=== PATIENT | female | born 1955 | race Caucasian/White ===

== ENCOUNTER 2024-04-12 12:55 | Outpatient (CLI) | payer MEDICARE, SELFPAY ==
[2024-04-12 13:39] LABS: Alanine Aminotransferase 18 U/L (6-35); Albumin Level 4.7 g/dL (3.5-5.1); Alkaline Phosphatase 111 U/L (38-126); Anion Gap 9 mmol/L (4-12); Aspartate Amino Transferase 24 U/L (14-36); Bilirubin,Total 0.6 mg/dL (0.2-1.3); Blood Urea Nitrogen 34 mg/dL (7-17); Calcium 9.9 mg/dL (8.4-10.2); Carbon Dioxide 27 mmol/L (22-30); Chloride 106 mmol/L (98-107); Estimated Glomerular Filt Rate 41; Glucose 89 mg/dL (65-110); Phosphorus 3.5 mg/dL (2.5-4.5); Sodium 142 mmol/L (137-145)
[2024-04-12 13:51] LABS: Parathyroid Intact 29.6 pg/mL (7.5-53.5)
[2024-04-12 14:11] LABS: Vitamin D 25 Hydroxy 63.5 ng/mL
[2024-04-14 15:33] LABS: Ionized Calcium 5.1 mg/dL (4.7-5.5)
== END 2024-04-12 12:56 | disposition home or self-care (01) ==
PROVIDERS: PCP Family Medicine; Visit Provider Nurse Practitioner Family
DX: M81.0 Age-related osteoporosis without current pathological fracture (principal); R94.4 Abnormal results of kidney function studies
CPT/HCPCS: 36415; 80053; 82306; 82330; 83735; 83970; 84100

== ENCOUNTER 2024-05-24 12:27 | Outpatient (CLI) | payer MEDICARE, SELFPAY ==
[2024-05-24 13:05] LABS: Alanine Aminotransferase 20 U/L (6-35); Albumin Level 4.6 g/dL (3.5-5.1); Alkaline Phosphatase 114 U/L (38-126); Anion Gap 12 mmol/L (4-12); Aspartate Amino Transferase 24 U/L (14-36); Bilirubin,Total 0.5 mg/dL (0.2-1.3); Blood Urea Nitrogen 40 mg/dL (7-17); Calcium 9.7 mg/dL (8.4-10.2); Carbon Dioxide 24 mmol/L (22-30); Chloride 107 mmol/L (98-107); Estimated Glomerular Filt Rate 50; Glucose 87 mg/dL (65-110); Magnesium 1.9 mg/dL (1.6-2.3); Phosphorus 3.2 mg/dL (2.5-4.5); Potassium 3.7 mmol/L (3.4-5.0); Sodium 143 mmol/L (137-145)
== END 2024-05-24 12:28 | disposition home or self-care (01) ==
LOC: ANHLAB 12:32
PROVIDERS: PCP Family Medicine; Visit Provider Nurse Practitioner Family
DX: M81.0 Age-related osteoporosis without current pathological fracture (principal); E55.9 Vitamin D deficiency, unspecified; R94.4 Abnormal results of kidney function studies
CPT/HCPCS: 36415; 80053; 83735; 84100

== ENCOUNTER 2024-06-21 13:10 | Outpatient (CLI) | payer MEDICARE, SELFPAY ==
[2024-06-21 13:59] LABS: Alanine Aminotransferase 25 U/L (6-35); Albumin Level 4.4 g/dL (3.5-5.1); Alkaline Phosphatase 125 U/L (38-126); Anion Gap 12 mmol/L (4-12); Aspartate Amino Transferase 29 U/L (14-36); Bilirubin,Total 0.5 mg/dL (0.2-1.3); Blood Urea Nitrogen 41 mg/dL (7-17); Carbon Dioxide 25 mmol/L (22-30); Chloride 99 mmol/L (98-107); Estimated Glomerular Filt Rate 50; Glucose 93 mg/dL (65-110); Magnesium 2.3 mg/dL (1.6-2.3); Phosphorus 3.7 mg/dL (2.5-4.5); Potassium 3.8 mmol/L (3.4-5.0); Sodium 136 mmol/L (137-145)
[2024-06-21 14:15] LABS: Vitamin D 25 Hydroxy 74.9 ng/mL
== END 2024-06-21 13:11 | disposition home or self-care (01) ==
LOC: ANHLAB 13:15
PROVIDERS: PCP Family Medicine; Visit Provider Nurse Practitioner Family
DX: M81.0 Age-related osteoporosis without current pathological fracture (principal); R94.4 Abnormal results of kidney function studies; E55.9 Vitamin D deficiency, unspecified
CPT/HCPCS: 36415; 80053; 82306; 83735; 84100

== ENCOUNTER 2024-07-26 13:11 | Outpatient (CLI) | payer MEDICARE, SELFPAY ==
[2024-07-26 14:02] LABS: Alanine Aminotransferase 21 U/L (6-35); Albumin Level 4.4 g/dL (3.5-5.1); Alkaline Phosphatase 116 U/L (38-126); Anion Gap 11 mmol/L (4-12); Aspartate Amino Transferase 26 U/L (14-36); Bilirubin,Total 0.5 mg/dL (0.2-1.3); Blood Urea Nitrogen 33 mg/dL (7-17); Carbon Dioxide 24 mmol/L (22-30); Chloride 106 mmol/L (98-107); Estimated Glomerular Filt Rate 50; Glucose 90 mg/dL (65-110); Magnesium 2.1 mg/dL (1.6-2.3); Phosphorus 2.9 mg/dL (2.5-4.5); Sodium 141 mmol/L (137-145)
[2024-07-26 14:17] LABS: Vitamin D 25 Hydroxy 69.5 ng/mL
[2024-07-31 11:43] LABS: Ionized Calcium 4.7 mg/dL (4.7-5.5)
== END 2024-07-26 13:12 | disposition home or self-care (01) ==
PROVIDERS: PCP Family Medicine; Visit Provider Nurse Practitioner Family
DX: M81.0 Age-related osteoporosis without current pathological fracture (principal); R94.4 Abnormal results of kidney function studies
CPT/HCPCS: 36415; 80053; 82306; 82330; 83735; 83970; 84100

== ENCOUNTER 2024-08-23 12:07 | Outpatient (CLI) | payer MEDICARE, SELFPAY ==
[2024-08-23 12:56] LABS: Alanine Aminotransferase 17 U/L (6-35); Albumin Level 4.4 g/dL (3.5-5.1); Alkaline Phosphatase 117 U/L (38-126); Anion Gap 10 mmol/L (4-12); Aspartate Amino Transferase 24 U/L (14-36); Bilirubin,Total 0.6 mg/dL (0.2-1.3); Blood Urea Nitrogen 38 mg/dL (7-17); Carbon Dioxide 25 mmol/L (22-30); Chloride 104 mmol/L (98-107); Estimated Glomerular Filt Rate 41; Glucose 96 mg/dL (65-110); Magnesium 2.1 mg/dL (1.6-2.3); Potassium 3.8 mmol/L (3.4-5.0); Sodium 139 mmol/L (137-145)
[2024-08-23 13:30] LABS: Vitamin D 25 Hydroxy 76.3 ng/mL
== END 2024-08-23 12:08 | disposition home or self-care (01) ==
LOC: ANHLAB 12:12
PROVIDERS: PCP Family Medicine; Visit Provider Nurse Practitioner Family
DX: M81.0 Age-related osteoporosis without current pathological fracture (principal); R94.4 Abnormal results of kidney function studies
CPT/HCPCS: 36415; 80053; 82306; 83735; 84100

== ENCOUNTER 2024-09-27 13:29 | Outpatient (CLI) | payer MEDICARE, SELFPAY ==
[2024-09-27 14:17] LABS: Alanine Aminotransferase 25 U/L (6-35); Albumin Level 4.5 g/dL (3.5-5.1); Alkaline Phosphatase 106 U/L (38-126); Anion Gap 9 mmol/L (4-12); Aspartate Amino Transferase 30 U/L (14-36); Bilirubin,Total 0.8 mg/dL (0.2-1.3); Blood Urea Nitrogen 35 mg/dL (7-17); Calcium 9.9 mg/dL (8.4-10.2); Carbon Dioxide 26 mmol/L (22-30); Chloride 105 mmol/L (98-107); Estimated Glomerular Filt Rate 37; Glucose 94 mg/dL (65-110); Phosphorus 3.5 mg/dL (2.5-4.5); Potassium 3.8 mmol/L (3.4-5.0); Sodium 140 mmol/L (137-145)
[2024-09-27 14:58] LABS: Vitamin D 25 Hydroxy 68.9 ng/mL
[2024-09-29 09:53] LABS: Ionized Calcium 5.1 mg/dL (4.7-5.5)
== END 2024-09-27 13:30 | disposition home or self-care (01) ==
PROVIDERS: PCP Family Medicine; Visit Provider Nurse Practitioner Family
DX: M81.0 Age-related osteoporosis without current pathological fracture (principal)
CPT/HCPCS: 36415; 80053; 82306; 82330; 83735; 83970; 84100

== ENCOUNTER 2024-11-03 14:16 | Outpatient (CLI) | payer MEDICARE, SELFPAY ==
[2024-11-03 14:54] LABS: Alanine Aminotransferase 19 U/L (6-35); Albumin Level 4.4 g/dL (3.5-5.1); Alkaline Phosphatase 102 U/L (38-126); Anion Gap 5 mmol/L (4-12); Aspartate Amino Transferase 26 U/L (14-36); Bilirubin,Total 0.6 mg/dL (0.2-1.3); Blood Urea Nitrogen 29 mg/dL (7-17); Calcium 9.5 mg/dL (8.4-10.2); Carbon Dioxide 29 mmol/L (22-30); Chloride 106 mmol/L (98-107); Estimated Glomerular Filt Rate 45; Glucose 93 mg/dL (65-110); Potassium 4.1 mmol/L (3.4-5.0); Sodium 140 mmol/L (137-145)
== END 2024-11-03 14:17 | disposition home or self-care (01) ==
PROVIDERS: PCP Family Medicine; Visit Provider Nurse Practitioner Family
DX: M18.0 Bilateral primary osteoarthritis of first carpometacarpal joints (principal)
CPT/HCPCS: 36415; 80053; 83735; 84100

== ENCOUNTER 2024-12-19 15:36 | Outpatient (CLI) | payer MEDICARE, SELFPAY ==
--- OUTSIDE RECORDS SUMMARY | 2024-12-19 15:41 | XMS_ITS | Clinical Summary ---
Author Organization [facility] [employer] Address [address] [place] [address] Care Team Providers Care Electrical Estimator Name Role Phone Duy Newman MD Primary Care Provider [phone] Source Comments [facility],non-owned Affiliates and Associated Physician Practices is amultiple site organization consisting of ambulatory clinics and hospital sitesin [place], [place], [place] and [place]. This disclosure is being madepursuant to the Care Everywhere program and may not contain all information available regarding this patient. Last updated 18.[facility] [employer] Allergies Active Allergy Reactions Criticality Noted Date Comments Latex Rash Medium 08/08/2018 Vilazodone Hcl Swelling 07/01/2020 Alprazolam Shortness of Breath,Vision Changes High 0 02/28/2019 rash Zyprexa Swelling 03/26/2019 Medications * Be aware that medications may not be up to date on this document. Alwaysverify current medications with the patient. Medication Sig Dispensed Refills Start Date End Date Status Multiple Vitamins-Calcium (GNP ONE DAILY [employer] [facility] PO) Take 1 tablet by mouth once daily Active BIOTIN 5000 PO Take 5,000 mcg by mouth once daily Active Garlic 1000 MG Take 1,000 mg by mouth once daily Active calcium-vitamin D (CALTRATE PLUS D) 600-200 MG-UNIT tablet Take 1 (one) tablet by mouth 2 times daily 180 tablet 5 11/24/2020 Active SUMAtriptan (IMITREX) 50 MG tablet TAKE 1 TABLET AT ONSET OF HEADACHE. MAY REPEAT IN 2 HOURS. NO MORE THAN 2/DAY. 9 tablet 5 11/15/2021 Active citalopram (CELEXA) 20 MG tabletIndications: Generalized anxiety disorder,Depressio n, unspecified depression type Take 1 (one) tablet by mouth once daily 30 tablet 5 11/23/2021 Active Additional Information Patient taking differently: 10 mgOral DAILY, Reported on 03/24/2022 topiramate (TOPAMAX) 50 MG tablet Take 1 (one) tablet by mouth once daily 90 tablet 1 11/25/2021 Active Additional Information Patient taking differently:50 mg OralEVERY MORNING, Reported on 03/24/2022 amLODIPine (NORVASC) 5 MG tablet Take 1 (one) tablet by mouth once daily 90 tablet 1 11/25/2021 Active Additional Information Patient taking differently:5 mg OralEVERY MORNING, Reported on 03/24/2022 famotidine (PEPCID) 40 MG tablet TAKE 1 TABLET BY MOUTH TWICE DAILY 30 tablet 5 12/21/2021 Active Calcium-Magnesium- Vitamin D (CALCIUM 1200+D3 PO) Take 2 tablets by mouth once daily Active vitamin D3 (CHOLECALCIFEROL) 25 MCG (1000 UNITS) tablet Take 1,000 Units by mouth once daily Active ascorbic acid (VITAMIN C) 500 MG tablet Take 500 mg by mouth once daily Active traMADol (ULTRAM) 50 MG tablet Take 2 (two) tablets by mouth 4 times daily 120 tablet 03/24/2022 Active acetaminophen (TYLENOL) 325 MG tablet Take 2 (two) tablets by mouth every 6 hours as needed Maximum allowable Acetaminophen amount = 4 Grams (4000 mg) / 24 hours. 03/24/2022 Active NARCAN 4 MG/0.1ML nasal spray 05/31/2021 Active pravastatin (PRAVACHOL) 40 MG tablet TAKE 1 TABLET BY MOUTH EVERY AT BEDTIME 90 tablet 1 04/17/2022 Active Active Problems Problem Noted Date Diagnosed Date Status post left knee replacement 03/22/2022 Class 2 severe obesity due t o excess calories with serious comorbidity and body mass index (BMI) of 39.0 to 39.9 in adult 05/26/2021 Stage 3 chronic kidney disease 05/26/2021 Bipolar disorder in full remission 05/24/2021 Overview (05/24/2021): Bola Carrillo MD 12/11/19 Atherosclerosis of aorta 05/24/2021 Overview (05/24/2021): Chest xray 11/13/19 Bipolar affective disorder 10/08/2019 Overview (10/08/2019): 07.29.19 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 Essential hypertension 05/09/2019 Hyperlipidemia 05/09/2019 Migraine without status migrainosus, not intract able 05/09/2019 Elevated serum creatinine 01/29/2019 Urinary tract infection without hematuria 2018 LISA (generalized anxiety disorder) 11/07/2018 Recurrent major depressive disorder, in remissio n Resolved Problems Problem Noted Date Diagnosed Date Resolved Date Bipolar I disorder, single m anic episode, severe with psychotic features 01/10/2019 9 Hallucinations 01/09/2019 04/18/2019 Acute psychosis 01/09/2019 06/09/2019 Depressive disorder 12/30/2018 04/18/20 19 Immunizations Name Administration Dates Next Due [employer] primary monoval ent 12+ yr 0.3mL Purple cap 09/14/2021,02/02/2021,01/12/2021 INFLUENZA VACCINE, QUADR. (F LUZONE; FLULAVAL; FLUARIX; AFLURIA QUADRIVALENT; 6MO+), 0.5 ML (IIV4) 08/11/2021,08/24/2020,01/10/2019 Pneumococcal Pcv13 Conj 11/15/2021 TDAP (7yrs+) 08/08/2018 Family History Medical History Relation Name Comments Cancer - Ovarian Maternal Grandmother pos t menopausal Cancer - Breast Sister Relation Name Status Comments Maternal Grandmother Sister Social History Tobacco Use Types Packs/Day Years Used Date Smoking Tobacco: Former Cigarettes 0.3 15 0 11/12/1995 - 11/12/2010 Smokeless Tobacco: Never Tobacco Cessation:Counseling Given: Yes Alcohol Use Standard Drinks/Week Comments No 0 (1 standard drink = 0.6 oz pur e alcohol) AUDIT-C Answer Date Recorded Q1: How often do you have a drink containing alc ohol? Never 03/22/2022 Average Number of Drinks Not on file 022 Q3: How often do you have si x or more drinks on one occasion? Never 03/22/2022 PHQ-2 Answer Date Recorded PHQ2 TOTAL SCORE 0 03/27/2022 Hunger Vital Sign Answer Date Recorded Within the past 12 months, y ou worried that your food would run out before you got the money to buy more. Never true 03/23/20 22 Within the past 12 months, t he food you bought just didn't last and you didn't have money to get more. Never true 03/23/2022 Sex and Gender Information Value Date Recorded Sex Assigned at Not on file Gender Identity Not on file Sexual Orientation Not on file Last Filed Vital Signs Vital Sign Reading Time Taken Comments Blood Pressure 105/48 03/25/2022 8:11 AM CDT Pulse 65 03/25/2022 8:11 AM CDT Temperature 36.8 C (98.2 F) 03/25/2022 8:11 AM CDT Respiratory Rate 18 03/25/2022 8:11 AM CDT Oxygen Saturation 96% 03/25/2022 8:11 AM CDT Inhaled Oxygen Concentration - - Weight 89 kg (196 lb 3.4 oz) 03/22/2022 5:17 PM CDT Height 154.9 cm (5' 1 ) 03/22/2022 5:17 PM CDT Body Mass Index 37.07 03/22/2022 5:17 PM CDT Plan of Treatment Health Maintenance Due Date Last Done Comments COLOGUARD (AGES 45-75) - COLON CA SCREENING 1956 COLON MONITORING 1956 COLONOSCOPY - COLON CA SCREENING 1956 CT COLONOGRAPHY - COLON CA SCREENING 1955 Colorectal Cancer Screening 1956 FIT - COLON CA SCREENING 1956 FLEX SIG - COLON CA SCREENING 1956 ZOSTER VACCINE (1 of 2) 2006 MAMMOGRAM 08/04/2022 08/04/2020, 07/02/2019 PNEUMOCOCCAL VACCINE 50+ (2 of 2 - PPSV23) 11/15/2022 11/15/2021 COVID-19 VACCINE (4 - season) 2024 09/14/2021, 02/02/2021, 01/12/2021 INFLUENZA VACCINE (#1) 2024 , 08/24/2020, 01/10/2019 MEDICARE AWV CALENDAR YEAR 2024 11/15/2021, 07/01/2020 SCREENING FOR DIABETES 03/25/2025 2, 03/24/2022, 03/23/2022, Additional history exists DTAP/TDAP/TD VACCINES (2 - Td or Tdap) 08/08/2028 08/08/2018 Respiratory Syncytial Virus (RSV) Vaccine Pt: or over 60 yrs (1 - 1-dose 75+ series) 2031 BONE DENSITY TESTING Completed 07/02/2019 HEPATITIS C SCREENING Completed 12/11/2019 HEPATITIS B VACCINE Aged Out No longe r eligible based on patient's age to complete this topic HIB VACCINE Aged Out No longer eligi ble based on patient's age to complete this topic HPV VACCINE Aged Out No longer eligi ble based on patient's age to complete this topic MENINGOCOCCAL (Group B) VACCINE Aged Out No longer eligible based on patient's age to complete this topic MENINGOCOCCAL VACCINE Aged Out No megan avery eligible based on patient's age to complete this topic Medical Devices Implanted Type Area Machine Shop Worker Device Identifier Shelf Expiration Date Model / Serial / Lot Cmnt Bone Plc Mv+G Gnta 40gm Med Vsc Implanted:Qty: 1 on 03/22/2022 by Suman Jones MD at [facility] Patric Left: Knee Heraeus Kulzer Bhavana 08/11/2024 [id number] / / [id number] Cmnt Bone Plc Mv+G Gnta 40gm Med Vsc Implanted:Qty: 1 on 03/22/2022 by Suman Jones MD at [facility] Patric Left: Knee Heraeus Kulzer [employer] 09/11/2023 [id number] / / [id number] Cmpnt Fem Kn Lt 4 Post Stab Gns2 Legion Implanted:Qty: 1 on 03/22/2022 by Suman Jones MD at [facility] Patric Left: Knee [employer] 02/07/2032 [id number] / / [id number] Bsplt Tib Legion 4 Kn Lt Cmnt M Tpr Ti Implanted:Qty: 1 on 03/22/2022 by Suman Jones MD at [facility] Patric Left: Knee [employer] 12/09/2031 [id number] / / [id number] Cmpnt Ptlr 26mm Rsrfc Journey Lck Gns2 Implanted:Qty: 1 on 03/22/2022 by Suman Jones MD at [facility] Patric Left: Knee [employer] 10/19/2031 [id number] / / [id number] Ins Tib 3-4 10mm Kn Xlpe Post Stab Hi Implanted:Qty: 1 on 03/22/2022 by Suman Jones MD at [facility] Patric Left: Knee [employer] 04/15/2027 [id number] / / [id number] Explanted Type Area Machine Shop Worker Device Identifier Shelf Expiration Date Model / Serial / Lot Pin Fx 65mm Spd Strl Explanted:Qty: 1 on 03/22/2022 at [facility] Patric Left: Knee [employer] [id number] / / Pin Fx 30mm Spd Rim Strl Explanted:Qty: 1 on 03/22/2022 at [facility] Patric Left: Knee [employer] [id number] / / Procedures Procedure Name Priority Date/Time Associated Diagnosis Comments RENAL FUNCTION PANEL AM Draw 03/25/2022 6:25 AM CDT MAMMO BILAT SCREENING Routine 08/04/2020 3:03 PM CDT Breast cancer screening HEPATITIS C ANTIBODY Routine 12/11/2019 10:53 AM [employer] Need for influenza vaccination DEXA BONE DENSITY AXIAL SKELETON Routine 07/02/2019 3:56 PM CDT Postmenopausal from Last 3 Months or Most Recently Relevant to Health Maintenance Results * (ABNORMAL) RENAL FUNCTION PANEL (03/25/2022 6:25 AM CDT) [facility] Glucose 99 70 - 125 mg/dL 03/25/2022 7:00 AM CDT [facility] Sodium 136 136 - 145 mmol/L 03/25/2022 7:00 AM CDT [facility] Potassium 5.5(H) 3.4 - 5.1 mmol/L 03/25/2022 7:00 AM CDT [facility] Chloride 104 98 - 107 mmol/L 03/25/2022 7:00 AM CDT [facility] CO2 23 22 - 29 mmol/L 03/25/2022 7:00 AM CDT [facility] Calcium 8.66 8.4 - 10.2 mg/dL 03/25/2022 7:00 AM T [facility] Anion Gap 15 10 - 20 mmol/L 03/25/2022 7:00 AM CDT [facility] BUN 28.0(H) 9.8 - 20.1 mg/dL 03/25/2022 7:00 AM T [facility] Creatinine 1.12(H) 0.57 - 1.11 mg/dL 03/25/2022 7:00 AM T [facility] Albumin 2.9(L) 3.5 - 5.0 gm/dL 03/25/2022 7:00 AM T [facility] Phosphorus 3.06 2.3 - 4.7 mg/dL 03/25/2022 7:00 AM T [facility] eGFR by MDRD 49(L) >60 mL/min/1.7 2 03/25/2022 7:00 AM T [facility] eGFR by MDRD 59(L) >60 mL/min/1.7 3m2 03/25/2022 7:00 AM CDT [facility] Blood BLOOD SPECIMEN / Unknown Lab Venipuncture / Unknown 03/25/2022 6:25 AM CDT 03/25/2022 6:38 AM CDT Juan Alberto Mccormick MD LAB - CHEMISTR Y ORDERABLES Performing Organization Address City/State/[facility] Co de Phone Number [facility] [address] [place], [place] [address] * MAMMO BILAT SCREENING (08/04/2020 3:03 PM CDT) Anatomical Region Laterality Modality Breast Bilateral Mammography 08/04/2020 3:08 PM CDT Impressions 08/04/2020 3:08 PM CDT BI-RADS category 2. RECOMMENDATION: Routine annual screening. A). A negative report should not delay a biopsy if a dominant or clinically suspicious mass is present. B). Adenosis and dense breasts may obscure an underlying neoplasm. C). Study interpreted with computer-aided detection. MQSA BI-RADS Categories: Category 0 - needs additional imaging evaluation. Category 1 - negative. Category 2 - benign findings. Category 3 - probably benign findings, but short interval follow up is recommended. Category 4 - suspicious abnormality and biopsy should be considered though the lesion may well be benign. Category 5 - highly suggestive of malignancy and appropriate action should be taken. Narrative 08/04/2020 3:08 PM CDT PROCEDURE: MAMMO BILAT SCREENING 08/04/2020 3:04 PM HISTORY: Encounter for screening mammogram for malignant neoplasm of breast. FINDINGS AND IMPRESSION: COMPARISON: Prior study/studies dating back to No comparison. FINDINGS: Digital 2-D mammography with CAD was performed and reviewed. 3-D tomosynthesis was performed of the breast(s) in the MLO projection and reviewed. BREAST COMPOSITION: There are scattered areas of fibroglandular density. No masses or abnormal calcifications documented. No change has occurred. Bola Carrillo MD MAMMO ORDERABLES * HEPATITIS C ANTIBODY (12/11/2019 10:53 AM [employer] [facility]) Interpretation Hepatitis C Antibody [place] Negative Negative 12/12/2019 10:59 AM [employer] [facility] ([facility]) Comment: INTERPRETIVE INFORMATION: Hepatitis C Virus Antibody by [place] Index: 0.79 IV or less .................. Negative 0.80 to 0.99 IV .................. Equivocal 1.00 to 10.99 IV ................. Low Positive 11.00 IV or greater .............. High Positive Index Value (IV) = Anti-HCV signal to cutoff (S/C)ratio This assay should not be used for blood donor screening, associated re-entry protocols, or for screening Human Cells, Tissues and Cellular and Tissue-Based Products (HCT/P). Interpretation Hepatitis C Antibody Index 0.05 IV 12/12/2019 10:59 AM [employer] [facility] ([facility]) Comment: Performed by [facility], [address] [place] [address] [email or web address], Jeremy Oneal MD, Lab. Director Blood BLOOD SPECIMEN / Unknown Lab Venipuncture / Unknown 12/11/2019 10:53 AM [employer] [facility] 12/11/2019 11:00 AM [employer] Bola Carrillo MD LAB - CHEMISTRY BARB WYLIE [facility] ([facility]) [address] [place] [address], [facility] * DEXA BONE DENSITY STUDY [id number] (07/02/2019 3:56 PM CDT) Anatomical Region Laterality Modality Radiographic Chelsea ging 07/02/2019 5:02 PM CDT Impressions 07/02/2019 5:03 PM CDT Severe osteopenia approaching osteoporosis Increased risk for fracture Follow-up in one to 2 years. 10 year probability of fracture Major osteoporotic fracture 11.3% Hip fracture 2.1% Narrative 07/02/2019 5:03 PM CDT PROCEDURE: DEXA BONE DENSITY AXIAL SKELETON 07/02/2019 5:02 PM HISTORY: Asymptomatic menopausal state. FINDINGS AND IMPRESSION: COMPARISON: No comparison. HIP JOINTS:. BMD-0.708 g centimeters square T score -2.4 Z score -1.4. LUMBAR SPINE:. BMD-1.060 g centimeters square T score -1.1 Z score -0.3. Procedure Note Lisa Shultz MD - 07/02/2019 PROCEDURE: DEXA BONE DENSITY AXIAL SKELETON 07/02/2019 5:02 PM HISTORY: Asymptomatic menopausal state. FINDINGS AND IMPRESSION: COMPARISON: No comparison. HIP JOINTS:. BMD-0.708 g centimeters square T score -2.4 Z score -1.4. LUMBAR SPINE:. BMD-1.060 g centimeters square T score -1.1 Z score -0.3. IMPRESSION Severe osteopenia approaching osteoporosis Increased risk for fracture Follow-up in one to 2 years. 10 year probability of fracture Major osteoporotic fracture 11.3% Hip fracture 2.1% Bola Carrillo MD DEXA ORDERABLES from Last 3 Months or Most Recently Relevant to Health Maintenance Additional Health Concerns Infection Onset Date Last Indicated MRSA Comment:+ MRSA nares 03/15/22 03/15/2022 03/15/2022 Advance Directives * Full Code (Latest Code Status on File) Date Activated Date Inactivated Comments 03/22/2022 10:32 AM 03/25/2022 6:18 PM * Full Code Date Activated Date Inactivated Comments 01/09/2019 2:21 PM 01/13/2019 11:58 AM Care Teams Electrical Estimator Relationship Specialty Start Date End Date Duy Newman MD [address] [place] [id number] PCP - General Family Medicine 03/15/22
--- OUTSIDE RECORDS SUMMARY | 2024-12-19 15:41 | XMS_ITS | Patient Health Summary ---
Author Organization [facility] Address [address] [place] [address] Care Team Providers Care Electron Beam Welder Name Role Phone Duy Newman MD Primary Care Provider [phone] Note from [facility],non-owned Affiliates and Associated Physician Practices is amultiple site organization consisting of ambulatory clinics and hospital sitesin [place], [place], [place] and [place]. This disclosure is being madepursuant to the Care Everywhere program and may not contain all information available regarding this patient. Last updated 18.[facility] Allergies * Latex(Rash) -Medium Criticality * Vilazodone Hcl(Swelling) * Alprazolam(Shortness of Breath,Vision Changes) -High Criticality * Zyprexa(Swelling) Medications * Be aware that medications may not be up to date on this document. Alwaysverify current medications with the patient. * Multiple Vitamins-Calcium (GNP ONE DAILY WOMENS HEALTH PO) Take 1 tablet by mouth once daily * BIOTIN 5000 PO Take 5,000 mcg by mouth once daily * Garlic 1000 MG Take 1,000 mg by mouth once daily * calcium-vitamin D (CALTRATE PLUS D) 600-200 MG-UNIT tablet(Started 11/24/2020) Take 1 (one) tablet by mouth 2 times daily 5 refills by 11/24/2021 * SUMAtriptan (IMITREX) 50 MG tablet(Started 11/15/2021) TAKE 1 TABLET AT ONSET OF HEADACHE. MAY REPEAT IN 2 HOURS. NO MORE THAN 2/DAY. 5 refills by 11/15/2022 * citalopram (CELEXA) 20 MG tablet(Started 11/23/2021) Take 1 (one) tablet by mouth once daily 5 refills by 11/23/2022 * topiramate (TOPAMAX) 50 MG tablet(Started 11/25/2021) Take 1 (one) tablet by mouth once daily 1 refill by 11/25/2022 * amLODIPine (NORVASC) 5 MG tablet(Started 11/25/2021) Take 1 (one) tablet by mouth once daily 1 refill by 11/25/2022 * famotidine (PEPCID) 40 MG tablet(Started 12/21/2021) TAKE 1 TABLET BY MOUTH TWICE DAILY 5 refills by 12/21/2022 * Ndvdtkt-Kcbhvkrpj-Vcnpqvq D (CALCIUM 1200+D3 PO) Take 2 tablets by mouth once daily * vitamin D3 (CHOLECALCIFEROL) 25 MCG (1000 UNITS) tablet Take 1,000 Units by mouth once daily * ascorbic acid (VITAMIN C) 500 MG tablet Take 500 mg by mouth once daily * traMADol (ULTRAM) 50 MG tablet(Started 03/24/2022) Take 2 (two) tablets by mouth 4 times daily * acetaminophen (TYLENOL) 325 MG tablet(Started 03/24/2022) Take 2 (two) tablets by mouth every 6 hours as needed Maximum allowable Acetaminophen amount = 4 Grams (4000 mg) / 24 hours. * NARCAN 4 MG/0.1ML nasal spray(Started 05/31/2021) * pravastatin (PRAVACHOL) 40 MG tablet(Started 04/17/2022) TAKE 1 TABLET BY MOUTH EVERY AT BEDTIME 1 refill by 04/17/2023 Active Problems Problem Noted Date Diagnosed Date Status post left knee replacement 03/22/2022 Class 2 severe obesity due t o excess calories with serious comorbidity and body mass index (BMI) of 39.0 to 39.9 in adult 05/26/2021 Stage 3 chronic kidney disease 05/26/2021 Bipolar disorder in full remission 05/24/2021 Atherosclerosis of aorta 05/24/2021 Bipolar affective disorder 10/08/2019 Essential hypertension 05/09/2019 Hyperlipidemia 05/09/2019 Migraine without [...] 06/09/2019 Depressive disorder 12/30/2018 04/18/20 19 Immunizations * Covid Pfizer primary monovalent 12+ yr 0.3mL Purple cap(Given 09/14/2021, 02/02/2021, 01/12/2021) * INFLUENZA VACCINE, QUADR. (FLUZONE; FLULAVAL; FLUARIX; AFLURIA QUADRIVALENT; 6MO+), 0.5 ML (IIV4)(Given 08/11/2021, 08/24/2020, 01/10/2019) * Pneumococcal Pcv13 Conj(Given 11/15/2021) * TDAP (7yrs+)(Given 08/08/2018) Social History Tobacco Use Types Packs/Day Years [...] Mass Index 37.07 03/22/2022 5:17 PM CDT Medical Devices Implanted Type Area Production Control Pegboard Clerk Device Identifier Shelf Expiration Date Model / Serial / Lot Cmnt Bone Plc Mv+G Gnta 40gm Med Vsc Implanted:Qty: 1 on 03/22/2022 by Suman Jones MD at [facility] [place] Left: Knee Herae[employer] Kul[employer] Jelenko 08/11/2024 [id number] / / [id number] Cmnt Bone Plc Mv+G Gnta 40gm Med Vsc Implanted:Qty: 1 on 03/22/2022 by Suman Jones MD at [facility] Left: Knee Heraeus Kul[employer] Jelenko 09/11/2023 [id number] / / [id number] Cmpnt Fem Kn Lt 4 Post Stab Gns2 Legion Implanted:Qty: 1 on 03/22/2022 by Suman Jones MD at [facility] Left: Knee [employer] 02/07/2032 [id number] / / [id number] Bsplt Tib Legion 4 Kn Lt Cmnt M Tpr Ti Implanted:Qty: 1 on 03/22/2022 by Suman Jones MD at [facility] Left: Knee [employer] 12/09/2031 [id number] / / [id number] Cmpnt Ptlr 26mm Rsrfc Journey Lck Gns2 Implanted:Qty: 1 on 03/22/2022 by Suman Jones MD at [facility] Left: Knee [employer] 10/19/2031 [id number] / / [id number] Ins Tib 3-4 10mm Kn Xlpe Post Stab Hi Implanted:Qty: 1 on 03/22/2022 by Suman Jones MD at [facility] Left: Knee [employer] 04/15/2027 [id number] / / [id number] Explanted Type Area Production Control Pegboard Clerk Device Identifier Shelf Expiration Date Model / Serial / Lot Pin Fx 65mm Spd Strl Explanted:Qty: 1 on 03/22/2022 at [facility] Left: Knee [employer] [id number] / / Pin Fx 30mm Spd Rim Strl Explanted:Qty: 1 on 03/22/2022 at [facility] Left: Knee [employer] [id number] / / Procedures * XR KNEE RIGHT 4VW OR MORE(Performed 04/20/2023) Performed for Right knee pain, unspecified chronicity * XR KNEE RIGHT 4VW OR MORE(Performed 03/09/2023) Performed for Right knee pain, unspecified chronicity * XR KNEE LEFT 3VW(Performed 03/09/2023) Performed for Left knee pain, unspecified chronicity * XR KNEE LEFT 3VW(Performed 10/20/2022) Performed for Left knee pain, unspecified chronicity * XR KNEE LEFT 3VW(Performed 06/02/2022) Performed for Left knee pain, unspecified chronicity * CARDIAC RHYTHM STRIP ORDER(Performed 03/28/2022) * SARS-COV-2 (COVID-19) RAPID(Performed 03/25/2022) * RENAL FUNCTION PANEL(Performed 03/25/2022) * CBC W AUTO DIFFERENTIAL(Performed 03/25/2022) * COMPREHENSIVE METABOLIC PANEL(Performed 03/24/2022) * CBC W AUTO DIFFERENTIAL(Performed 03/24/2022) * CBC W AUTO DIFFERENTIAL(Performed 03/23/2022) * BASIC METABOLIC PANEL (CALCIUM TOTAL)(Performed 03/23/2022) * XR KNEE LEFT 2VW OR LESS(Performed 03/22/2022) Performed for Status post left knee replacement * GROSS + MICRO EXAM (ILL)(Performed 03/22/2022) Performed for Primary osteoarthritis of left knee * NEURAXIAL BLOCK(Performed 03/22/2022) * ARTHROPLASTY TOTAL KNEE(Performed 03/22/2022) Performed for Primary osteoarthritis of left knee * BLOOD TYPE VERIFICATION(Performed 03/22/2022) * TYPE + SCREEN PANEL(Performed 03/15/2022) Performed for Primary osteoarthritis of left knee, Preop examination * URINALYSIS REFLEX MICROSCOPIC REFLEX CULTURE(Performed 03/15/2022) * CBC W AUTO DIFFERENTIAL(Performed 03/15/2022) Performed for Primary osteoarthritis of left knee, Preop examination * MRSA + SA DNA PCR PANEL(Performed 03/15/2022) Performed for Primary osteoarthritis of left knee, Preop examination * COMPREHENSIVE METABOLIC PANEL(Performed 02/21/2022) Performed for Menopausal osteoporosis * MAGNESIUM BLOOD(Performed 02/21/2022) Performed for Menopausal osteoporosis * PHOSPHORUS BLOOD(Performed 02/21/2022) Performed for Menopausal osteoporosis * MAGNESIUM BLOOD(Performed 01/25/2022) Performed for Menopausal osteoporosis * COMPREHENSIVE METABOLIC PANEL(Performed 01/25/2022) Performed for Menopausal osteoporosis * PHOSPHORUS BLOOD(Performed 01/25/2022) Performed for Menopausal osteoporosis * COMPREHENSIVE METABOLIC PANEL(Performed 12/22/2021) Performed for Menopausal osteoporosis * VITAMIN D 25-HYDROXY(Performed 12/22/2021) Performed for Menopausal osteoporosis * MAGNESIUM BLOOD(Performed 12/22/2021) Performed for Menopausal osteoporosis * PTH INTACT(Performed 12/22/2021) Performed for Menopausal osteoporosis * CALCIUM IONIZED BLOOD(Performed 12/22/2021) Performed for Menopausal osteoporosis * PHOSPHORUS BLOOD(Performed 12/22/2021) Performed for Menopausal osteoporosis * ALKALINE PHOSPHATASE BLOOD BONE SPECIFIC(Performed 12/22/2021) Performed for Menopausal osteoporosis * XR CHEST 2VW(Performed 11/15/2021) Performed for Cough * CALCIUM BLOOD(Performed 11/15/2021) Performed for Menopausal osteoporosis * CALCIUM BLOOD(Performed 10/11/2021) Performed for Menopausal osteoporosis * CALCIUM BLOOD(Performed 08/23/2021) Performed for Menopausal osteoporosis * CALCIUM BLOOD(Performed 07/25/2021) Performed for Menopausal osteoporosis * COMPREHENSIVE METABOLIC PANEL(Performed 06/29/2021) Performed for Menopausal osteoporosis * VITAMIN D 25-HYDROXY(Performed 06/29/2021) Performed for Menopausal osteoporosis * MAGNESIUM BLOOD(Performed 06/29/2021) Performed for Menopausal osteoporosis * PTH INTACT(Performed 06/29/2021) Performed for Menopausal osteoporosis * CALCIUM IONIZED BLOOD(Performed 06/29/2021) Performed for Menopausal osteoporosis * ALKALINE PHOSPHATASE BLOOD BONE SPECIFIC(Performed 06/29/2021) Performed for Menopausal osteoporosis * PHOSPHORUS BLOOD(Performed 06/29/2021) Performed for Menopausal osteoporosis * COLOGUARD TEST(Performed 06/11/2021) Performed for Screening for colon cancer, Special screening for malignant neoplasms, colon * XR RIBS RIGHT 2VW(Performed 05/20/2021) Performed for Fall, initial encounter * XR ELBOW LEFT 3VW OR MORE(Performed 05/20/2021) Performed for Fall, initial encounter * XR WRIST RIGHT 3VW OR MORE(Performed 05/20/2021) Performed for Fall, initial encounter * CBC W AUTO DIFFERENTIAL(Performed 11/24/2020) Performed for Essential hypertension * LIPID PROFILE(Performed 11/24/2020) Performed for High cholesterol * COMPREHENSIVE METABOLIC PANEL(Performed 11/24/2020) Performed for Essential hypertension * XR KNEE LEFT 4VW OR MORE(Performed 08/24/2020) Performed for Chronic pain of left knee * MAMMO BILAT SCREENING(Performed 08/04/2020) Performed for Breast cancer screening * XR LUMBAR SPINE 4VW OR MORE(Performed 04/23/2020) Performed for Acute bilateral low back pain without sciatica * URINALYSIS - POCT (IP) BEAKER INTERFACE(Performed 04/23/2020) Performed for Acute bilateral low back pain without sciatica, Urinary frequency * URINALYSIS - POCT (IP) NOTIFICATION(Performed 04/23/2020) Performed for Acute bilateral low back pain without sciatica, Urinary frequency * XR ANKLE LEFT 3VW OR MORE(Performed 02/20/2020) Performed for Acute left ankle pain * RENAL FUNCTION PANEL(Performed 01/16/2020) Performed for CKD (chronic kidney disease) stage 3, GFR 30-59 ml/min ([facility]) * CBC W AUTO DIFFERENTIAL(Performed 01/16/2020) Performed for CKD (chronic kidney disease) stage 3, GFR 30-59 ml/min ([facility]) * LIPID PROFILE(Performed 01/16/2020) Performed for CKD (chronic kidney disease) stage 3, GFR 30-59 ml/min ([facility]), Mixed hyperlipidemia * URINALYSIS REFLEX TO MICROSCOPIC NO CULTURE(Performed 01/16/2020) Performed for CKD (chronic kidney disease) stage 3, GFR 30-59 ml/min ([facility]) * HEPATITIS C ANTIBODY(Performed 12/11/2019) Performed for Need for influenza vaccination * VITAMIN D 25-HYDROXY(Performed 12/11/2019) Performed for Vitamin D deficiency * XR CHEST 2VW(Performed 11/13/2019) Performed for Acute bronchitis, unspecified organism * CBC W AUTO DIFFERENTIAL(Performed 10/08/2019) Performed for Arthritis of spine * TSH(Performed 10/08/2019) Performed for Chronic fatigue * VITAMIN D 25-HYDROXY(Performed 10/08/2019) Performed for Vitamin D deficiency * COMPREHENSIVE METABOLIC PANEL(Performed 10/08/2019) Performed for Arthritis of spine * DEXA BONE DENSITY AXIAL SKELETON(Performed 07/02/2019) Performed for Postmenopausal * MAMMO BILAT SCREENING(Performed 07/02/2019) Performed for Breast cancer screening * BASIC METABOLIC PANEL (CALCIUM TOTAL)(Performed 04/11/2019) Performed for LISHA (acute kidney injury) ([facility]) * LIPID PROFILE(Performed 04/11/2019) Performed for Hyperlipidemia, unspecified hyperlipidemia type * VAS BILATERAL VENOUS DUPLEX LE(Performed 02/17/2019) Performed for Generalized edema * ECHOCARDIOGRAM 2D WITH DOPPLER(Performed 02/17/2019) Performed for Dyspnea, unspecified type * HEMOGLOBIN A1C(Performed 02/14/2019) Performed for Bipolar I disorder, single manic episode, severe with psychotic features (HCC) * TSH(Performed 02/14/2019) Performed for Bipolar I disorder, single manic episode, severe with psychotic features (HCC), Edemaof both legs * CBC W AUTO DIFFERENTIAL(Performed 02/14/2019) Performed for Edema of both legs * COMPREHENSIVE METABOLIC PANEL(Performed 02/14/2019) Performed for Bipolar I disorder, single manic episode, severe with psychotic features (HCC), Edemaof both legs, Elevated serum creatinine * US RETROPERITONEAL LIMITED(Performed 01/28/2019) Performed for Renal failure, unspecified chronicity * CARDIAC EKG ORDER(Performed 01/22/2019) * CARDIAC RHYTHM STRIP ORDER(Performed 01/21/2019) * CARDIAC EKG ORDER(Performed 01/21/2019) * XR CHEST 1VW PORTABLE(Performed 01/18/2019) Performed for Fatigue, unspecified type, Bilateral lower extremity edema * EKG 12-LEAD(Performed 01/18/2019) Performed for Fatigue, unspecified type, Bilateral lower extremity edema * B-TYPE NATRIURETIC PEPTIDE(Performed 01/18/2019) * PHOSPHORUS BLOOD(Performed 01/18/2019) * MAGNESIUM BLOOD(Performed 01/18/2019) * COMPREHENSIVE METABOLIC PANEL(Performed 01/18/2019) * CBC W AUTO DIFFERENTIAL(Performed 01/18/2019) * URINE MICROSCOPIC ONLY REFLEX TO CULTURE(Performed 01/18/2019) * URINALYSIS REFLEX MICROSCOPIC REFLEX CULTURE(Performed 01/18/2019) * HEMOGLOBIN A1C(Performed 01/11/2019) * LIPID PROFILE(Performed 01/11/2019) * BASIC METABOLIC PANEL (CALCIUM TOTAL)(Performed 01/10/2019) * CT HEAD WO CONTRAST(Performed 01/09/2019) Performed for Hallucinations, Acute psychosis (HCC) * URINE MICROSCOPIC ONLY REFLEX TO CULTURE(Performed 01/08/2019) * URINALYSIS REFLEX MICROSCOPIC REFLEX CULTURE(Performed 01/08/2019) * DRUG ABUSE URINE SCREEN 10(Performed 01/08/2019) * CULTURE URINE(Performed 01/08/2019) * TSH(Performed 01/08/2019) * SALICYLATE LEVEL BLOOD(Performed 01/08/2019) * COMPREHENSIVE METABOLIC PANEL(Performed 01/08/2019) * CBC W AUTO DIFFERENTIAL(Performed 01/08/2019) * ALCOHOL ETHYL BLOOD(Performed 01/08/2019) * ACETAMINOPHEN LEVEL(Performed 01/08/2019) * XR KNEE LEFT 3VW(Performed 02/13/2017) Performed for Pain * XR CHEST 2VW(Performed 12/26/2016) Performed for Injury Results * XR KNEE RIGHT 4VW OR MORE (04/20/2023 1:47 PM CDT) Only the most recent of2 resultswithin the time period is included. Anatomical Region Laterality Modality Lower Extremity Radiographic Chelsea ging 04/22/2023 10:1 4 PM CDT Impressions 04/22/2023 10:14 PM CDT Mild tricompartmental right knee osteoarthritis. THIS IS AN ELECTRONICALLY VERIFIED FINAL REPORT 04/22/2023 10:14 PM - Electronically signed by Ken Donovan M.D. MF: [email or web address] Report ID: [id number] Reading Location: [id number] Narrative 04/22/2023 10:14 [place] [address] RADIOLOGY REPORT Patient Name: JOANIE GALAN Date of Service:04/20/2023 Date of :1955 Age:67 Sex:F Requesting PhysicianJEAN MAY Examination:XR KNEE RIGHT 4VW OR MORE EXAM DESCRIPTION: XR KNEE RIGHT 4VW OR MORE REASON FOR STUDY: lateral right knee pain, pt fell a few months ago Duration: . FINDINGS: Four views submitted with comparison 03/09/2023. No acute fractures are identified. There is mild tricompartmental right knee osteoarthritis. There is no effusion. Distal femoral low-grade chondroid lesion is present. Procedure Note Ken Donovan MD - 04/22/2023 [facility] [address] [place] [address] RADIOLOGY REPORT Patient Name: JOANIE GALAN Date of Service:04/20/2023 Date of :1955 Age:67 Sex:F Requesting PhysicianJEAN MAY Examination:XR KNEE RIGHT 4VW OR MORE EXAM DESCRIPTION: XR KNEE RIGHT 4VW OR MORE REASON FOR STUDY: lateral right knee pain, pt fell a few months ago Duration: . FINDINGS: Four views submitted with comparison 03/09/2023. No acute fractures are identified. There is mild tricompartmental right knee osteoarthritis. There is no effusion. Distal femoral low-grade chondroid lesion is present. IMPRESSION Mild tricompartmental right knee osteoarthritis. THIS IS AN ELECTRONICALLY VERIFIED FINAL REPORT 04/22/2023 10:14 PM - Electronically signed by Ken Donovan M.D. MF: KANDICE Report ID: [id number] Reading Location: [id number] Suman Jones MD DIAGNOSTIC IMAGING O RDERABLES * XR KNEE LEFT 3VW (03/09/2023 10:18 AM CDT) Only the most recent of4 resultswithin the time period is included. Anatomical Region Laterality Modality Lower Extremity Radiographic Chelsea ging 03/11/2023 10:0 4 AM CDT Impressions 03/11/2023 10:10 AM CDT Mild tricompartmental right knee osteoarthritis. Left total knee arthroplasty in near anatomic alignment with a small to moderate-sized effusion. THIS IS AN ELECTRONICALLY VERIFIED FINAL REPORT 03/11/2023 10:10 AM - Electronically signed by Ken Donovan M.D. MF: KANDICE Report ID: [id number] Reading Location: [id number] Narrative 03/11/2023 10:10 [place] [address] RADIOLOGY REPORT Patient Name: JOANIE GALAN Date of Service:03/09/2023 Date of :1955 Age:67 Sex:F Requesting PhysicianJEAN MAY Examination:XR KNEE LEFT 3VW EXAM DESCRIPTION: XR KNEE LEFT 3VW; XR KNEE RIGHT 4VW OR MORE REASON FOR STUDY: Patient had left knee replacement in March 2022. She fell 03/02/23 and landed on right knee. She has still been having pain. Knee osteoarthritis. FINDINGS: Three views left knee and four views right knee submitted with comparison 10/20/2022. Right knee: There is mild tricompartmental right knee osteoarthritis. There are no fractures. Alignment is normal. There is no effusion. Distal femoral low-grade chondroid lesion or bone infarct is noted. Left knee: There are no fractures. Alignment is normal. Left total knee arthroplasty is in place. Small to moderate-sized knee effusion is present. Procedure Note Ken Donovan MD - 03/11/2023 [place] [address] RADIOLOGY REPORT Patient Name: JOANIE GALAN Date of Service:03/09/2023 Date of :1955 Age:67 Sex:F Requesting PhysicianJEAN MAY Examination:XR KNEE LEFT 3VW EXAM DESCRIPTION: XR KNEE LEFT 3VW; XR KNEE RIGHT 4VW OR MORE REASON FOR STUDY: Patient had left knee replacement in March 2022. She fell 03/02/23 and landed on right knee. She has still been having pain. Knee osteoarthritis. FINDINGS: Three views left knee and four views right knee submitted with comparison 10/20/2022. Right knee: There is mild tricompartmental right knee osteoarthritis. There are no fractures. Alignment is normal. There is no effusion. Distal femoral low-grade chondroid lesion or bone infarct is noted. Left knee: There are no fractures. Alignment is normal. Left total knee arthroplasty is in place. Small to moderate-sized knee effusion is present. IMPRESSION Mild tricompartmental right knee osteoarthritis. Left total knee arthroplasty in near anatomic alignment with a small to moderate-sized effusion. THIS IS AN ELECTRONICALLY VERIFIED FINAL REPORT 03/11/2023 10:10 AM - Electronically signed by Ken Donovan M.D. MF: KANDICE Report ID: [id number] Reading Location: [place] [address] Suman Jones MD DIAGNOSTIC IMAGING O RDERABLES * CARDIAC RHYTHM STRIP ORDER (03/28/2022 10:10 AM CDT) Only the most recent of2 resultswithin the time period is included. Narrative 03/28/2022 10:10 AM CDT Ordered by an unspecified provider. Scanned Document CARDIAC SERVICES ORD ERABLES * SARS-COV-2 (COVID-19) RAPID (03/25/2022 11:12 AM CDT) COVID-19 PCR Not detected Not detected, Invalid 03/25/2022 12:00 PM CDT [facility] Microbiology SPECIMEN FROM NASOPHARYNGEAL STRUCTURE / Unknown Collection / Unknown 03/25/2022 11:12 AM CDT 03/25/2022 11:18 AM CDT Narrative AM LABORATORY - 03/25/2022 12:00 PM CDT The [employer] Search Xpert Xpress SARS-COV-2 has been authorized by the Food and Drug administration (FDA) under an Emergency Use Authorization (EUA). This test has been validated in accordance with the FDA's guidance document Policy for Diagnostic Testing in Laboratories Certified to perform High Complexity Testing under CLIA prior to Emergency Use Authorization for Coronavirus Disease-2019 during the Public Health Emergency issued on January 10, 2020. FDA independent review of this validation is pending. This test is only authorized for the duration of time the declaration that circumstances exist justifying the authorization of emergency use of in vitro diagnostic tests for detection of SARS-COV-2 virus and/or diagnosis of COVID-19 infection under 564(b)(1)of the Act, 21 U.S.C. 360bbb-3 (b) (1), unless the authorization is terminated or revoked sooner. Juan Alberto Mccormick MD LAB - MICROBIO LOGY ORDERABLES Performing Organization Address City/State/[facility] Co de Phone Number [facility] [address] * (ABNORMAL) CBC W AUTO DIFFERENTIAL (03/25/2022 6:25 AM CDT) Only the most recent of10 resultswithin the time period is included. WBC 6.6 4.0 - 10.0 x10E9/L 03/25/2022 6:43 AM CDT [facility] RBC 3.34(L) 3.93 - 5.22 x10E12/L 03/25/2022 6:43 AM CDT [facility] Hemoglobin 10.4(L) 11.2 - 15.7 gm/dL 03/25/2022 6:43 AM CDT [facility] Hematocrit 31.7(L) 34.1 - 44.9 % 03/25/2022 6:43 AM CDT [facility] MCV 94.9 78.0 - 100.0 fl 03/25/2022 6:43 AM CDT [facility] MCH 31.1 25.6 - 34.0 pg 03/25/2022 6:43 AM CDT [facility] MCHC 32.8 32.3 - 36.5 gm/dL 03/25/2022 6:43 AM CDT [facility] RDW 13.2 11.6 - 14.4 % 03/25/2022 6:43 AM CDT [facility] MPV 10.6 9.4 - 12.4 fl 03/25/2022 6:43 AM CDT [facility] Platelet Count 210 163 - 369 x10E9/L 03/25/2022 6:43 AM CDT [facility] Neutrophils % 65.3 40.0 - 75.0 % 03/25/2022 6:43 AM CDT [facility] Lymphocytes % 22.9 19.3 - 53.1 % 03/25/2022 6:43 AM CDT [facility] Monocytes % 8.1 4.7 - 12.5 % 03/25/2022 6:43 AM CDT [facility] Eosinophils % 3.3 0.7 - 7.0 % 03/25/2022 6:43 AM CDT [facility] Basophils % 0.2 0.1 - 1.2 % 03/25/2022 6:43 AM T [facility] Immature Granulocytes 0.2 0 - 0.5 % 03/25/2022 6:43 AM CDT [facility] Neutrophil Absolute 4.33 1.56 - 6.13 x10E9/L 03/25/2022 6:43 AM CDT [facility] Lymphocytes Absolute 1.52 1.18 - 3.74 x10E9/L 03/25/2022 6:43 AM CDT [facility] Monocytes Absolute 0.54 0.24 - 0.86 x10E9/L 03/25/2022 6:43 AM CDT [facility] Eosinophils Absolute 0.22 0.04 - 0.54 x10E9/L 03/25/2022 6:43 AM CDT [facility] Basophils Absolute 0.01 0.01 - 0.08 x10E9/L 03/25/2022 6:43 AM T [facility] Immature Granulocytes Absolute 0.01 0 - 0.03 x10E9/L 03/25/2022 6:43 AM CDT [facility] nRBC Auto 0 <=0 /100 WBC 03/25/2022 6:43 AM CDT [facility] nRBC Absolute 0.00 <=0 x10E9/L 03/25/2022 6:43 AM CDT [facility] Blood BLOOD SPECIMEN / Unknown Lab Venipuncture / Unknown 03/25/2022 6:25 AM CDT 03/25/2022 6:38 AM CDT Suman Jones MD LAB - HEMATOLOGY ORD ERABLES [facility] [address] [place] [address], [facility] * (ABNORMAL) RENAL FUNCTION PANEL (03/25/2022 6:25 AM CDT) Only the most recent of2 resultswithin the time period is included. Glucose 99 70 - 125 mg/dL 03/25/2022 7:00 AM CDT [facility] Sodium 136 136 - 145 mmol/L 03/25/2022 7:00 AM CDT [facility] Potassium 5.5(H) 3.4 - 5.1 mmol/L 03/25/2022 7:00 AM CDT [facility] Chloride 104 98 - 107 mmol/L 03/25/2022 7:00 AM CDT [facility] CO2 23 22 - 29 mmol/L 03/25/2022 7:00 AM CDT [facility] Calcium 8.66 8.4 - 10.2 mg/dL 03/25/2022 7:00 AM CDT [facility] Anion Gap 15 10 - 20 mmol/L 03/25/2022 7:00 AM CDT [facility] BUN 28.0(H) 9.8 - 20.1 mg/dL 03/25/2022 7:00 AM CDT [facility] Creatinine 1.12(H) 0.57 - 1.11 mg/dL 03/25/2022 7:00 AM CDT [facility] Albumin 2.9(L) 3.5 - 5.0 gm/dL 03/25/2022 7:00 AM CDT [facility] Phosphorus 3.06 2.3 - 4.7 mg/dL 03/25/2022 7:00 AM CDT [facility] eGFR by MDRD 49(L) >60 mL/min/1.7 3m2 03/25/2022 7:00 AM CDT [facility] eGFR by MDRD 59(L) >60 mL/min/1.7 3m2 03/25/2022 7:00 AM CDT [facility] Blood BLOOD SPECIMEN / Unknown Lab Venipuncture / Unknown 03/25/2022 6:25 AM CDT 03/25/2022 6:38 AM CDT Juan Alberto Mccormick MD LAB - CHEMISTR Y ORDERABLES [facility] 1 [place], [place] [id number] [place] [address] * (ABNORMAL) COMPREHENSIVE METABOLIC PANEL (03/24/2022 4:44 AM CDT) Only the most recent of10 resultswithin the time period is included. Glucose 106 70 - 125 mg/dL 03/24/2022 5:25 AM CDT [facility] Sodium 135(L) 136 - 145 mmol/L 03/24/2022 5:25 AM CDT [facility] Potassium 5.0 3.4 - 5.1 mmol/L 03/24/2022 5:25 AM CDT [facility] Chloride 105 98 - 107 mmol/L 03/24/2022 5:25 AM CDT [facility] CO2 23 22 - 29 mmol/L 03/24/2022 5:25 AM CDT [facility] Calcium 8.35(L) 8.4 - 10.2 mg/dL 03/24/2022 5:25 AM CDT [facility] Anion Gap 12 10 - 20 mmol/L 03/24/2022 5:25 AM CDT [facility] BUN 33.8(H) 9.8 - 20.1 mg/dL 03/24/2022 5:25 AM CDT [facility] Creatinine 1.29(H) 0.57 - 1.11 mg/dL 03/24/2022 5:25 AM CDT [facility] eGFR by MDRD 41(L) >60 mL/min/1.7 3m2 03/24/2022 5:25 AM CDT [facility] eGFR by MDRD 50(L) >60 mL/min/1.7 3m2 03/24/2022 5:25 AM CDT [facility] Alkaline Phosphatase 101 40 - 150 U/L 03/24/2022 5:25 AM CDT [facility] ALT 8 5 - 55 U/L 03/24/2022 5:25 AM CDT [facility] AST 13 5 - 34 U/L 03/24/2022 5:25 AM CDT [facility] Protein Total 5.9(L) 6.4 - 8.3 gm/dL 03/24/2022 5:25 AM CDT [facility] Albumin 3.0(L) 3.5 - 5.0 gm/dL 03/24/2022 5:25 AM CDT [facility] Globulin Total 2.9 2.6 - 4.0 gm/dL 03/24/2022 5:25 AM CDT [facility] Albumin/Globulin Ratio 1.0 0.9 - 1.6 03/24/2022 5:25 AM CDT [facility] Bilirubin Total 0.5 0.2 - 1.2 mg/dL 03/24/2022 5:25 AM CDT [facility] Blood BLOOD SPECIMEN / Unknown Lab Venipuncture / Unknown 03/24/2022 4:44 AM CDT 03/24/2022 5:00 AM CDT Akila Mack MD LAB - CHEMISTRY ORDERABLES [facility] [address] * (ABNORMAL) BASIC METABOLIC PANEL (CALCIUM TOTAL) (03/23/2022 2:17 AM CDT) Only the most recent of3 resultswithin the time period is included. Glucose 112 70 - 125 mg/dL 03/23/2022 3:22 AM CDT [facility] Sodium 137 136 - 145 mmol/L 03/23/2022 3:22 AM CDT [facility] Potassium 4.3 3.4 - 5.1 mmol/L 03/23/2022 3:22 AM CDT [facility] Chloride 110(H) 98 - 107 mmol/L 03/23/2022 3:22 AM CDT [facility] CO2 17(L) 22 - 29 mmol/L 03/23/2022 3:22 AM CDT [facility] Calcium 7.77(L) 8.4 - 10.2 mg/dL 03/23/2022 3:22 AM CDT [facility] Anion Gap 14 10 - 20 mmol/L 03/23/2022 3:22 AM CDT [facility] BUN 25.5(H) 9.8 - 20.1 mg/dL 03/23/2022 3:22 AM CDT [facility] Creatinine 1.07 0.57 - 1.11 mg/dL 03/23/2022 3:22 AM CDT [facility] eGFR by MDRD 51(L) >60 mL/min/1.7 3m2 03/23/2022 3:22 AM CDT [facility] eGFR by MDRD >60 >60 mL/min/1.7 3m2 03/23/2022 3:22 AM CDT [facility] Blood BLOOD SPECIMEN / Unknown Lab Venipuncture / Unknown 03/23/2022 2:17 AM CDT 03/23/2022 2:58 AM CDT Suman Jones MD LAB - CHEMISTRY [facility] Organization Address City/State/ZIP Co de Phone Number [facility] [address] * XR KNEE 1 OR 2 VW LEFT (03/22/2022 9:40 AM CDT) Anatomical Region Laterality Modality Lower Extremity Radiographic Chelsea ging 03/22/2022 10:1 4 AM CDT Impressions 03/22/2022 10:14 AM CDT IMPRESSION: Left knee prosthesis > Interpreting Provider: Brady Rebolledo MD on 03/22/2022 10:14 AM Narrative 03/22/2022 10:14 AM CDT PROCEDURE: XR KNEE LEFT 2VW OR LESS, DATE/TIME OF EXAM: 03/22/2022 9:56 AM, LOCATION [facility] INDICATION: Z96.652: Presence of left artificial knee joint Left knee pain : COMPARISON: 08/24/2020 FINDINGS: 2 views of the left knee compared to prior 08/24/2020 shows left knee prosthesis in appropriate alignment. Surgical clips are seen anteriorly. There is no acute fracture or hardware complication. Procedure Note Brady Rebolledo MD - 03/22/2022 PROCEDURE: XR KNEE LEFT 2VW OR LESS, DATE/TIME OF EXAM: 03/22/2022 9:56 AM, LOCATION [facility] INDICATION: Z96.652: Presence of left artificial knee joint Left knee pain : COMPARISON: 08/24/2020 FINDINGS: 2 views of the left knee compared to prior 08/24/2020 shows left knee prosthesis in appropriate alignment. Surgical clips are seen anteriorly. There is no acute fracture or hardware complication. IMPRESSION: Left knee prosthesis > Interpreting Provider: Brady Rebolledo MD on 03/22/2022 10:14 AM Suman Jones MD DIAGNOSTIC IMAGING O RDERABLES * GROSS + MICRO EXAM (ILL) (03/22/2022 8:01 AM CDT) Case Report Surgical Pathology Report Case: [id number] Authorizing Provider: Suman Jones MD Collected: 03/22/2022 08:01 AM Ordering Location: [facility] Received: 03/22/2022 11:26 AM Pathologist: Nick Whitman MD Specimen: Bone Knee, left tissue and bone from total knee arthroplasty 03/24/2022 4:18 PM CDT [facility] Final Diagnosis Bone And Tissue, Left Knee, Left Total Knee Arthroplasty: - Advanced osteoarthritis. 03/24/2022 4:18 PM CDT [facility] Microscopic Description and Comment Microscopic examination is performed and substantiates the above diagnosis. 03/24/2022 4:18 PM CDT AM LAB[facility]ATORY Clinical History Diagnosis Code(s): Primary osteoarthritis of left knee [M17.12] S/P Left total knee arthroplasty 03/24/2022 4:18 PM CDT AM [facility]AT[facility] Gross Description The requisition and specimen(s) are identified with the patient's name, Joanie Galan, left knee tissue and bone from left total knee arthroplasty. Received in formalin, specimen A , are multiple portions of roth-white bone 0.7-7 6 cm in greatest dimension, aggregating 14.4 x 10.9 x 1.6 cm with scant attached pink-roth soft tissue. The bone articular surfaces demonstrate moderate roughening and minimal eburnation. The bone cut surface is roth-white and trabeculated. Lockstitch Binder sections are submitted in cassete A1 post decalcification. AW 03/24/2022 4:18 PM CDT [facility] Disclaimer The performance characteristics of all immunohistochemical and indirect immunofluorescence stains (if any) cited in this report were determined by the Histopathology Laboratory of [facility]. Some of these tests were developed by our own laboratory and have not been cleared or approved by the US Food and Drug Administration. The FDA does not require this test to go through premarket FDA review. These tests are used for clinical purposes. They should not be regarded as investigational or for research. This laboratory is certified under the Clinical Laboratory Improvement Amendments (CLIA) as qualified to perform high complexity clinical laboratory testing. This case was interpreted by the [facility] Department of Pathology. When applicable, select reference laboratory testing is performed at the [facility] Pathology Independent [facility], [address] [place] [address]. 03/24/2022 4:18 PM CDT [facility] Embedded Images 03/24/2022 4:18 PM CDT [facility] Pathology/Cytology BONE STRUCTURE OF KNEE JOINT REGION / Unknown 03/22/2022 8:01 AM CDT 03/22/2022 11:26 AM CDT Comment:Pre-op diagnosis: Primary osteoarthritis of left knee [M17.12] Suman Jones MD LAB - PATHOLOGY/CYTO LOGY ORDERABLES Performing Organization Address [facility]/State/[facility] de Phone Number [facility] [address] LABORATORY [address] [place], [place] [id number] [place] [address] * Neuraxial Block (03/22/2022 7:52 AM CDT) Narrative Josh Loera MD - 03/22/2022 7:52 AM CDT Dakotah Lopez APRN-TANISHA 03/22/2022 7:55 AM Neuraxial Block Note Pre-Procedure: Procedure Name: Neuraxial Block Patient Location: OR Indications: surgical anesthesia Pre-Anesthetic Checklist: Patient identified, IV Checked, Risks and benefits discussed, Surgical consent verified, Monitors and equipment, Site examined, Pre-op evaluation done, Time-out performed, Informed consent obtained, Questions answered/anesthesia questions answered and Allergies reviewed Anticoagulation/ Anti-thrombosis status confirmed? Yes Monitors: BP and continuous pluse ox Patient Condition: awake Patient Sedated? No Procedure: Block Type: Spinal Prep: Betadine Sterile Field: mask, cap/hat, sterile established and sterile gloves Approach: midline Skin was localized? Yes Skin localized with: lidocaine PF (Xylocaine MPF) 1 % injection 0.2 mL - Infiltration, Back 2 mL - 03/22/2022 7:28:00 AM Spinal Block: Needle Type: spinal needle Needle Gauge: 25 Needle Length: 90 mm Placement Site: L2-3 Number of Attempts: 1 CSF: free flow, aspiration before injection Local anesthetics used? Yes Spinal local anesthetics/Additives: bupivacaine 0.75 % in dextrose (SENSORCAINE) injection - Intraspinal 11.5 mg - 03/22/2022 7:28:00 AM Degree of difficulty: none Procedure Tolerance: tolerated well Sensory Level: T8 Motor Blockade: Yes Position post procedure: supine Vital Signs: Vital signs monitored and stable throughout. See anesthesia record for details. Start Time: 03/22/2022 7:25 AM End Time: 03/22/2022 7:28 AM Total Time: 3 Staff: Anesthesia Provider: Dakotah Lopez APRN-COMMUNITY HEALTH NURSE SUPERVISOR - performed the procedure Josh Loera MD GENERAL ANESTHESIA ORDERABLES * BLOOD TYPE VERIFICATION (03/22/2022 6:30 AM CDT) Pathologist [facility] ABO Rh O NEG 03/22/2022 8:3 3 AM CDT [facility] Blood Bank BLOOD SPECIMEN / Unknown Lab Venipuncture / Unknown 03/22/2022 6:30 AM CDT 03/22/2022 7:14 AM CDT Suman Jones MD LAB - BLOOD BANK ORD ERABLES [facility] 1 [place], [place] [address] * (ABNORMAL) MRSA + SA DNA PCR PANEL (03/15/2022 2:09 PM CDT) Pathologist [facility] MRSA DNA by PCR Positive(A ) Negative 03/15/2022 3:41 PM CDT [facility] Staph aureus PCR Positive(A ) Negative 03/15/2022 3:41 PM CDT [facility] Microbiology SPECIMEN FROM NASAL FOSSAE / Unknown Collection / Unknown 03/15/2022 2:09 PM CDT 03/15/2022 2:15 PM CDT Narrative [facility] - 03/15/2022 3:41 PM CDT Methicillin-resistant Staphylococcus aureus (MRSA) target DNA detected; Staphylococcus aureus (SA) target DNA detected. A positive test does not necessarily indicate the presence of viable organisms. It is however, presumptive for the presence of MRSA or SA. Suman Jones MD LAB - MICROBIOLOGY O RDERABLES [facility] 1 [place] [address], [facility] * URINALYSIS REFLEX MICROSCOPIC REFLEX CULTURE (03/15/2022 2:09 PM CDT) Only the most recent of3 resultswithin the time period is included. Color UA Yellow Straw, Yellow 03/15/2022 2:31 PM CDT [facility] Clarity UA Clear Clear 03/15/2022 2:31 PM CDT [facility] Glucose UA Negative Negative 03/15/2022 2:31 PM CDT [facility] Bilirubin UA Negative Negative 03/15/2022 2:31 PM CDT [facility] Ketone UA Negative Negative 03/15/2022 2:31 PM CDT [facility] Specific [place] UA 1.013 1.005 - 1.030 03/15/2022 2:31 PM CDT [facility] Blood UA Negative Negative 03/15/2022 2:31 PM CDT [facility] pH UA 7.0 5.0 - 8.0 pH 03/15/2022 2:31 PM CDT [facility] Protein UA Negative Negative 03/15/2022 2:31 PM CDT [facility] Urobilinogen UA Negative Negative mg/dL 03/15/2022 2:31 PM CDT [facility] Nitrite UA Negative Negative 03/15/2022 2:31 PM CDT [facility] Leukocyte UA Negative Negative 03/15/2022 2:31 PM CDT [facility] Urine Microscopy Urine microscopy not indicated 03/15/2022 2:31 PM CDT [facility] Reflex Status Culture not indicated 03/15/2022 2:31 PM CDT [facility] Urine URINE SPECIMEN OBTAINED BY CLEAN CATCH PROCEDURE / Unknown Collection / Unknown 03/15/2022 2:09 PM CDT 03/15/2022 2:16 PM CDT Narrative [facility] - 03/15/2022 2:31 PM CDT Ascorbic Acid can cause false negative urine strip tests for blood, glucose, nitrite, and bilirubin. Suman Jones MD LAB - URINALYSIS ORD ERABLES Performing Organization Address [facility]/ZIP Co de Phone Number [facility] [address] * TYPE + SCREEN PANEL (03/15/2022 2:09 PM CDT) ABO Rh O NEG 03/15/2022 3:28 PM CDT [facility] Antibody Screen NEG 3:28 PM CDT [facility] Blood Bank BLOOD SPECIMEN / Unknown Venipuncture / Unknown 03/15/2022 2:09 PM CDT 03/15/2022 2:16 PM CDT Suman Jones MD LAB - BLOOD BANK ORD ERABLES Performing Organization Address [facility] Co de Phone Number [facility] [address] * PHOSPHORUS BLOOD (02/21/2022 4:44 PM CDT) Only the most recent of5 resultswithin the time period is included. Phosphorus 3.7 2.3 - 4.7 mg/dL 02/21/2022 5:16 PM CDT [facility] Blood BLOOD SPECIMEN / Unknown Lab Venipuncture / Unknown 02/21/2022 4:44 PM CDT 02/21/2022 4:49 PM CDT Araceli Griggs APRN-[employer] LAB - CHEMISTRY OR DERABLES Performing Organization Address City/[facility]/ZIP Co de Phone Number [facility] [address] * MAGNESIUM BLOOD (02/21/2022 4:44 PM CDT) Only the most recent of5 resultswithin the time period is included. Magnesium 1.9 1.6 - 2.6 mg/dL 02/21/2022 5:16 PM CDT [facility] Blood BLOOD SPECIMEN / Unknown Lab Venipuncture / Unknown 02/21/2022 4:44 PM CDT 02/21/2022 4:49 PM CDT Araceli Indu [facility] LAB - CHEMISTRY OR DERABLES Performing Organization Address [facility] de Phone Number [facility] [address] * ALKALINE PHOSPHATASE BLOOD BONE SPECIFIC (12/22/2021 2:47 PM COMPENSATOR WORKER) Only the most recent of2 resultswithin the time period is included. Alkaline Phosphatase Bone Specific 14.8 ug/L 12/27/2021 2:40 PM COMPENSATOR WORKER [employer] ([facility]) Comment: INTERPRETIVE INFORMATION: Bone Specific Alkaline Phosphatase Premenopausal Female: 4.5 - 16.9 ug/L Postmenopausal Female: 7.0 - 22.4 ug/L INTERPRETIVE INFORMATION: Bone Specific Alkaline Phosphatase Liver alkaline phosphatase can affect the measurement of bone specific alkaline phosphatase in this assay. Each 100 U/L of liver alkaline phosphatase contributes an additional 2.5 to 5.8 ug/L to the bone specific alkaline phosphatase result. Performed By: [employer] [address] [place] [address] [employer] Inspector: Yana Escamilla MD Blood BLOOD SPECIMEN / Unknown Lab Venipuncture / Unknown 12/22/2021 2:47 PM COMPENSATOR WORKER 12/22/2021 3:06 PM COMPENSATOR WORKER Araceli Indu [facility] - CHEMISTRY OR DERABLES Performing Organization Address [facility] Co de Phone Number [employer] [facility]) [address] [place] [address] * PTH INTACT (12/22/2021 2:47 PM COMPENSATOR WORKER) Only the most recent of2 resultswithin the time period is included. PTH Intact 51.2 15.0 - 103.3 pg/mL 12/22/2021 6:16 PM COMPENSATOR WORKER [facility] Blood BLOOD SPECIMEN / Unknown Lab Venipuncture / Unknown 12/22/2021 2:47 PM COMPENSATOR WORKER 12/22/2021 3:18 PM COMPENSATOR WORKER Araceli Griggs [facility] LAB - CHEMISTRY OR DERABLES [facility] [address] * VITAMIN D 25-HYDROXY (performed in house) (12/22/2021 2:47 PM COMPENSATOR WORKER) Only the most recent of4 resultswithin the time period is included. Vitamin D, 25 Hydroxy 36.1 30 - 100 ng/mL 12/22/2021 3:46 PM COMPENSATOR WORKER [facility] Blood BLOOD SPECIMEN / Unknown Lab Venipuncture / Unknown 12/22/2021 2:47 PM COMPENSATOR WORKER 12/22/2021 3:06 PM COMPENSATOR WORKER Narrative [facility] - 12/22/2021 3:46 PM COMPENSATOR WORKER Reference Values: The recommendation for 25-Hydroxy Vitamin D clinical decision points are as follows: Deficient < 20.0 ng/mL Insufficient 20.0-29.9 ng/mL Sufficient >= 30.0 ng/mL Reference: The Endocrine Society Clinical Practice Guidelines. 2011 If the 25-Hydroxy Vitamin D results are inconsistent with clinical evidence, it is recommended that follow-up testing using a method such as LC-MS/MS be performed to confirm the result. Araceli Griggs [facility] LAB - CHEMISTRY OR DERABLES [facility] [address] * CALCIUM IONIZED BLOOD (12/22/2021 2:47 PM COMPENSATOR WORKER) Only the most recent of2 resultswithin the time period is included. Calcium Ionized 1.21 1.15 - 1.32 mmol/L 12/22/2021 3:13 PM COMPENSATOR WORKER [facility] pH 7.35 7.32 - 7.42 pH 12/22/2021 3:13 PM COMPENSATOR WORKER [facility] Blood BLOOD SPECIMEN / Unknown Lab Venipuncture / Unknown 12/22/2021 2:47 PM COMPENSATOR WORKER 12/22/2021 3:06 PM COMPENSATOR WORKER Araceli Griggs [employer]ER-[employer] LAB - CHEMISTRY OR DERABLES [facility] [address] * XR CHEST 2 VWS PA AND LAT [id number] (11/15/2021 2:28 PM COMPENSATOR WORKER) Only the most recent of3 resultswithin the time period is included. Anatomical Region Laterality Modality Chest Radiographic Chelsea ging 11/15/2021 2:31 PM COMPENSATOR WORKER Narrative 11/15/2021 2:31 PM COMPENSATOR WORKER PROCEDURE: XR CHEST 2VW 11/15/2021 2:31 PM FINDINGS AND IMPRESSION: HISTORY: Cough, unspecified. COMPARISON: 05/20/2021. No focal consolidation or pleural effusion Unremarkable cardiac size Atherosclerotic aorta Pulmonary vascularity is within normal limits No pneumothorax Scattered fibrosis DJD spine and shoulders. Osteopenia. Chronic changes No acute process. *Reading Radiologist: Lisa Shultz on 11/15/2021 at 2:31 PM Procedure Note Lisa Shultz MD - 11/15/2021 PROCEDURE: XR CHEST 2VW 11/15/2021 2:31 PM FINDINGS AND IMPRESSION: HISTORY: Cough, unspecified. COMPARISON: 05/20/2021. No focal consolidation or pleural effusion Unremarkable cardiac size Atherosclerotic aorta Pulmonary vascularity is within normal limits No pneumothorax Scattered fibrosis DJD spine and shoulders. Osteopenia. Chronic changes No acute process. *Reading Radiologist: Lisa Shultz on 11/15/2021 at 2:31 PM Bola Carrillo MD DIAGNOSTIC IMAGING O RDERABLES * CALCIUM BLOOD (11/15/2021 2:21 PM COMPENSATOR WORKER) Only the most recent of4 resultswithin the time period is included. Calcium 9.0 8.4 - 10.2 mg/dL 11/15/2021 3:35 PM COMPENSATOR WORKER [facility] Blood BLOOD SPECIMEN / Unknown Lab Venipuncture / Unknown 11/15/2021 2:21 PM COMPENSATOR WORKER 11/15/2021 3:14 PM COMPENSATOR WORKER Araceli Griggs [employer]ER-[employer] LAB - CHEMISTRY OR DERABLES [facility] [address] * XR RIBS UNILATERAL 2 VW RIGHT [id number] (05/20/2021 5:45 PM CDT) Anatomical Region Laterality Modality Chest Radiographic Chelsea ging 05/20/2021 5:55 PM CDT Impressions 05/20/2021 5:59 PM CDT Old Fracture of right seventh and eighth rib. *Reading Radiologist: OMI MOORE on 05/20/2021 at 5:59 PM Narrative 05/20/2021 5:59 PM CDT XR RIBS RIGHT 2VW Ordering provider: HENRRY FIORE History: . Unspecified fall, initial encounter. Comparison: November 13, 2019 FINDINGS: BONES: Old Fracture of the right seventh and eighth rib is noted posteriorly unchanged from previous examination. No definite acute fractures seen. Degenerative changes of the spine with dextroscoliosis. LUNGS: No effusions or infiltrates. No pneumothorax. SOFT TISSUES: Normal. Procedure Note Omi Moore MD - 05/20/2021 XR RIBS RIGHT 2VW Ordering provider: HENRRY FIORE History: . Unspecified fall, initial encounter. Comparison: November 13, 2019 FINDINGS: BONES: Old Fracture of the right seventh and eighth rib is noted posteriorly unchanged from previous examination. No definite acute fractures seen. Degenerative changes of the spine with dextroscoliosis. LUNGS: No effusions or infiltrates. No pneumothorax. SOFT TISSUES: Normal. IMPRESSION Old Fracture of right seventh and eighth rib. *Reading Radiologist: OMI MOORE on 05/20/2021 at 5:59 PM Henrry Fiore MD DIAGNOSTIC IMAGING O RDERABLES * XR ELBOW 3+ VW LEFT [id number] (05/20/2021 5:45 PM CDT) Anatomical Region Laterality Modality Upper Extremity Radiographic Chelsea ging 05/20/2021 5:53 PM CDT Narrative 05/20/2021 5:54 PM CDT XR ELBOW LEFT 3VW OR MORE Ordering provider: HENRRY FIORE History: . Unspecified fall, initial encounter. Comparison: None. FINDINGS: BONES: Fracture of the radial head is noted. No other fractures seen.. JOINT SPACES: Normal. SOFT TISSUES: Elevation of the anterior fat pad is seen. IMPRESSION: Fracture of the radial head. *Reading Radiologist: OMI MOORE on 05/20/2021 at 5:54 PM Procedure Note Omi Moore MD - 05/20/2021 XR ELBOW LEFT 3VW OR MORE Ordering provider: HENRRY FIORE History: . Unspecified fall, initial encounter. Comparison: None. FINDINGS: BONES: Fracture of the radial head is noted. No other fractures seen.. JOINT SPACES: Normal. SOFT TISSUES: Elevation of the anterior fat pad is seen. IMPRESSION: Fracture of the radial head. *Reading Radiologist: OMI MOORE on 05/20/2021 at 5:54 PM Henrry Fiore MD DIAGNOSTIC IMAGING O RDERABLES * XR WRIST 3+ VW RIGHT [id number] (05/20/2021 5:44 PM CDT) Anatomical Region Laterality Modality Wrist / Hand Radiographic Chelsea ging 05/20/2021 5:52 PM CDT Impressions 05/20/2021 5:53 PM CDT No acute osseous abnormality right wrist. *Reading Radiologist: OMI MOORE on 05/20/2021 at 5:53 PM Narrative 05/20/2021 5:53 PM CDT XR WRIST RIGHT 3VW OR MORE Ordering provider: HENRRY FIORE History: . Unspecified fall, initial encounter. Comparison: None. FINDINGS: BONES: No acute fracture or dislocation. No definite scaphoid fracture. JOINT SPACES: Normal. SOFT TISSUES: Normal. Procedure Note Omi Moore MD - 05/20/2021 XR WRIST RIGHT 3VW OR MORE Ordering provider: HENRRY FIORE History: . Unspecified fall, initial encounter. Comparison: None. FINDINGS: BONES: No acute fracture or dislocation. No definite scaphoid fracture. JOINT SPACES: Normal. SOFT TISSUES: Normal. IMPRESSION No acute osseous abnormality right wrist. *Reading Radiologist: OMI MOORE on 05/20/2021 at 5:53 PM Henrry Fiore MD DIAGNOSTIC IMAGING O RDERABLES * (ABNORMAL) LIPID PROFILE (11/24/2020 11:51 AM [facility]) Only the most recent of4 resultswithin the time period is included. Cholesterol 216(H) <200 mg/dL 11/24/2020 1:19 PM [facility] Triglycerides 129 <150 mg/dL 11/24/2020 1:19 PM [facility] HDL Cholesterol 55 >40 mg/dL 1 1:19 PM [facility] Chol HDL Ratio 3.9 1.0 - 6.0 11/24/2020 1:19 PM [facility] LDL Calculated 135(H) 65 - 130 mg/dL 11/24/2020 1:19 PM [facility] VLDL Calculated 26 <=30 mg/dL 1:19 PM [facility] [facility] Blood BLOOD SPECIMEN / Unknown Venipuncture / Unknown 11/24/2020 11:51 AM COMPENSATOR WORKER 11/24/2020 11:51 AM [facility] - 11/24/2020 1:19 PM [facility] Lipid Profile Comment: CHOLESTEROL LEVEL..................CLINICAL INTERPRETATION LESS THAN 200 MG/DL..............................DESIRABLE 200-239 MG/DL..............................BORDERLINE HIGH GREATER THAN 240 MG/DL................................HIGH LDL-CHOLESTEROL LEVEL..............CLINICAL INTERPRETATION LESS THAN 100 MG/DL................................OPTIMAL 100-129 MG/DL.................................NEAR OPTIMAL GREATER THAN 160 MG/DL...........................HIGH RISK HDL RISK LEVEL GREATER THEN 60 MG/DL............................DECREASED 40-60 MG/DL........................................AVERAGE LESS THAN 40 MG/DL...............................INCREASED TRIGLYCERIDE LEVEL..................CLINICAL INTERPRETATION LESS THAN 150 MG/DL...............................DESIRABLE 150-199 MG/DL...............................BORDERLINE HIGH 200-499 MG/DL..........................................HIGH GREATER THAN 500..................................VERY HIGH THE NATIONAL CHOLESTEROL EDUCATION PROGRAM HAS SET THE ABOVE GUIDELINES (REFERANCE VALUES) FOR CHOLESTEROL AND HDL. RISK ASSOCIATED WITH CHOLESTEROL/HDL RATIOS RISK....................MALE RATIO.............FEMALE RATIO 1/2 AVERAGE.................<3.4.......................<3.3 LOW RISK.................... 4.0 ...................... 3.8 AVERAGE..................... 5.0 ...................... 4.5 2X AVERAGE.................. 9.5 ...................... 7.0 3X AVERAGE...................>23........................>11 Bola Carrillo MD [facility] Organization Address City/State/[facility] Co de Phone Number [facility] [address] * XR KNEE LEFT 4VW OR MORE (08/24/2020 12:05 PM CDT) Anatomical Region Laterality Modality Lower Extremity Radiographic [place] ging 08/24/2020 12:2 8 PM CDT Narrative 08/24/2020 12:29 PM CDT PROCEDURE: XR KNEE LEFT 4VW OR MORE 08/24/2020 12:06 PM HISTORY: Pain in left knee. FINDINGS AND IMPRESSION: COMPARISON: No comparison. FINDINGS: Moderate to severe tricompartmental osteoarthritis without fracture. Small joint effusion Alignment anatomic Procedure Note Jeremy Morales MD - 08/24/2020 PROCEDURE: XR KNEE LEFT 4VW OR MORE 08/24/2020 12:06 PM HISTORY: Pain in left knee. FINDINGS AND IMPRESSION: COMPARISON: No comparison. FINDINGS: Moderate to severe tricompartmental osteoarthritis without fracture. Small joint effusion Alignment anatomic Bola Carrillo MD DIAGNOSTIC IMAGING O RDERABLES * MAMMO BILAT SCREENING (08/04/2020 3:03 PM CDT) Only the most recent of2 resultswithin the time period is included. Anatomical Region Laterality Modality Breast Bilateral Mammography [...] occurred. Bola Carrillo MD MAMMO ORDERABLES * XR LUMBAR SPINE 4+ VW [id number] (04/23/2020 4:17 PM CDT) Anatomical Region Laterality Modality Spine Radiographic [place] ging 04/23/2020 4:30 PM CDT Impressions 04/23/2020 4:33 PM CDT 1. Mild levoscoliosis of the lumbar spine with mild degenerative changes. No acute osseous process noted. Narrative 04/23/2020 4:33 PM CDT STUDY: XR LUMBAR SPINE 4VW OR MORE 04/23/2020 4:17 PM COMPARISON: No prior studies available HISTORY: Low back pain FINDINGS: Mild levoscoliosis of the lumbar spine. Lumbar vertebral body heights are maintained. No evidence of spondylolisthesis or spondylolysis. Mild multilevel endplate spurring. Multilevel facet arthropathy. SI joint spaces are maintained and symmetric in appearance. Both hip joint spaces are maintained and symmetric in appearance. Nonspecific bowel gas pattern. Procedure Note Steve Nowak, DO - 04/23/2020 STUDY: XR LUMBAR SPINE 4VW OR MORE 04/23/2020 4:17 PM COMPARISON: No prior studies available HISTORY: Low back pain FINDINGS: Mild levoscoliosis of the lumbar spine. Lumbar vertebral body heights are maintained. No evidence of spondylolisthesis or spondylolysis. Mild multilevel endplate spurring. Multilevel facet arthropathy. SI joint spaces are maintained and symmetric in appearance. Both hip joint spaces are maintained and symmetric in appearance. Nonspecific bowel gas pattern. IMPRESSION 1. Mild levoscoliosis of the lumbar spine with mild degenerative changes. No acute osseous process noted. Dayanna Yuan CAR SANDER-[employer] MEMBER DIAGNOSTI C IMAGING ORDERABLES * URINALYSIS - POCT (IP) BEAKER INTERFACE (04/23/2020 3:37 PM CDT) Color UA POCT Yellow Straw, Yellow, Light Yellow 04/23/2020 3:32 PM CDT [facility] Clarity UA POCT Clear Clear 0 3:32 PM CDT [facility] Specific [place] UA POCT <=1.005 1.005 - 1.030 04/23/2020 3:32 PM CDT [facility] pH UA POCT 5.5 5.0 - 8.5 pH 04/23/2020 3:32 PM CDT [facility] Protein UA POCT Negative Negative 0 3:32 PM CDT [facility] Blood UA POCT Negative Negative, Trace-lysed, Trace-intact 04/23/2020 3:32 PM CDT [facility] Leukocyte UA POCT Negative Negative 04/23/2020 3:32 PM CDT [facility] Nitrite UA POCT Negative Negative 0 3:32 PM CDT [facility] Glucose UA POCT Negative Negative 0 3:32 PM CDT [facility] Ketone UA POCT Negative Negative 04/23/2020 3:32 PM CDT [facility] Bilirubin UA POCT Negative Negative 04/23/2020 3:32 PM CDT [facility] Urobilinogen UA POCT 0.2 0.2 - 1.0 EU/dL 04/23/2020 3:32 PM CDT [facility] Urine URINE / Unknown 04/23/2020 3 :37 PM CDT 04/23/2020 3:32 PM CDT Dayanna Yuan APRN-[employer]BER LAB - POI NT OF CARE ORDERABLES Performing Organization Address [facility] Co de Phone Number [facility] [address] * URINALYSIS - POCT (IP) NOTIFICATION (04/23/2020 3:28 PM CDT) Comment Notification Label Only - See Separate Report 04/23/2020 4:30 PM CDT [facility] Urine URINE / Unknown 04/23/2020 3 :28 PM CDT 04/23/2020 3:28 PM CDT Dayanna Yuan APRN-[employer]BER LAB - URI NALYSIS ORDERABLES Performing Organization Address [facility] Co de Phone Number [facility] [address] * XR ANKLE LEFT 3VW OR MORE (02/20/2020 6:43 PM CDT) Anatomical Region Laterality Modality Lower Extremity Radiographic [place] ging 02/20/2020 6:51 PM CDT Narrative 02/20/2020 6:51 PM CDT PROCEDURE: XR ANKLE LEFT 3VW OR MORE 02/20/2020 6:51 PM HISTORY: Pain in left ankle and joints of left foot. COMPARISON: None Report: No displaced fracture, dislocation or aggressive bone lesion seen. The bones appear mildly osteopenic and degenerative. The soft tissues appear within normal limits; no large ankle effusion. Procedure Note Billy Hemphill MD - 02/20/2020 PROCEDURE: XR ANKLE LEFT 3VW OR MORE 02/20/2020 6:51 PM HISTORY: Pain in left ankle and joints of left foot. COMPARISON: None Report: No displaced fracture, dislocation or aggressive bone lesion seen. The bones appear mildly osteopenic and degenerative. The soft tissues appear within normal limits; no large ankle effusion. Addy Bajwa PA-C DIAGNOSTIC IMAGING O RDERABLES * URINALYSIS REFLEX TO MICROSCOPIC NO CULTURE (01/16/2020 11:25 AM [facility]) Color UA Yellow Straw, Yellow 01/16/2020 12:07 PM [facility] Clarity UA Clear Clear 01/16/2020 12:07 PM [facility] Glucose UA Negative Negative 01/16/2020 12:07 PM [facility] Bilirubin UA Negative Negative 01/16/2020 12:07 PM [facility] Ketone UA Negative Negative 01/16/2020 12:07 PM [facility] Specific [place] UA 1.019 1.005 - 1.030 01/16/2020 12:07 PM [facility] Blood UA Negative Negative 01/16/2020 12:07 PM [facility] pH UA 6.0 5.0 - 8.0 pH 01/16/2020 12:07 PM [facility] Protein UA Negative Negative 01/16/2020 12:07 PM [facility] Urobilinogen UA Negative Negative mg/dL 01/16/2020 12:07 PM [facility] Nitrite UA Negative Negative 01/16/2020 12:07 PM [facility] Leukocyte UA Negative Negative 01/16/2020 12:07 PM [facility] Urine Microscopy Urine microscopy not indicated 01/16/2020 12:07 PM [facility] Urine URINE SPECIMEN OBTAINED BY CLEAN CATCH PROCEDURE / Unknown Collection / Unknown 01/16/2020 11:25 AM COMPENSATOR WORKER 01/16/2020 11:51 AM [facility] Narrative [facility] - 01/16/2020 12:07 PM COMPENSATOR WORKER Jeffrey Olivera MD LAB - URINALYSIS ORD MAGALIS [facility] [address] * HEPATITIS C ANTIBODY (12/11/2019 10:53 AM COMPENSATOR WORKER) Interpretation Hepatitis C Antibody [place] Negative Negative 12/12/2019 10:59 AM COMPENSATOR WORKER [employer] ([facility]) Comment: INTERPRETIVE INFORMATION: Hepatitis C [...] Antibody Index 0.05 IV 12/12/2019 10:59 AM COMPENSATOR WORKER [employer] ([facility]) Comment: Performed by [employer], [address] [place] [address] [email or web address], Jeremy Oneal MD, Lab. Director Blood BLOOD SPECIMEN / Unknown Lab Venipuncture / Unknown 12/11/2019 10:53 AM COMPENSATOR WORKER 12/11/2019 11:00 AM COMPENSATOR WORKER Bola Carrillo MD LAB - CHEMISTRY BARB WYLIE [employer] ([facility]) [address] * TSH (10/08/2019 9:53 AM COMPENSATOR WORKER) Only the most recent of3 resultswithin the time period is included. TSH 2.530 0.35 - 4.94 uIU/mL 10/08/2019 11:36 AM COMPENSATOR WORKER [facility] Blood BLOOD SPECIMEN / Unknown Lab Venipuncture / Unknown 10/08/2019 9:53 AM COMPENSATOR WORKER 10/08/2019 10:03 AM COMPENSATOR WORKER Bola Carrillo MD LAB - CHEMISTRY BARB WYLIE [facility] Organization Address City/State/ZIP Co de Phone Number [facility] [address] * [place] DEXA BONE DENSITY STUDY [id number] (07/02/2019 3:56 PM CDT) Anatomical Region Laterality [...] fracture 2.1% Bola Carrillo MD DEXA ORDERABLES * VAS VENOUS DUPLEX LOWER EXT BILATERAL [id number] (02/17/2019 1:50 PM CDT) Anatomical Region Laterality Modality Intravascular Ul trasound 02/17/2019 6:46 PM CDT Narrative Procedure Note Bola Carrillo MD - 02/17/2019 Text based report below. For full PDF report please click on Cardiac, Vascular Lab Orders Based Right: The deep veins imaged are compressible without evidence ofthrombus. There is phasic venous flow with normal response to valsalva and/oraugmentation. Left: The deep veins imaged are compressible without evidence of thrombus. There is phasic venous flow with normal response to valsalva and/oraugmentation. Conclusions: Negative for DVT in the lower extremities. Procedure: Venous duplex examination using B-mode, color flow and spectral doppler was performed. Bola Carrillo MD VASCULAR LAB ORDERAB LES * ECHOCARDIOGRAM 2D WITH DOPPLER (AKA ECHO CONSULT) (02/17/2019 12:00 AM CDT) 02/17/2019 Narrative [facility] - 02/17/2019 4:57 PM CDT [facility] [address] [place], [place] [address] Transthoracic Echocardiogram 2D, M-mode, Doppler, and Color Doppler Patient: JOANIE GALAN MR #: [id number] : 1955 Age: 63 years Gender: Female Study date: 17-Feb-2019 Status: Outpatient Room: - Height: 61.8 in Weight: 187 lb BSA: 1.86 m-sq Referring Physician: Bola Carrillo MD Diamond Wheel Molder: Josue Schaffer MD [facility] Hose Inspector: Crow Tello RDCS Summary: - Clinical question: R06.00 DYSPNEA - Left ventricle: Systolic function was normal. Ejection fraction was estimated in the range of 60 % to 65 %. - Left atrium: The atrium was mildly dilated. - Right ventricle: The ventricle was dilated. Estimated peak pressure was 15 mmHg. - Tricuspid valve: There was trace regurgitation. Clinical question: R06.00 DYSPNEA Procedure: The procedure was performed in the echo lab. This was a routine study. The transthoracic approach was used. The study included complete 2D imaging, M-mode, complete spectral Doppler, and color Doppler. The heart rate was 61 bpm, at the start of the study. Systolic blood pressure was 133 mmHg, at the start of the study. Diastolic blood pressure was 66 mmHg, at the start of the study. Images were obtained from the parasternal, apical, subcostal, and suprasternal notch acoustic windows. Image quality was adequate. Left ventricle: Size was normal. Systolic function was normal. Ejection fraction was estimated in the range of 60 % to 65 %. Cardiac wall motion was otherwise normal. Wall thickness was normal. Doppler: Left ventricular diastolic function parameters were normal for the patient's age. Aortic valve: The valve was trileaflet. Leaflets exhibited normal thickness and normal cuspal separation. Doppler: Transaortic velocity was within the normal range. There was no stenosis. There was no aortic valve regurgitation. Aorta: The root exhibited normal size. Mitral valve: Valve structure was normal. There was normal leaflet separation. Doppler: The transmitral velocity was within the normal range. There was no evidence for stenosis. There was trace regurgitation. Left atrium: The atrium was mildly dilated. Pulmonary veins: The pulmonary veins were normal sized. Doppler: Doppler flow pattern was normal in the pulmonary vein(s). Right ventricle: The ventricle was dilated. Systolic function was normal. Wall thickness was normal. Doppler: Estimated peak pressure was 15 mmHg. Pulmonic valve: Leaflets exhibited normal thickness, no calcification, and normal cuspal separation. Doppler: The transpulmonic velocity was within the normal range. There was no regurgitation. Tricuspid valve: The valve structure was normal. There was normal leaflet separation. Doppler: The transtricuspid velocity was within the normal range. There was no evidence for tricuspid stenosis. There was trace regurgitation. Right atrium: Size was normal. Systemic veins: IVC: The inferior vena cava was normal in size. Pericardium: There was no pericardial effusion. The pericardium was normal in appearance. System measurement tables 2D EF(Cube): 58.6 % ESV(Cube): 42.9 ml LVEF MOD A4C: 67.4 % SV(Cube): 60.6 ml SV(Teich): 51.2 ml IVSd: 1 cm IVSs: 1.2 cm LVEDV MOD A4C: 91.5 ml LVESV MOD A4C: 29.8 ml LVIDd: 4.7 cm LVIDs: 3.5 cm LVOT Diam: 2.3 cm LVPWd: 0.8 cm LVPWs: 1 cm LVs Mass: 135.8 g LVs Mass Index: 73 g/m2 RVIDd: 5.4 cm EF Biplane: 66.7 % LAAs A2C: 19.8 cm2 LAAs A4C: 23.4 cm2 LAESV A-L A2C: 61.1 ml LAESV A-L A4C: 78.8 ml LAESV Index (A-L): 38.7 ml/m2 LAESV MOD A2C: 58.9 ml LAESV MOD A4C: 73.4 ml LAESV(A-L): 72 ml LALs A2C: 5.5 cm LALs A4C: 5.9 cm LVEDV MOD A2C: 123.8 ml LVEDV MOD BP: 107.9 ml LVEF MOD A2C: 65.9 % LVESV MOD A2C: 42.3 ml LVESV MOD BP: 35.9 ml LVLd A2C: 8.4 cm LVLs A2C: 6.2 cm SV MOD A2C: 81.6 ml CW AV VTI: 40.1 cm AV Vmax: 1.6 m/s AV maxP.2 mmHg AV meanP.3 mmHg TR Vmax: 1.7 m/s TR maxP.1 mmHg MM AV Cusp: 2.1 cm PW SANDRA (VTI): 2.9 cm2 SANDRA Vmax: 3 cm2 LVCI Dopp: 3.5 l/minm2 LVCO Dopp: 6.6 L/min LVOT VTI: 29.3 cm LVOT Vmax: 1.2 m/s LVOT Vmean: 0.8 m/s LVOT maxP.6 mmHg LVOT meanP.8 mmHg LVSI Dopp: 63.1 ml/m2 LVSV Dopp: 117.4 ml MV A Santosh: 1 m/s MV Dec [place]: 5 m/s2 MV DecT: 210.5 ms MV E Santosh: 1.1 m/s MV E/A Ratio: 1 MV PHT: 62.9 ms MVA By PHT: 3.5 cm2 PV Vmax: 0.8 m/s PV maxP.5 mmHg RAP: 3 mmHg RVSP: 15.1 mmHg HR: 55.9 BPM All images and data generated for this procedure were personally reviewed by me. Prepared and Electronically Authenticated Josue Schaffer MD [facility] 17-Feb-2019 16:57:24 Procedure Note Unknown, Provider, MD - 02/17/[address] [address] Transthoracic Echocardiogram 2D, M-mode, Doppler, and Color Doppler Patient: JOANIE GALAN MR #: [id number] : 1955 Age: 63 years Gender: Female Study date: 17-Feb-2019 Status: Outpatient Room: - Height: 61.8 in Weight: 187 lb BSA: 1.86 m-sq Referring Physician: Bola Carrillo MD Diamond Wheel Molder: Josue Schaffer MD [facility] Hose Inspector: Crow Tello [facility] Summary: - Clinical question: R06.00 DYSPNEA - Left ventricle: Systolic function was normal. Ejection fraction was estimated in the range of 60 % to 65 %. - Left atrium: The atrium was mildly dilated. - Right ventricle: The ventricle was dilated. Estimated peak pressure was15 mmHg. - Tricuspid valve: There was trace regurgitation. Clinical question: R06.00 DYSPNEA Procedure: The procedure was performed in the echo lab. This was aroutine study. The transthoracic approach was used. The study included [id number] imaging, M-mode, complete spectral Doppler, and color Doppler. The heartrate was 61 bpm, at the start of the study. Systolic blood pressure was 133mmHg, at the start of the study. Diastolic blood pressure was 66 mmHg, at the startof the study. Images were obtained from the parasternal, apical, subcostal,and suprasternal notch acoustic windows. Image quality was adequate. Left ventricle: Size was normal. Systolic function was normal. Ejection fraction was estimated in the range of 60 % to 65 %. Cardiac wall motionwas otherwise normal. Wall thickness was normal. Doppler: Left ventricular diastolic function parameters were normal for the patient's age. Aortic valve: The valve was trileaflet. Leaflets exhibited normalthickness and normal cuspal separation. Doppler: Transaortic velocity was within thenormal range. There was no stenosis. There was no aortic valve regurgitation. Aorta: The root exhibited normal size. Mitral valve: Valve structure was normal. There was normal leafletseparation. Doppler: The transmitral velocity was within the normal range. There wasno evidence for stenosis. There was trace regurgitation. Left atrium: The atrium was mildly dilated. Pulmonary veins: The pulmonary veins were normal sized. Doppler: Dopplerflow pattern was normal in the pulmonary vein(s). Right ventricle: The ventricle was dilated. Systolic function was normal.Wall thickness was normal. Doppler: Estimated peak pressure was 15 mmHg. Pulmonic valve: Leaflets exhibited normal thickness, no calcification,and normal cuspal separation. Doppler: The transpulmonic velocity was withinthe normal range. There was no regurgitation. Tricuspid valve: The valve structure was normal. There was normalleaflet separation. Doppler: The transtricuspid velocity was within the normalrange. There was no evidence for tricuspid stenosis. There was traceregurgitation. Right atrium: Size was normal. Systemic veins: IVC: The inferior vena cava was normal in size. Pericardium: There was no pericardial effusion. The pericardium was normalin appearance. System measurement tables 2D EF(Cube): 58.6 % ESV(Cube): 42.9 ml LVEF MOD A4C: 67.4 % SV(Cube): 60.6 ml SV(Teich): 51.2 ml IVSd: 1 cm IVSs: 1.2 cm LVEDV MOD A4C: 91.5 ml LVESV MOD A4C: 29.8 ml LVIDd: 4.7 cm LVIDs: 3.5 cm LVOT Diam: 2.3 cm LVPWd: 0.8 cm LVPWs: 1 cm LVs Mass: 135.8 g LVs Mass Index: 73 g/m2 RVIDd: 5.4 cm EF Biplane: 66.7 % LAAs A2C: 19.8 cm2 LAAs A4C: 23.4 cm2 LAESV A-L A2C: 61.1 ml LAESV A-L A4C: 78.8 ml LAESV Index (A-L): 38.7 ml/m2 LAESV MOD A2C: 58.9 ml LAESV MOD A4C: 73.4 ml LAESV(A-L): 72 ml LALs A2C: 5.5 cm LALs A4C: 5.9 cm LVEDV MOD A2C: 123.8 ml LVEDV MOD BP: 107.9 ml LVEF MOD A2C: 65.9 % LVESV MOD A2C: 42.3 ml LVESV MOD BP: 35.9 ml LVLd A2C: 8.4 cm LVLs A2C: 6.2 cm SV MOD A2C: 81.6 ml CW AV VTI: 40.1 cm AV Vmax: 1.6 m/s AV maxP.2 mmHg AV meanP.3 mmHg TR Vmax: 1.7 m/s TR maxP.1 mmHg MM AV Cusp: 2.1 cm PW SANDRA (VTI): 2.9 cm2 SANDRA Vmax: 3 cm2 LVCI Dopp: 3.5 l/minm2 LVCO Dopp: 6.6 L/min LVOT VTI: 29.3 cm LVOT Vmax: 1.2 m/s LVOT Vmean: 0.8 m/s LVOT maxP.6 mmHg LVOT meanP.8 mmHg LVSI Dopp: 63.1 ml/m2 LVSV Dopp: 117.4 ml MV A Santosh: 1 m/s MV Dec [place]: 5 m/s2 MV DecT: 210.5 ms MV E Santosh: 1.1 m/s MV E/A Ratio: 1 MV PHT: 62.9 ms MVA By PHT: 3.5 cm2 PV Vmax: 0.8 m/s PV maxP.5 mmHg RAP: 3 mmHg RVSP: 15.1 mmHg HR: 55.9 BPM All images and data generated for this procedure were personally reviewedby nh. Prepared and Electronically Authenticated Josue Schaffer MD [facility] 17-Feb-2019 16:57:24 Bola Carrillo MD ECHO ORDERABLES [facility] * HEMOGLOBIN A1C (02/14/2019 2:40 PM CDT) Only the most recent of2 resultswithin the time period is included. Hemoglobin A1c 5.4 4.2 - 5.6 % 02/14/2019 5:00 PM CDT [facility] Estimated Average Glucose 108 mg/dL 02/14/2019 5:00 PM CDT [facility] Blood BLOOD SPECIMEN WITH EDTA / Unknown Venipuncture / Unknown 02/14/2019 2:40 PM CDT 02/14/2019 2:40 PM CDT Narrative [facility] - 02/14/2019 5:00 PM CDT The following cutoff levels are recommended by [place] [employer]. A1c > 6.5% : considered as diabetes if two separate tests >6.5% or in an appropriate clinical setting. A1c 5.7% - 6.4% : considered as prediabetes (suggest increased risk for diabetes and cardiovascular disease) Control target level: Should be individualized. < 7 for general (non-) , < 8% less stringent goal, < 6.5 more stringent goal. Hemoglobin A1c measurements are used as an aid in the diagnosis of diabetic mellitus, as an aid to identify patients who may be at the risk for developing diabetic mellitus, and for the monitoring long-term blood glucose control in individuals with diabetes mellitus. This test should not replace glucose testing for patients with Type 1 diabetes, pediatric patients, or women. Falsely low HbA1c results may be observed in patients with clinical conditions that shorten erythrocyte life span or decrease mean erythrocyte age such as the presence of unstable hemoglobin variants, elevated hemoglobin F level or other causes of hemolytic anemia . HbA1c may not accurately reflect glycemic control when clinical conditions that affect erythrocyte survival are present. Severe Iron deficiency anemia may yield falsely high results. Hemoglobin A1c assay should not be used to diagnose or monitor diabetes in patients with malignancy, recent blood transfusion, chronic kidney or liver disease and interpretation. This method may yield falsely low results when hemoglobin (HbF) exceeds 5% in the specimen. Mariely Coelho MD LAB - CHEMISTRY ORDERABLES [facility] [address] * [place] KIDNEY [address] (01/28/2019 4:45 PM CDT) Anatomical Region Laterality Modality Abdomen Ultrasound 01/29/2019 7:29 AM CDT Impressions 01/29/2019 7:30 AM CDT IMPRESSION:. Negative renal sonogram. Narrative 01/29/2019 7:30 AM CDT PROCEDURE: US RETROPERITONEAL LIMITED 01/29/2019 7:29 AM HISTORY: Unspecified kidney failure. FINDINGS AND IMPRESSION: COMPARISON: None. Right kidney measures 10.5 x 4.5 x 4.5 cm in size. Left kidney measures 10 x 5 x 5.5 cm in size. No evidence of hydronephrosis or renal stone disease. No solid renal mass lesion or perinephric fluid collection. No cystic renal lesion. Bladder was empty at the time of examination. Procedure Note Lisa Shultz MD - 01/29/2019 PROCEDURE: US RETROPERITONEAL LIMITED 01/29/2019 7:29 AM HISTORY: Unspecified kidney failure. FINDINGS AND IMPRESSION: COMPARISON: None. Right kidney measures 10.5 x 4.5 x 4.5 cm in size. Left kidney measures 10 x 5 x 5.5 cm in size. No evidence of hydronephrosis or renal stone disease. No solid renal mass lesion or perinephric fluid collection. No cystic renal lesion. Bladder was empty at the time of examination. IMPRESSION IMPRESSION:. Negative renal sonogram. Bola Carrillo MD US ORDERABLES * CARDIAC EKG ORDER (01/22/2019 9:12 AM CDT) Only the most recent of2 resultswithin the time period is included. Narrative 01/22/2019 9:12 AM CDT Ordered by an unspecified provider. Scanned Document CARDIAC SERVICES ORD ERABLES * XR CHEST 1VW PORTABLE (01/18/2019 12:51 PM COMPENSATOR WORKER) Anatomical Region Laterality Modality Chest Radiographic Chelsea ging 01/18/2019 1:01 PM COMPENSATOR WORKER Impressions 01/18/2019 1:02 PM COMPENSATOR WORKER No acute cardiopulmonary disease Narrative 01/18/2019 1:02 PM COMPENSATOR WORKER EXAM: XR CHEST 1VW PORTABLE AT 11:15 HOURS DATE: 01/18/2019 HISTORY: Other fatigue COMPARISON: 12/26/2016 FINDINGS: The lungs, pleura, cardiomediastinal silhouette, and bony thorax are normal Procedure Note Carlito Griffith MD - 01/18/2019 EXAM: XR CHEST 1VW PORTABLE AT 11:15 HOURS DATE: 01/18/2019 HISTORY: Other fatigue COMPARISON: 12/26/2016 FINDINGS: The lungs, pleura, cardiomediastinal silhouette, and bony thorax are normal IMPRESSION No acute cardiopulmonary disease Maine Whitley [facility] AGING ORDERABLES * EKG 12-LEAD (01/18/2019 12:35 PM COMPENSATOR WORKER) Ventricular Rate 55 BPM [facility] Atrial Rate 55 BPM [facility] P-R Interval 132 ms [facility] QRS Duration ms 90 ms [facility] Q-T Interval ms 414 ms [facility] QTC Calculation (Bezet) 396 ms [facility] Calculated P [place] 43 degrees [facility] Calculated R [place] 5 degrees [facility] Calculated T [place] 31 degrees [facility] Interpretation EKG SINUS BRADYCARDIA OTHERWISE NORMAL ECG NO PREVIOUS ECGS AVAILABLE Confirmed by JULIA DE LA TORRE, LOLI ([id number]), editorial director VENTURA BLAISE ([id number]) on 01/20/2019 1:22:26 PM [facility] 01/18/2019 12:3 5 PM COMPENSATOR WORKER 01/20/2019 1:22 PM CDT Maine Whitley [facility] ECG ORDERABLE S [facility] * B-TYPE NATRIURETIC PEPTIDE (01/18/2019 12:19 PM COMPENSATOR WORKER) BNP 51 10 - 100 pg/mL 01/18/2019 12:46 PM COMPENSATOR WORKER [facility] Blood BLOOD SPECIMEN / Unknown Lab Venipuncture / Unknown 01/18/2019 12:19 PM COMPENSATOR WORKER 01/18/2019 12:22 PM COMPENSATOR WORKER Maine Whitley [facility] - HOME HEALTH PHYSICAL THERAPIST RY ORDERABLES [facility] [address] * (ABNORMAL) URINE MICROSCOPIC ONLY REFLEX TO CULTURE (01/18/2019 12:12 PM COMPENSATOR WORKER) Only the most recent of2 resultswithin the time period is included. Reflex Status Culture not indicated 01/18/2019 12:27 PM COMPENSATOR WORKER [facility] RBC UA 0-2 None Seen, 0-2, 3-5 # /hpf 01/18/2019 12:27 PM COMPENSATOR WORKER [facility] WBC UA 0-5 None Seen, 0-5 # /hpf 01/18/2019 12:27 PM COMPENSATOR WORKER [facility] Bacteria UA None Seen None Seen 01/18/2019 12:27 PM COMPENSATOR WORKER [facility] Squamous Epithelial Cells 0-2 None Seen, 0-2, 3-5 /hpf 01/18/2019 12:27 PM [facility] Hyaline Casts 3-5(A) None Seen, 0-2 # /lpf 01/18/2019 12:27 PM COMPENSATOR WORKER [facility] Urine URINE SPECIMEN OBTAINED BY CLEAN CATCH PROCEDURE / Unknown Collection / Unknown 01/18/2019 12:12 PM COMPENSATOR WORKER 01/18/2019 12:15 PM COMPENSATOR WORKER Narrative [facility] - 01/18/2019 12:27 PM COMPENSATOR WORKER Maine Whitley CAR S[employer]ER[employer]BER LAB - URINALY SIS ORDERABLES [facility] [address] * CT BRAIN WO CONTRAST [id number] (01/09/2019 12:10 PM COMPENSATOR WORKER) Anatomical Region Laterality Modality Head Computed Tomogra phy 01/09/2019 1:23 PM COMPENSATOR WORKER Impressions 01/09/2019 1:28 PM COMPENSATOR WORKER Negative noncontrast head CT. Narrative 01/09/2019 1:28 PM COMPENSATOR WORKER PROCEDURE: CT HEAD WO CONTRAST 01/09/2019 1:23 PM HISTORY: Hallucinations, unspecified. FINDINGS AND IMPRESSION: COMPARISON: No comparison. Radiation dose reduction technique was utilized. FINDINGS: No acute intracranial hemorrhage, midline shift, or mass effect. No extra-axial fluid collection is identified. Brainstem and cerebellum appear unremarkable. Posterior cranial fossa and CP angles are normal. No evidence of hydrocephalus. No calvarial abnormalities noted. Visualized portions of paranasal sinuses, orbits and mastoid air cells appear unremarkable. Procedure Note Lisa Shultz MD - 01/09/2019 PROCEDURE: CT HEAD WO CONTRAST 01/09/2019 1:23 PM HISTORY: Hallucinations, unspecified. FINDINGS AND IMPRESSION: COMPARISON: No comparison. Radiation dose reduction technique was utilized. FINDINGS: No acute intracranial hemorrhage, midline shift, or mass effect. No extra-axial fluid collection is identified. Brainstem and cerebellum appear unremarkable. Posterior cranial fossa and CP angles are normal. No evidence of hydrocephalus. No calvarial abnormalities noted. Visualized portions of paranasal sinuses, orbits and mastoid air cells appear unremarkable. IMPRESSION Negative noncontrast head CT. Romulo Solano MD CT ORDERABLES * (ABNORMAL) DRUG ABUSE URINE SCREEN 10 (01/08/2019 9:30 PM [facility]) Pathologist [facility] Amphetamines Screen Urine Positive(A) Negative 01/08/2019 9:52 PM [facility] Barbiturates Screen Urine Negative Negative 01/08/2019 9:52 PM [facility] Benzodiazepines Screen Urine Negative Negative 01/08/2019 9:52 PM [facility] Cannabinoids Screen Urine Negative Negative 01/08/2019 9:52 PM [facility] Cocaine Screen Urine Negative Negative 01/08/2019 9:52 PM [facility] Methadone Screen Urine Negative Negative 01/08/2019 9:52 PM [facility] Opiate Screen Urine Negative Negative 01/08/2019 9:52 PM [facility] Phencyclidine Screen Urine Negative Negative 01/08/2019 9:52 PM [facility] Tricyclics Screen Urine Negative Negative 01/08/2019 9:52 PM [facility] Methamphetamine Screen Urine Negative Negative 01/08/2019 9:52 PM [facility] Buprenorphine Screen Urine Negative Negative 01/08/2019 9:52 PM [facility] Oxycodone Screen Urine Negative Negative 01/08/2019 9:52 PM [facility] Propoxyphene Screen Urine Negative Negative 01/08/2019 9:52 PM [facility] Urine URINE / Unknown Collection / Unknown 01/08/2019 9:30 PM [facility] 01/08/2019 9:40 PM [facility] - 01/08/2019 9:52 PM COMPENSATOR WORKER This is a presumptive/unconfirmed test for medical treatment purposes only. Clinical consideration and professional judgment should be applied when using presumptive results. If confirmatory testing, such as gas chromatography-mass spectrometry (GC/MS), of any positive results of this test is required, please notify the laboratory within 7 days of collection. This test is intended only for monitoring or management of patients. It is not intended for use in job-related and/or legal-related purposes. The cutoff value for each analyte is: Barbiturates.....200 ng/mL Benzodiazepines......150 ng/mL Cocaine..........150 ng/mL Opiates..............100 ng/mL Phencyclidine.....25 ng/mL Tricyclics...........300 ng/mL Cannabinoid.......50 ng/mL Amphetamines.........500 ng/mL Methadone........200 ng/mL Methamphetamines.....500 ng/mL Buprenorphine.....10 ng/mL Oxycodone............100 ng/mL Propoxyphene.....300 ng/mL Kaylah Morrissey MD LAB - URINE CHEMISTR Y ORDERABLES Performing Organization Address [facility] de Phone Number [facility] [address] * CULTURE URINE (01/08/2019 9:30 PM COMPENSATOR WORKER) Pathologist [facility] Culture Urine Light growth normal skin/urogen ital edilma SOUTH 01/10/2019 6:37 AM COMPENSATOR WORKER [facility] Urine URINE SPECIMEN OBTAINED BY CLEAN CATCH PROCEDURE / Unknown Collection / Unknown 01/08/2019 9:30 PM COMPENSATOR WORKER 01/08/2019 9:40 PM COMPENSATOR WORKER Kaylah Morrissey MD LAB - MICROBIOLOGY O RDERABLES Performing Organization Address [facility] de Phone Number [facility] [address] * ALCOHOL ETHYL BLOOD (01/08/2019 9:12 PM COMPENSATOR WORKER) Ethanol <10.0 <10 mg/dL 01/08/2019 9:3 7 PM COMPENSATOR WORKER [facility] Blood BLOOD SPECIMEN / Unknown Lab Venipuncture / Unknown 01/08/2019 9:12 PM COMPENSATOR WORKER 01/08/2019 9:14 PM COMPENSATOR WORKER [facility] - 01/08/2019 9:37 PM COMPENSATOR WORKER Obtain if suspected ingestion or if patient demonstrates harmful ideation, harmful behavior or psychosis. Kaylah Morrissey MD LAB - CHEMISTRY ORDAlex WYLIE Performing Organization Address [facility] de Phone Number [facility] [address] * (ABNORMAL) SALICYLATE LEVEL BLOOD (01/08/2019 9:12 PM COMPENSATOR WORKER) Salicylate <5.0(L) 15.0 - 30.0 mg/dL 01/08/2019 9:46 PM [facility] Blood BLOOD SPECIMEN / Unknown Lab Venipuncture / Unknown 01/08/2019 9:12 PM COMPENSATOR WORKER 01/08/2019 9:15 PM COMPENSATOR WORKER [facility] - 01/08/2019 9:46 PM COMPENSATOR WORKER Obtain if suspected ingestion or overdose. Kaylah Morrissey MD LAB - CHEMISTRY BARB WYLIE Performing Organization Address [facility] de Phone Number [facility] [address] * (ABNORMAL) ACETAMINOPHEN LEVEL (01/08/2019 9:12 PM COMPENSATOR WORKER) Acetaminophen <0.6(L) 10.0 - 30.0 ug/mL 01/08/2019 9:46 PM COMPENSATOR WORKER [facility] Blood BLOOD SPECIMEN / Unknown Lab Venipuncture / Unknown 01/08/2019 9:12 PM COMPENSATOR WORKER 01/08/2019 9:15 PM COMPENSATOR WORKER Narrative [facility] - 01/08/2019 9:46 PM COMPENSATOR WORKER Obtain if suspected ingestion or overdose. Kaylah Morrissey MD LAB - CHEMISTRY BARB WYLIE [facility] [address] Care Teams Electron Beam Welder Relationship Specialty Start Date End Date Duy Newman MD [address] [place] [id number] PCP - General Family Medicine 03/15/22
--- OUTSIDE RECORDS SUMMARY | 2024-12-19 15:41 | XMS_ITS | Clinical Summary ---
Author Organization [facility] Address [facility] [place] [address] Care Team Providers Care Logistics And Planning Manager Name Role Phone Srinivasan Newman MD Primary Care Provider [phone] Medications No known medications Active Problems Problem Noted Date Diagnosed Date History of total left knee replacement Family History Medical History Relation Comments Breast Cancer Sister Relation Status Comments Sister Social History Tobacco Use Types Packs/Day Years Used Date Smoking Tobacco: Never Assessed Comments Unknown Sex and Gender Information Value Date Recorded Sex Assigned at Not on file Legal Sex Female 6:36 PM WEEKDAY BABYSITTER Gender Identity Not on file Sexual Orientation Not on file Plan of Treatment Health Maintenance Due Date Last Done Comments Colorectal Cancer Screening Colonoscopy (10 Years) 1955 Hepatitis C 1974 Zoster Vaccines (1 of 2) 2006 Annual Medicare Wellness Visit 2021 Dexa Scan (General) 2021 Pneumococcal Vaccine: 65+ Years (2 of 2 - PPSV23 or PCV20) 11/15/2022 11/15/2021 COVID-19 Vaccine ( - season) 2024 09/14/2021, 02/02/2021, 01/12/2021 Influenza Adult (#1) 2024 08/11/2021, 08/24/2020, 01/10/2019, Additional history exists Mammogram Screening 10/18/2025 10/18/2023 DTaP, Tdap and Td Vaccines (2 - Td or Tdap) 08/08/2028 08/08/2018 RSV Immunization or 60+ Years (1 - 1-dose 75+ series) 2031 Meningococcal B Vaccine Aged Out No l onger eligible based on patient's age to complete this topic Meningococcal Vaccine Aged Out No megan avery eligible based on patient's age to complete this topic RSV Immunizations Under 20 Months Aged Out No longer eligible based on patient's age to complete this topic Procedures Procedure Name Priority Date/Time Associated Diagnosis Comments MG SCREENING W SATURNINO HORACIO DIGI Routine 10/18/2023 2:35 PM WEEKDAY BABYSITTER Encounter for screening mammogram for malignant neoplasm of breast from Last 3 Months or Most Recently Relevant to Health Maintenance Results * MG SCREENING W SATURNINO HORACIO DIGI (10/18/2023 2:35 PM WEEKDAY BABYSITTER) Anatomical Region Laterality Modality Breast Bilateral Mammography 10/31/2023 8:29 AM WEEKDAY BABYSITTER Narrative 10/31/2023 8:32 AM WEEKDAY BABYSITTER IMAGING STUDIES: Bilateral screening mammograms with computer-aided detection with 2-D and 3-D imaging. Tomosynthesis. DATE: 10/18/2023 2:05 PM HISTORY: SCREENING . Breast carcinoma in sister at age 20. COMPARISON: 07/02/2019. 08/04/2020 TISSUE TYPE: The breast tissue is almost entirely fatty. FINDINGS: 1. Fatty fibroglandular tissue pattern is present. 2. No malignant microcalfcifications, new dominant masses, or architectural distortion. 3. No skin thickening or nipple retraction. Axillary regions are within normal limits. IMPRESSION: 1. No mammographic evidence of malignancy. 2. Assessment: ACR BI-RADS 1 - NEGATIVE 3 .Routine Screening Bilateral MQSA BI-RADS Categories: Category 0 - needs additional imaging evaluation. Category 1 - negative. Category 2 - benign findings. Category 3 - probably benign findings, but short interval follow-up is recommended. Category 4 - suspicious abnormality and biopsy should be considered though the lesion may well be benign. Category 5 - highly suggestive of malignancy and appropriate action should be taken. Category 6 - known biopsy-proven malignancy A) A negative report should not delay a biopsy if a dominant or clinically suspicious mass is present. B) Adenosis and dense breasts may obscure an underlying neoplasm. C) Study interpreted with computer aided detection. Ordered By: SRINIVASAN NEWMAN Interpreted By: Liza Garcia, 10/31/2023 8:29 AM Srinivasan Newman MD MAMMO Final Result from Last 3 Months or Most Recently Relevant to Health Maintenance [facility] [address] Care Teams Logistics And Planning Manager Relationship Specialty Start Date End Date Srinivasan Newman MD [address] [place] [id number] PCP - General FAMILY PRACTICE 04/21/22
--- OUTSIDE RECORDS SUMMARY | 2024-12-19 15:41 | XMS_ITS ---
Author Organization [facility] Address Unknown Allergies, Adverse Reactions, Alerts Substance Reaction Status Noted Date Resolved Date Methotrexate active 03/25/2022 Iodine active 03/25/2022 Fosamax active 03/25/2022 Problems Problem Status Start Date End Date AFTERCARE FOLLOWING JOINT RE PLACEMENT SURGERY (Primary) (Z47.1 - ICD-10-CM) ACTIVE 03/25/2022 PRESENCE OF LEFT ARTIFICIAL KNEE JOINT (Z96.652 - ICD-10-CM) ACTIVE 03/25/2022 BILATERAL PRIMARY OSTEOARTHR ITIS OF KNEE (M17.0 - ICD-10-CM) ACTIVE 03/25/2022 ANXIETY DISORDER, UNSPECIFIED (F41.9 - ICD-10-CM) ACTI VE 03/25/2022 DEPRESSION, UNSPECIFIED (F32.A - ICD-10-CM) ACTIVE 03/25/2022 ESSENTIAL (PRIMARY) HYPERTENSION (I10 - ICD-10-CM) ACT ALEXIS 03/25/2022 GASTRO-ESOPHAGEAL REFLUX DIS EASE WITHOUT ESOPHAGITIS (K21.9 - ICD-10-CM) ACTIVE 03/25/2022 Encounters Encounter Performer Performer Role Encounter Diagnoses Location Date Discharge - Discharged to home or self care - HOME. - Private home/apt. with no home health services [facility] 03/25/2022 07:48 pm EDT - 03/25/2022 08:21 pm EDT Social History
--- OUTSIDE RECORDS SUMMARY | 2024-12-19 15:42 | XMS_ITS | Referral Summary ---
Author Organization [facility] Address [address] [place] [address] Care Team Providers Care Generator Man Name Role Phone Duy Newman MD Primary Care Provider [phone] Source Comments [facility],non-owned Affiliates and Associated Physician Practices is amultiple site organization consisting of ambulatory clinics and hospital sitesin [place], [place], [place] and [place]. This disclosure is being madepursuant to the Care Everywhere program and may not contain all information available regarding this patient. Last updated 18.[facility] [employer] Allergies Active Allergy Reactions Criticality Noted Date Comments Latex Rash Medium 08/08/2018 Vilazodone Hcl Swelling 07/01/2020 Alprazolam Shortness of Breath,Vision Changes High 0 02/28/2019 rash Zyprexa Swelling 03/26/2019 Medications * Be aware that medications may not be up to date on this document. Alwaysverify current medications with the patient. Medication Sig Dispensed Refills Start Date End Date Status Multiple Vitamins-Calcium (GNP ONE DAILY [facility] PO) Take 1 tablet by mouth [...] disorder 10/08/2019 Overview (10/08/2019): 07.29.19 Chelsea Castro IMPROVEMENT ANALYST-SIZING MACHINE OPERATOR Essential hypertension 05/09/2019 Hyperlipidemia 05/09/2019 Migraine without [...] 19 Immunizations Name Administration Dates Next Due [employer] primary monoval ent 12+ yr 0.3mL Purple cap 09/14/2021,02/02/2021,01/12/2021 INFLUENZA VACCINE, QUADR. (F LUZONE; FLULAVAL; FLUARIX; AFLURIA QUADRIVALENT; 6MO+), 0.5 ML (IIV4) 08/11/2021,08/24/2020,01/10/2019 Pneumococcal Pcv13 Conj 11/15/2021 TDAP (7yrs+) 08/08/2018 Social History Tobacco Use Types Packs/Day Years [...] Mass Index 37.07 03/22/2022 5:17 PM CDT Functional Status Functional Status Response Date of Assess ment Is person deaf or have serious hearing difficult y? No 03/22/2022 Is person blind or have serious difficulty seein g? No 03/22/2022 Does person have serious dif ficulty walking/climbing stairs? No 03/22/2022 Does person have difficulty dressing/bathing? No 03/22/2022 Does person have difficulty doing errands alone? No 03/22/2022 Cognitive Status Response Date of Assessm ent Does person have difficulty concentrating/remembering/making decisions? No 03/22/2022 Plan of Treatment Not on file Medical Devices Implanted Type Area Satellite Project Site Monitor Device Identifier Shelf Expiration Date Model / Serial / Lot Cmnt Bone Plc Mv+G Gnta 40gm Med Vsc Implanted:Qty: 1 on 03/22/2022 by Suman Jones MD at [facility] Left: Knee Heraeus Kulzer [employer] 08/11/2024 [id number] / / [id number] Cmnt Bone Plc Mv+G Gnta 40gm Med Vsc Implanted:Qty: 1 [facility]: Knee Tony Cisneroslcorby Bateman 09/11/2023 [id number] / / [id number] Cmpnt Fem Kn Lt 4 Post Stab Gns2 Legion Implanted:Qty: 1 on 03/22/2022 by Suman Jones MD at [facility] Left: Knee [employer] 02/07/2032 [id number] / / [id number] Bsplt Tib Legion 4 Kn Lt Cmnt M Tpr Ti Implanted:Qty: 1 on 03/22/2022 by Suman Jones MD at [facility] Left: Knee [employer] 12/09/2031 [id number] / / [id number] Cmpnt Ptlr 26mm Rsrfc Journey Lck Gns2 Implanted:Qty: 1 on 03/22/2022 by Suman Jones MD at [facility] Left: Knee [employer] 10/19/2031 [id number] / / [id number] Ins Tib 3-4 10mm Kn Xlpe Post Stab Hi Implanted:Qty: 1 on 03/22/2022 by Suman Jones MD at [facility] Left: Knee [employer] 04/15/2027 [id number] / / [id number] Explanted Type Area Satellite Project Site Monitor Device Identifier Shelf Expiration Date Model / Serial / Lot Pin Fx 65mm Spd Strl [facility] [facility]: Knee [employer] [id number] / / Pin Fx 30mm Spd Rim Strl Explanted:Qty: 1 on [facility]22[facility] [facility] Left: Knee [employer] [id number] / / Procedures Procedure Name Priority Date/Time Associated Diagnosis Comments RENAL FUNCTION PANEL AM Draw 03/25/2022 6:25 AM CDT MAMMO BILAT SCREENING Routine 08/04/2020 3:03 PM CDT Breast cancer screening HEPATITIS C ANTIBODY Routine 12/11/2019 10:53 AM BARREL PAINTER Need for influenza vaccination DEXA BONE DENSITY AXIAL SKELETON Routine 07/02/2019 3:56 PM CDT Postmenopausal from Last 3 Months or Most Recently Relevant to Health Maintenance Results * (ABNORMAL) RENAL FUNCTION PANEL (03/25/2022 6:25 AM CDT) [facility] Glucose 99 70 - 125 mg/dL 03/25/2022 7:00 AM CDT [facility] Sodium 136 136 - 145 mmol/L 03/25/2022 7:00 AM CDT [facility] Potassium 5.5(H) 3.4 - 5.1 mmol/L 03/25/2022 7:00 AM CDT [facility] Chloride 104 98 - 107 mmol/L 03/25/2022 7:00 AM CDT [facility] CO2 23 22 - 29 mmol/L 03/25/2022 7:00 AM CDT [facility] Calcium 8.66 8.4 - 10.2 mg/dL 03/25/2022 7:00 AM CDT [facility] Anion Gap 15 10 - 20 mmol/L 03/25/2022 7:00 AM CDT [facility] BUN 28.0(H) 9.8 - 20.1 mg/dL 03/25/2022 7:00 AM CDT [facility] Creatinine 1.12(H) 0.57 - 1.11 mg/dL 03/25/2022 7:00 AM CDT [facility] Albumin 2.9(L) 3.5 - 5.0 gm/dL 03/25/2022 7:00 AM CDT [facility] Phosphorus 3.06 2.3 - 4.7 mg/dL 03/25/2022 7:00 AM CDT [facility] eGFR by MDRD 49(L) >60 mL/min/1.7 3m2 03/25/2022 7:00 AM CDT [facility] eGFR by MDRD 59(L) >60 mL/min/1.7 3m2 03/25/2022 7:00 AM CDT [facility] Blood BLOOD SPECIMEN / Unknown Lab Venipuncture / Unknown 03/25/2022 6:25 AM CDT 03/25/2022 6:38 AM CDT Juan Alberto Mccormick MD LAB - CHEMISTR Y ORDERABLES [facility] [address] [place] [address], [facility] * MAMMO BILAT SCREENING (08/04/2020 3:03 [...] * HEPATITIS C ANTIBODY (12/11/2019 10:53 AM BARREL PAINTER) Interpretation Hepatitis C Antibody [place] Negative Negative 12/12/2019 10:59 AM BARREL PAINTER [facility] ([facility]) Comment: INTERPRETIVE INFORMATION: Hepatitis C Virus Antibody [...] Antibody Index 0.05 IV 12/12/2019 10:59 AM BARREL PAINTER [facility] ([facility]) Comment: Performed by [facility], [address] [place] [address] [email or web address]!, Jeremy Oneal MD, Lab. Director Blood BLOOD SPECIMEN / Unknown Lab Venipuncture / Unknown 12/11/2019 10:53 AM BARREL PAINTER 12/11/2019 11:00 AM BARREL PAINTER Bola Carrillo MD LAB - CHEMISTRY BARB WYLIE [facility] ([facility]) [address] * US DEXA BONE DENSITY STUDY [id number] (07/02/2019 3:56 PM CDT) Anatomical Region Laterality [...] 2:21 PM 01/13/2019 11:58 AM Care Teams Generator Man Relationship Specialty Start Date End Date Duy Newman MD [address] [place] [id number] PCP - General Family Medicine 03/15/22
[2024-12-19 16:57] LABS: Alanine Aminotransferase 26 U/L (6-35); Albumin Level 4.4 g/dL (3.5-5.1); Alkaline Phosphatase 108 U/L (38-126); Anion Gap 12 mmol/L (4-12); Aspartate Amino Transferase 28 U/L (14-36); Bilirubin,Total 0.6 mg/dL (0.2-1.3); Blood Urea Nitrogen 30 mg/dL (7-17); Calcium 9.3 mg/dL (8.4-10.2); Carbon Dioxide 23 mmol/L (22-30); Chloride 106 mmol/L (98-107); Estimated Glomerular Filt Rate 51; Glucose 87 mg/dL (65-110); Phosphorus 3.2 mg/dL (2.5-4.5); Sodium 141 mmol/L (137-145)
== END 2024-12-19 15:37 | disposition home or self-care (01) ==
LOC: ANHLAB 15:39
PROVIDERS: PCP Family Medicine; Visit Provider Nurse Practitioner Family
DX: M81.0 Age-related osteoporosis without current pathological fracture (principal); R94.4 Abnormal results of kidney function studies
CPT/HCPCS: 36415; 80053; 83735; 84100

== ENCOUNTER 2025-01-17 12:52 | Outpatient (CLI) | payer MEDICARE, SELFPAY ==
--- OUTSIDE RECORDS SUMMARY | 2025-01-17 12:56 | XMS_ITS | Clinical Summary ---
Author Organization [facility] Address [facility] [place] [address] Care Team Providers Care Slot Host Name Role Phone Srinivasan Newman MD Primary Care Provider [phone] Medications No known medications Active Problems Problem Noted Date Diagnosed Date History of total left knee replacement Family History Medical History Relation Comments Breast Cancer Sister Relation Status Comments Sister Social History Tobacco Use Types Packs/Day Years Used Date Smoking Tobacco: Never Assessed Comments Unknown Sex and Gender Information Value Date Recorded Sex Assigned at Not on file Legal Sex Female 6:36 PM SENIOR PHYSICAL THERAPIST Gender Identity Not on file Sexual Orientation [...] SATURNINO HORACIO DIGI Routine 10/18/2023 2:35 PM SENIOR PHYSICAL THERAPIST Encounter for screening mammogram for malignant neoplasm of breast from Last 3 Months or Most Recently Relevant to Health Maintenance Results * MG SCREENING W SATURNINO HORACIO DIGI (10/18/2023 2:35 PM SENIOR PHYSICAL THERAPIST) Anatomical Region Laterality Modality Breast Bilateral Mammography 10/31/2023 8:29 AM SENIOR PHYSICAL THERAPIST Narrative 10/31/2023 8:32 AM SENIOR PHYSICAL THERAPIST IMAGING STUDIES: Bilateral screening mammograms with computer-aided [...] Recently Relevant to Health Maintenance [facility] [address] Care Teams Slot Host Relationship Specialty Start Date End Date Srinivasan Newman MD [address] [place] [id number] PCP - General FAMILY PRACTICE 04/21/22
--- OUTSIDE RECORDS SUMMARY | 2025-01-17 12:56 | XMS_ITS | Referral Summary ---
Author Organization [facility] Address [address] [place] [address] Care Team Providers Care Prize Fighter Name Role Phone Duy Newman MD Primary Care Provider [phone] Source Comments [facility],non-owned Affiliates and Associated Physician Practices is amultiple site organization consisting of ambulatory clinics and hospital sitesin [place], [place], [place] and [place]. This disclosure is being madepursuant to the Care Everywhere program and may not contain all information available regarding this patient. Last updated 18.[facility] [employer] Allergies Active Allergy Reactions Criticality Noted Date Comments Latex Rash Medium 08/08/2018 Vilazodone Hcl Swelling 07/01/2020 Alprazolam Shortness of Breath,Vision Changes High 0 02/28/2019 rash Zyprexa Swelling 03/26/2019 Medications * Be aware that medications may not be up to date on this document. Alwaysverify current medications with the patient. Medication Sig Dispensed Refills Start Date End Date Status Multiple Vitamins-Calcium (GNP ONE DAILY [facility] PO) Take 1 tablet by mouth [...] disorder 10/08/2019 Overview (10/08/2019): 07.29.19 Chelsea Castro DIABETES EDUCATOR-PUBLICATION DIRECTOR Essential hypertension 05/09/2019 Hyperlipidemia 05/09/2019 Migraine without [...] 19 Immunizations Name Administration Dates Next Due Echodio primary monoval ent 12+ yr 0.3mL Purple [...] on file Medical Devices Implanted Type Area Television News Reporter Device Identifier Shelf Expiration Date Model / Serial / Lot Cmnt Bone Plc Mv+G Gnta 40gm Med Vsc Implanted:Qty: 1 on 03/22/2022 by Suman Jones MD at [facility] Left: Knee Heraeus Kulzer [employer] 08/11/2024 [id number] / / [id number] Cmnt Bone Plc Mv+G Gnta 40gm Med Vsc Implanted:Qty: [facility] Knee Tony Cisneroslcorby Bateman 09/11/2023 [id number] / / [id number] Cmpnt Fem Kn Lt 4 Post Stab Gns2 Legion Implanted:Qty: 1 on 03/22/2022 by Suman Jones MD at [facility]ric Left: Knee [employer] 02/07/2032 [id number] / / [id number] Bsplt Tib Legion 4 Kn Lt Cmnt M Tpr Ti Implanted:Qty: 1 on 03/22/2022 by Suman Jones MD at [facility]ric Left: Knee [employer] 12/09/2031 [id number] / / [id number] Cmpnt Ptlr 26mm Rsrfc Journey Lck Gns2 Implanted:Qty: 1 on 03/22/2022 by Suman Jones MD at [facility]ric Left: Knee [employer] 10/19/2031 [id number] / / [id number] Ins Tib 3-4 10mm Kn Xlpe Post Stab Hi Implanted:Qty: 1 on 03/22/2022 by Suman Jones MD at [facility] Patric Left: Knee [employer] 04/15/2027 [id number] / / [id number] Explanted Type Area Television News Reporter Device Identifier Shelf Expiration Date Model / Serial / Lot Pin Fx 65mm Spd Strl [facility] Knee [employer] [id number] / / Pin Fx 30mm Spd Rim Strl Explanted:Qty: 1 [facility]: Knee [employer] [id number] / / Procedures Procedure Name Priority Date/Time Associated Diagnosis Comments RENAL FUNCTION PANEL AM Draw 03/25/2022 6:25 AM CDT MAMMO BILAT SCREENING Routine 08/04/2020 3:03 PM CDT Breast cancer screening HEPATITIS C ANTIBODY Routine 12/11/2019 10:53 AM LOADING UNIT OPERATOR Need for influenza vaccination DEXA BONE DENSITY AXIAL SKELETON Routine 07/02/2019 3:56 PM CDT Postmenopausal from Last 3 Months or Most Recently Relevant to Health Maintenance Results * (ABNORMAL) RENAL FUNCTION PANEL (03/25/2022 6:25 AM CDT) [facility] Glucose 99 70 - 125 mg/dL [...] Mccormick MD LAB - CHEMISTR Y ORDERABLES [facility] [address] [place] [address], [place] * MAMMO BILAT SCREENING (08/04/2020 3:03 PM [...] * HEPATITIS C ANTIBODY (12/11/2019 10:53 AM LOADING UNIT OPERATOR) Interpretation Hepatitis C Antibody [place] Negative Negative 12/12/2019 10:59 AM LOADING UNIT OPERATOR [employer] ([facility]) Comment: INTERPRETIVE INFORMATION: Hepatitis C Virus Antibody [...] Antibody Index 0.05 IV 12/12/2019 10:59 AM LOADING UNIT OPERATOR [employer] ([facility]) Comment: Performed by [employer], [address] [place] [address] [email or web address], Jeremy Oneal MD, Lab. Director Blood BLOOD SPECIMEN / Unknown Lab Venipuncture / Unknown 12/11/2019 10:53 AM LOADING UNIT OPERATOR 12/11/2019 11:00 AM LOADING UNIT OPERATOR Bola Carrillo MD LAB - CHEMISTRY BARB WYLIE [employer] ([facility]) [address] * US DEXA BONE DENSITY STUDY [id number] (07/02/2019 3:56 PM CDT) Anatomical Region Laterality [...] 2:21 PM 01/13/2019 11:58 AM Care Teams Prize Fighter Relationship Specialty Start Date End Date Duy Newman MD [address] [place] [id number] PCP - General Family Medicine 03/15/22
--- OUTSIDE RECORDS SUMMARY | 2025-01-17 12:56 | XMS_ITS ---
Author Organization [facility] Support Name Relationship Address Phone Joanie Galan Personal Relationship [address] [id number] Kenisha Loera Emergency Contact , -[phone] Allergies and adverse reactions Code CodeSystem Substance Reaction Severity StartDate Concern Status 6851 RXNORM Methotrexate Unknown 03/25/2022 active Iodine Unknown 03/25/2022 active Fosamax Unknown 03/25/2022 active Mental Status Section Date Assessment Total Score Description 03/25/2022 CAM 0 No delirium ind icated Problems Problem # Description Date of onset Resolved Date Code CodeSystem Concern Status 1 AFTERCARE FOLLOWING JOINT REPLACEMENT SURGERY 03/25/[address] active 2 ANXIETY DISORDER, UNSPECIFIED 03/25/[address] active 3 BILATERAL PRIMARY OSTEOARTHRITIS OF KNEE 03/25/[address] active 4 DEPRESSION, UNSPECIFIED 03/25/[address] active 5 ESSENTIAL (PRIMARY) HYPERTENSION 03/25/[address] active 6 GASTRO-ESOPHAGEAL REFLUX DISEASE WITHOUT ESOPHAGITIS 03/25/[address] active 7 PRESENCE OF LEFT ARTIFICIAL KNEE JOINT 03/25/[address] active Reason for Referral No Reasons for Referral Entered Social History Social History Observation Description Start Date End Date Code Code System Current Smoking Status Tobacco smoking consumption unknown 682357145 SNOMED CT Sex Assigned At Female 1955 [address]-[address] [facility]
--- OUTSIDE RECORDS SUMMARY | 2025-01-17 12:56 | XMS_ITS | Patient Health Summary ---
Author Organization [facility] Address [address] [place] [address] Care Team Providers Care Orthotist Prosthetist Name Role Phone Duy Newman MD Primary Care Provider [phone] Note from Formerly named [facility],non-owned Affiliates and Associated Physician Practices is amultiple site organization consisting of ambulatory clinics and hospital sitesin [place], [place], [place] and [place]. This disclosure is being madepursuant to the Care Everywhere program and may not contain all information available regarding this patient. Last updated 18.[facility] Allergies * Latex(Rash) -Medium Criticality * [...] TWICE DAILY 5 refills by 12/21/2022 * Iogsetw-Svgzyodti-Pwgjuai D (CALCIUM 1200+D3 PO) Take 2 tablets [...] PM CDT Medical Devices Implanted Type Area Textiles And Clothing Teacher Device Identifier Shelf Expiration Date Model / Serial / Lot Cmnt Bone Plc Mv+G Gnta 40gm Med Vsc Implanted:Qty: 1 on 03/22/2022 by Suman Jones MD at [facility] Left: Knee Heraeus Kulzer Jelenko 08/11/2024 [id number] / / [id number] Cmnt Bone Plc Mv+G Gnta 40gm Med Vsc Implanted:Qty: 1 on 03/22/2022 by Suman Jones MD at [facility] Left: Knee Heraeus Kulzer Jelenko 09/11/2023 [id number] / / [id number] Cmpnt Fem Kn Lt 4 Post Stab Gns2 Legion Implanted:Qty: 1 on 03/22/2022 by Suman Jones MD at [facility] Left: Knee [employer] 02/07/2032 [id number] / / [id number] Bsplt Tib Legion 4 Kn Lt Cmnt M Tpr Ti Implanted:Qty: 1 on 03/22/2022 by Suman Jones MD at [facility] Left: Knee [employer] 12/09/2031 [id number] / / [id number] Cmpnt Ptlr 26mm Rsrfc Journey Lck Gns2 Implanted:Qty: 1 on 03/22/2022 by Suman Jones MD at [facility] Left: Knee [employer] 10/19/2031 [id number] / / [id number] Ins Tib 3-4 10mm Kn Xlpe Post Stab Hi Implanted:Qty: 1 on 03/22/2022 by Suman Jones MD at [facility] Left: Knee [employer] 04/15/2027 [id number] / / [id number] Explanted Type Area Textiles And Clothing Teacher Device Identifier Shelf Expiration Date Model / Serial / Lot Pin Fx 65mm Spd Strl Explanted:Qty: 1 on 03/22/2022 at [facility] Left: Knee [employer] [id number] / / Pin Fx 30mm Spd Rim Strl Explanted:Qty: 1 on 03/22/2022 at [facility] Left: Knee [employer] [id number] / / Procedures * XR KNEE RIGHT [...] kidney disease) stage 3, GFR 30-59 ml/min ([facility]) * CBC W AUTO DIFFERENTIAL(Performed 01/16/2020) Performed for CKD (chronic kidney disease) stage 3, GFR 30-59 ml/min ([facility]) * LIPID PROFILE(Performed 01/16/2020) Performed for CKD (chronic kidney disease) stage 3, GFR 30-59 ml/min ([facility]), Mixed hyperlipidemia * URINALYSIS REFLEX TO MICROSCOPIC NO CULTURE(Performed 01/16/2020) Performed for CKD (chronic kidney disease) stage 3, GFR 30-59 ml/min ([facility]) * HEPATITIS C ANTIBODY(Performed 12/11/2019) [...] 04/11/2019) Performed for LISHA (acute kidney injury) ([facility]) * LIPID PROFILE(Performed 04/11/2019) Performed [...] Ken Donovan M.D. MF: KANDICE Report ID: [id number] Reading Location: [id number] Narrative 04/22/2023 10:14 [place] [address] RADIOLOGY REPORT Patient Name: JOANIE GALAN Date [...] Procedure Note Ken Donovan MD - 04/22/2023 [facility] [address] [place] [address] RADIOLOGY REPORT Patient Name: JOANIE GALAN Date [...] Ken Donovan M.D. MF: KANDICE Report ID: [id number] Reading Location: [id number] Suman Jones MD DIAGNOSTIC IMAGING O RDERABLES [...] Ken Donovan M.D. MF: KANDICE Report ID: [id number] Reading Location: [id number] Narrative 03/11/2023 10:10 [place] [address] RADIOLOGY REPORT Patient Name: JOANIE GALAN Date [...] Procedure Note Ken Donovan MD - 03/11/2023 [place] [address] RADIOLOGY REPORT Patient Name: JOANIE GALAN Date [...] Ken Donovan M.D. MF: KANDICE Report ID: [id number] Reading Location: [place] [address] Suman Jones MD DIAGNOSTIC IMAGING O RDERABLES * CARDIAC RHYTHM STRIP ORDER (03/28/2022 10:10 AM CDT) Only the most recent of2 resultswithin the time period is included. Narrative 03/28/2022 10:10 AM CDT Ordered by an unspecified provider. Scanned Document CARDIAC SERVICES ORD ERABLES * SARS-COV-2 (COVID-19) RAPID (03/25/2022 11:12 AM CDT) COVID-19 PCR Not detected Not detected, Invalid 03/25/2022 12:00 PM CDT [facility] Microbiology SPECIMEN FROM NASOPHARYNGEAL STRUCTURE / Unknown Collection / Unknown 03/25/2022 11:12 AM CDT 03/25/2022 11:18 AM CDT Narrative AM LABORATORY - 03/25/2022 12:00 PM CDT The [employer] Xpert Xpress SARS-COV-2 has been authorized by [...] - MICROBIO LOGY ORDERABLES Performing Organization Address City/State/[facility] Co de Phone Number [facility] [address] * (ABNORMAL) CBC W AUTO DIFFERENTIAL [...] - 0.5 % 03/25/2022 6:43 AM CDT [facility] Neutrophil Absolute 4.33 1.56 - 6.13 x10E9/L 03/25/2022 6:43 AM CDT AM LABORATORY Lymphocytes Absolute 1.52 1.18 - 3.74 x10E9/L 03/25/2022 6:43 AM CDT [facility] Monocytes Absolute 0.54 0.24 - 0.86 x10E9/L 03/25/2022 6:43 AM CDT AM LABORATORY Eosinophils Absolute 0.22 0.04 - 0.54 x10E9/L 03/25/2022 6:43 AM CDT AM LABORATORY Basophils Absolute 0.01 0.01 - 0.08 x10E9/L 03/25/2022 6:43 AM T AM LABORATORY Immature Granulocytes Absolute 0.01 0 - 0.03 x10E9/L 03/25/2022 6:43 AM CDT [facility] nRBC Auto 0 <=0 /100 WBC 03/25/2022 6:43 AM CDT AM LABORATORY nRBC Absolute 0.00 <=0 x10E9/L 03/25/2022 6:43 AM CDT [facility] Blood BLOOD SPECIMEN / Unknown Lab Venipuncture / Unknown 03/25/2022 6:25 AM CDT 03/25/2022 6:38 AM CDT Suman Jones MD LAB - HEMATOLOGY ORD ERABLES [facility] [address] [place] [address], [facility] * (ABNORMAL) RENAL FUNCTION PANEL (03/25/2022 6:25 AM CDT) Only the most recent of2 resultswithin the time period is included. Glucose 99 70 - 125 mg/dL 03/25/2022 7:00 AM CDT [facility] Sodium 136 136 - 145 mmol/L 03/25/2022 7:00 AM CDT [facility] Potassium 5.5(H) 3.4 - 5.1 mmol/L 03/25/2022 7:00 AM CDT [facility] Chloride 104 98 - 107 mmol/L 03/25/2022 7:00 AM CDT [facility] CO2 23 22 - 29 mmol/L 03/25/2022 7:00 AM CDT [facility] Calcium 8.66 8.4 - 10.2 mg/dL 03/25/2022 7:00 AM CDT [facility] Anion Gap 15 10 - 20 mmol/L 03/25/2022 7:00 AM CDT [facility] BUN 28.0(H) 9.8 - 20.1 mg/dL 03/25/2022 7:00 AM CDT [facility] Creatinine 1.12(H) 0.57 - 1.11 mg/dL 03/25/2022 7:00 AM CDT [facility] Albumin 2.9(L) 3.5 - 5.0 gm/dL 03/25/2022 7:00 AM CDT [facility] Phosphorus 3.06 2.3 - 4.7 mg/dL 03/25/2022 7:00 AM CDT [facility] eGFR by MDRD 49(L) >60 mL/min/1.7 3m2 03/25/2022 7:00 AM CDT [facility] eGFR by MDRD 59(L) >60 mL/min/1.7 3m2 03/25/2022 7:00 AM CDT [facility] Blood BLOOD SPECIMEN / Unknown Lab Venipuncture / Unknown 03/25/2022 6:25 AM CDT 03/25/2022 6:38 AM CDT Juan Alberto Mccormick MD LAB - CHEMISTR Y ORDERABLES [facility] [address] [place], [place] [id number] [place] [address] * (ABNORMAL) COMPREHENSIVE METABOLIC PANEL (03/24/2022 4:44 AM CDT) Only the most recent of10 resultswithin the time period is included. Glucose 106 70 - 125 mg/dL 03/24/2022 5:25 AM CDT [facility] Sodium 135(L) 136 - 145 mmol/L 03/24/2022 5:25 AM CDT [facility] Potassium 5.0 3.4 - 5.1 mmol/L 03/24/2022 5:25 AM CDT [facility] Chloride 105 98 - 107 mmol/L 03/24/2022 5:25 AM CDT [facility] CO2 23 22 - 29 mmol/L 03/24/2022 5:25 AM CDT [facility] Calcium 8.35(L) 8.4 - 10.2 mg/dL 03/24/2022 5:25 AM CDT [facility] Anion Gap 12 10 - 20 mmol/L 03/24/2022 5:25 AM CDT [facility] BUN 33.8(H) 9.8 - 20.1 mg/dL 03/24/2022 5:25 AM CDT [facility] Creatinine 1.29(H) 0.57 - 1.11 mg/dL 03/24/2022 5:25 AM CDT [facility] eGFR by MDRD 41(L) >60 mL/min/1.7 3m2 03/24/2022 5:25 AM CDT [facility] eGFR by MDRD 50(L) >60 mL/min/1.7 3m2 03/24/2022 5:25 AM CDT [facility] Alkaline Phosphatase 101 40 - 150 [...] Akila Mack MD LAB - CHEMISTRY ORDERABLES [facility] [address] * (ABNORMAL) BASIC METABOLIC PANEL (CALCIUM [...] Jones MD LAB - CHEMISTRY BARB WYLIE [facility] Organization Address City/State/ZIP Co de Phone Number [facility] [address] * XR KNEE 1 OR 2 [...] DATE/TIME OF EXAM: 03/22/2022 9:56 AM, LOCATION [facility] INDICATION: Z96.652: Presence of left artificial [...] DATE/TIME OF EXAM: 03/22/2022 9:56 AM, LOCATION [facility] INDICATION: Z96.652: Presence of left artificial [...] CDT) Case Report Surgical Pathology Report Case: [id number] Authorizing Provider: Suman Jones MD Collected: 03/22/2022 08:01 AM Ordering Location: [facility] Received: 03/22/2022 11:26 AM Pathologist: Nick Whitman MD Specimen: Bone Knee, left tissue and bone from total knee arthroplasty 03/24/2022 4:18 PM CDT [facility] Final Diagnosis Bone And Tissue, Left Knee, Left Total Knee Arthroplasty: - Advanced osteoarthritis. 03/24/2022 4:18 PM CDT [facility] Microscopic Description and Comment Microscopic examination [...] bone cut surface is roth-white and trabeculated. Deli Worker sections are submitted in cassete A1 post decalcification. AW 03/24/2022 4:18 PM CDT [facility] Disclaimer The performance characteristics of all immunohistochemical and indirect immunofluorescence stains (if any) cited in this report were determined by the Histopathology [facility] of [facility]. Some of these tests were developed by [...] testing. This case was interpreted by the [facility] Department of Pathology. When applicable, select reference laboratory testing is performed at the [facility] Pathology [facility], [address] [place] [address]. 03/24/2022 4:18 PM CDT [facility] Embedded Images 03/24/2022 4:18 PM CDT [facility] Pathology/Cytology BONE STRUCTURE OF KNEE JOINT REGION / Unknown 03/22/2022 8:01 AM CDT 03/22/2022 11:26 AM CDT Comment:Pre-op diagnosis: Primary osteoarthritis of left knee [M17.12] Suman Jones MD LAB - PATHOLOGY/CYTO LOGY ORDERABLES Performing Organization Address [facility]/State/[facility] de Phone Number [facility] [address] LABORATORY [address] [place], [place] [id number] [place] [address] * Neuraxial Block (03/22/2022 7:52 AM CDT) [...] Time: 3 Staff: Anesthesia Provider: Dakotah Lopez APRN-PHYSICIST ASTROPHYSICS - performed the procedure Josh Loera MD GENERAL ANESTHESIA ORDERABLES * BLOOD TYPE VERIFICATION (03/22/2022 6:30 AM CDT) Pathologist [facility] ABO Rh O NEG 03/22/2022 8:3 3 AM CDT [facility] Blood Bank BLOOD SPECIMEN / Unknown Lab Venipuncture / Unknown 03/22/2022 6:30 AM CDT 03/22/2022 7:14 AM CDT Suman Jones MD LAB - BLOOD BANK ORD ERABLES [facility] 1 [place], [place] [address] * (ABNORMAL) MRSA + SA DNA PCR PANEL (03/15/2022 2:09 PM CDT) Pathologist [facility] MRSA DNA by PCR Positive(A [...] Jones MD LAB - MICROBIOLOGY O RDERABLES [facility] 1 [place] [address], [facility] * URINALYSIS REFLEX MICROSCOPIC REFLEX CULTURE (03/15/2022 [...] 03/15/2022 2:31 PM CDT [facility] Specific [place] UA 1.013 1.005 - 1.030 03/15/2022 2:31 [...] microscopy not indicated 03/15/2022 2:31 PM CDT [facility] Reflex Status Culture not indicated 03/15/2022 2:31 PM CDT [facility] Urine URINE SPECIMEN OBTAINED BY CLEAN CATCH PROCEDURE / Unknown Collection / Unknown 03/15/2022 2:09 PM CDT 03/15/2022 2:16 PM CDT Narrative [facility] - 03/15/2022 2:31 PM CDT Ascorbic Acid can cause false negative urine strip tests for blood, glucose, nitrite, and bilirubin. Suman Jones MD LAB - URINALYSIS ORD ERABLES Performing Organization Address [facility]/ZIP Co de Phone Number [facility] [address] * TYPE + SCREEN PANEL (03/15/2022 2:09 PM CDT) ABO Rh O NEG 03/15/2022 3:28 PM CDT [facility] Antibody Screen NEG 3:28 PM CDT [facility] Blood Bank BLOOD SPECIMEN / Unknown Venipuncture / Unknown 03/15/2022 2:09 PM CDT 03/15/2022 2:16 PM CDT Suman Jones MD LAB - BLOOD BANK ORD ERABLES Performing Organization Address [facility] Co de Phone Number [facility] [address] * PHOSPHORUS BLOOD (02/21/2022 4:44 PM CDT) Only the most recent of5 resultswithin the time period is included. Phosphorus 3.7 2.3 - 4.7 mg/dL 02/21/2022 5:16 PM CDT [facility] Blood BLOOD SPECIMEN / Unknown Lab Venipuncture / Unknown 02/21/2022 4:44 PM CDT 02/21/2022 4:49 PM CDT Araceli Griggs APRN-PIECER UP LAB - CHEMISTRY OR DERABLES Performing Organization Address City/[facility]/ZIP Co de Phone Number [facility] [address] * MAGNESIUM BLOOD (02/21/2022 4:44 PM CDT) Only the most recent of5 resultswithin the time period is included. Magnesium 1.9 1.6 - 2.6 mg/dL 02/21/2022 5:16 PM CDT [facility] Blood BLOOD SPECIMEN / Unknown Lab Venipuncture / Unknown 02/21/2022 4:44 PM CDT 02/21/2022 4:49 PM CDT Araceli Indu [facility] - CHEMISTRY OR DERABLES Performing Organization Address [facility] de Phone Number [facility] [address] * ALKALINE PHOSPHATASE BLOOD BONE SPECIFIC (12/22/2021 2:47 PM GLASSWARE ENGRAVER) Only the most recent of2 resultswithin the time period is included. Alkaline Phosphatase Bone Specific 14.8 ug/L 12/27/2021 2:40 PM GLASSWARE ENGRAVER [employer] ([facility]) Comment: INTERPRETIVE INFORMATION: Bone Specific Alkaline Phosphatase Premenopausal Female: 4.5 - 16.9 ug/L Postmenopausal Female: 7.0 - 22.4 ug/L INTERPRETIVE INFORMATION: Bone Specific Alkaline Phosphatase Liver alkaline phosphatase can affect the measurement of bone specific alkaline phosphatase in this assay. Each 100 U/L of liver alkaline phosphatase contributes an additional 2.5 to 5.8 ug/L to the bone specific alkaline phosphatase result. Performed By: [employer] [address] [place] [address] Attacher: Yana Escamilla MD Blood BLOOD SPECIMEN / Unknown Lab Venipuncture / Unknown 12/22/2021 2:47 PM GLASSWARE ENGRAVER 12/22/2021 3:06 PM GLASSWARE ENGRAVER Araceli Indu [facility] - CHEMISTRY OR DERABLES Performing Organization Address [facility] Co de Phone Number [employer] [facility]) [address] [place] [address] * PTH INTACT (12/22/2021 2:47 PM GLASSWARE ENGRAVER) Only the most recent of2 resultswithin the time period is included. PTH Intact 51.2 15.0 - 103.3 pg/mL 12/22/2021 6:16 PM GLASSWARE ENGRAVER [facility] Blood BLOOD SPECIMEN / Unknown Lab Venipuncture / Unknown 12/22/2021 2:47 PM GLASSWARE ENGRAVER 12/22/2021 3:18 PM GLASSWARE ENGRAVER Araceli Griggs [facility] LAB - CHEMISTRY OR DERABLES [facility] [address] * VITAMIN D 25-HYDROXY (performed in house) (12/22/2021 2:47 PM GLASSWARE ENGRAVER) Only the most recent of4 resultswithin the time period is included. Vitamin D, 25 Hydroxy 36.1 30 - 100 ng/mL 12/22/2021 3:46 PM GLASSWARE ENGRAVER [facility] Blood BLOOD SPECIMEN / Unknown Lab Venipuncture / Unknown 12/22/2021 2:47 PM GLASSWARE ENGRAVER 12/22/2021 3:06 PM GLASSWARE ENGRAVER Narrative [facility] - 12/22/2021 3:46 PM GLASSWARE ENGRAVER Reference Values: The recommendation for 25-Hydroxy Vitamin [...] performed to confirm the result. Araceli Griggs [facility] LAB - CHEMISTRY OR DERABLES [facility] [address] * CALCIUM IONIZED BLOOD (12/22/2021 2:47 PM GLASSWARE ENGRAVER) Only the most recent of2 resultswithin the time period is included. Calcium Ionized 1.21 1.15 - 1.32 mmol/L 12/22/2021 3:13 PM GLASSWARE ENGRAVER [facility] pH 7.35 7.32 - 7.42 pH 12/22/2021 3:13 PM GLASSWARE ENGRAVER [facility] Blood BLOOD SPECIMEN / Unknown Lab Venipuncture / Unknown 12/22/2021 2:47 PM GLASSWARE ENGRAVER 12/22/2021 3:06 PM GLASSWARE ENGRAVER Araceli Griggs [employer]IOR [employer]GEANT-PIECER UP LAB - CHEMISTRY OR DERABLES [facility] [address] * XR CHEST 2 VWS [place] LAT [id number] (11/15/2021 2:28 PM GLASSWARE ENGRAVER) Only the most recent of3 resultswithin the time period is included. Anatomical Region Laterality Modality Chest Radiographic Chelsea ging 11/15/2021 2:31 PM GLASSWARE ENGRAVER Narrative 11/15/2021 2:31 PM GLASSWARE ENGRAVER PROCEDURE: XR CHEST 2VW 11/15/2021 2:31 PM [...] RDERABLES * CALCIUM BLOOD (11/15/2021 2:21 PM GLASSWARE ENGRAVER) Only the most recent of4 resultswithin the time period is included. Calcium 9.0 8.4 - 10.2 mg/dL 11/15/2021 3:35 PM GLASSWARE ENGRAVER [facility] Blood BLOOD SPECIMEN / Unknown Lab Venipuncture / Unknown 11/15/2021 2:21 PM GLASSWARE ENGRAVER 11/15/2021 3:14 PM GLASSWARE ENGRAVER Araceli Griggs [employer] SERGEANT-PIECER UP LAB - CHEMISTRY OR DERABLES [facility] [address] * XR RIBS UNILATERAL 2 VW RIGHT [id number] (05/20/2021 5:45 PM CDT) Anatomical Region Laterality [...] RDERABLES * XR ELBOW 3+ VW LEFT [id number] (05/20/2021 5:45 PM CDT) Anatomical Region Laterality [...] RDERABLES * XR WRIST 3+ VW RIGHT [id number] (05/20/2021 5:44 PM CDT) Anatomical Region Laterality [...] * (ABNORMAL) LIPID PROFILE (11/24/2020 11:51 AM [facility]) Only the most recent of4 resultswithin the time period is included. Cholesterol 216(H) <200 mg/dL 11/24/2020 1:19 PM [facility] Triglycerides 129 <150 mg/dL 11/24/2020 1:19 PM [facility] HDL Cholesterol 55 >40 mg/dL 1 1:19 PM [facility] Chol HDL Ratio 3.9 1.0 - 6.0 11/24/2020 1:19 PM [facility] LDL Calculated 135(H) 65 - 130 mg/dL 11/24/2020 1:19 PM [facility] VLDL Calculated 26 <=30 mg/dL 1:19 PM [facility] Blood BLOOD SPECIMEN / Unknown Venipuncture / Unknown 11/24/2020 11:51 AM GLASSWARE ENGRAVER 11/24/2020 11:51 AM [facility] - 11/24/2020 1:19 PM [facility] Lipid Profile Comment: CHOLESTEROL LEVEL..................CLINICAL INTERPRETATION LESS [...] Bola Carrillo MD LAB - [facility] Organization Address City/State/[facility] Co de Phone Number [facility] [address] * XR KNEE LEFT 4VW OR [...] ORDERABLES * XR LUMBAR SPINE 4+ VW [id number] (04/23/2020 4:17 PM CDT) Anatomical Region Laterality [...] No acute osseous process noted. Dayanna Yuan [employer] S[employer]IOR SERGEANT-PIECER UP DIAGNOSTI C IMAGING ORDERABLES * URINALYSIS - POCT (IP) BEAKER INTERFACE (04/23/2020 3:37 PM CDT) Color UA POCT Yellow Straw, Yellow, Light Yellow 04/23/2020 3:32 PM CDT [facility] Clarity UA POCT Clear Clear 0 3:32 PM CDT [facility] Specific [place] UA POCT <=1.005 1.005 - 1.030 04/23/2020 3:32 PM CDT [facility] pH UA POCT 5.5 5.0 - 8.5 pH 04/23/2020 3:32 PM CDT [facility] Protein UA POCT Negative Negative 0 3:32 PM CDT [facility] Blood UA POCT Negative Negative, Trace-lysed, Trace-intact 04/23/2020 3:32 PM CDT [facility] Leukocyte UA POCT Negative Negative 04/23/2020 3:32 PM CDT [facility] Nitrite UA POCT Negative Negative 0 3:32 PM CDT [facility] Glucose UA POCT Negative Negative 0 3:32 PM CDT [facility] Ketone UA POCT Negative Negative 04/23/2020 3:32 PM CDT [facility] Bilirubin UA POCT Negative Negative 04/23/2020 3:32 PM CDT [facility] Urobilinogen UA POCT 0.2 0.2 - 1.0 EU/dL 04/23/2020 3:32 PM CDT [facility] Urine URINE / Unknown 04/23/2020 3 :37 PM CDT 04/23/2020 3:32 PM CDT Dayanna Yuan APRN-PIECER UP LAB - POI NT OF CARE ORDERABLES Performing Organization Address [facility] Co de Phone Number [facility] [address] * URINALYSIS - POCT (IP) NOTIFICATION (04/23/2020 3:28 PM CDT) Comment Notification Label Only - See Separate Report 04/23/2020 4:30 PM CDT [facility] Urine URINE / Unknown 04/23/2020 3 :28 PM CDT 04/23/2020 3:28 PM CDT Dayanna Yuan APRN-PIECER UP LAB - URI NALYSIS ORDERABLES Performing Organization Address [facility] Co de Phone Number [facility] [address] * XR ANKLE LEFT 3VW OR [...] TO MICROSCOPIC NO CULTURE (01/16/2020 11:25 AM [facility]) Color UA Yellow Straw, Yellow 01/16/2020 12:07 PM [facility] Clarity UA Clear Clear 01/16/2020 12:07 PM [facility] Glucose UA Negative Negative 01/16/2020 12:07 PM [facility] Bilirubin UA Negative Negative 01/16/2020 12:07 PM [facility] Ketone UA Negative Negative 01/16/2020 12:07 PM [facility] Specific [place] UA 1.019 1.005 - 1.030 01/16/2020 12:07 PM [facility] Blood UA Negative Negative 01/16/2020 12:07 PM [facility] pH UA 6.0 5.0 - 8.0 pH 01/16/2020 12:07 PM [facility] Protein UA Negative Negative 01/16/2020 12:07 PM [facility] Urobilinogen UA Negative Negative mg/dL 01/16/2020 12:07 PM [facility] Nitrite UA Negative Negative 01/16/2020 12:07 PM [facility] Leukocyte UA Negative Negative 01/16/2020 12:07 PM [facility] Urine Microscopy Urine microscopy not indicated 01/16/2020 12:07 PM [facility] Urine URINE SPECIMEN OBTAINED BY CLEAN CATCH PROCEDURE / Unknown Collection / Unknown 01/16/2020 11:25 AM GLASSWARE ENGRAVER 01/16/2020 11:51 AM [facility] Narrative [facility] - 01/16/2020 12:07 PM GLASSWARE ENGRAVER Jeffrey Olivera MD LAB - URINALYSIS ORD MAGALIS [facility] [address] * HEPATITIS C ANTIBODY (12/11/2019 10:53 AM GLASSWARE ENGRAVER) Interpretation Hepatitis C Antibody MILTON Negative Negative 12/12/2019 10:59 AM GLASSWARE ENGRAVER [employer] ([facility]) Comment: INTERPRETIVE INFORMATION: Hepatitis C Virus Antibody [...] Antibody Index 0.05 IV 12/12/2019 10:59 AM GLASSWARE ENGRAVER [employer] ([facility]) Comment: Performed by [employer], [address] [place] [address] [email or web address], Jeremy Oneal MD, Lab. Director Blood BLOOD SPECIMEN / Unknown Lab Venipuncture / Unknown 12/11/2019 10:53 AM GLASSWARE ENGRAVER 12/11/2019 11:00 AM GLASSWARE ENGRAVER Bola Carrillo MD LAB - CHEMISTRY BARB WYLIE [employer] ([facility]) [address] * TSH (10/08/2019 9:53 AM GLASSWARE ENGRAVER) Only the most recent of3 resultswithin the time period is included. TSH 2.530 0.35 - 4.94 uIU/mL 10/08/2019 11:36 AM GLASSWARE ENGRAVER [facility] Blood BLOOD SPECIMEN / Unknown Lab Venipuncture / Unknown 10/08/2019 9:53 AM GLASSWARE ENGRAVER 10/08/2019 10:03 AM GLASSWARE ENGRAVER Bola Carrillo MD LAB - CHEMISTRY BARB WYLIE [facility] Organization Address City/State/ZIP Co de Phone Number [facility] [address] * [place] DEXA BONE DENSITY STUDY [id number] (07/02/2019 3:56 PM CDT) Anatomical Region Laterality [...] * VAS VENOUS DUPLEX LOWER EXT BILATERAL [id number] (02/17/2019 1:50 PM CDT) Anatomical Region Laterality [...] color flow and spectral doppler was performed. Bloa Carrillo MD VASCULAR LAB ORDERAB LES * ECHOCARDIOGRAM 2D WITH DOPPLER (AKA ECHO CONSULT) (02/17/2019 12:00 AM CDT) 02/17/2019 Narrative [facility] - 02/17/2019 4:57 PM CDT [facility] [address] [place], [place] [id number] Transthoracic Echocardiogram 2D, M-mode, Doppler, and Color Doppler Patient: JOANIE GALAN MR #: [id number] : 1955 Age: 63 years Gender: Female Study date: 17-Feb-2019 Status: Outpatient Room: - Height: 61.8 in Weight: 187 lb BSA: 1.86 m-sq Referring Physician: Bola Carrillo MD Teacher Of The Sight Impaired: Josue Schaffer MD [facility] Grain Sampler: Crow Tello RDCS Summary: - Clinical question: [...] MV A Santosh: 1 m/s MV Dec Jennings: 5 m/s2 MV DecT: 210.5 ms MV E Santosh: 1.1 m/s MV E/A Ratio: 1 MV PHT: 62.9 ms MVA By PHT: 3.5 cm2 PV Vmax: 0.8 m/s PV maxP.5 mmHg RAP: 3 mmHg RVSP: 15.1 mmHg HR: 55.9 BPM All images and data generated for this procedure were personally reviewed by me. Prepared and Electronically Authenticated Josue Schaffer MD [facility] 17-Feb-2019 16:57:24 Procedure Note Unknown, Provider, MD - 02/17/[address] [address] Transthoracic Echocardiogram 2D, M-mode, Doppler, and Color Doppler Patient: JOANIE GALAN MR #: [id number] : 1955 Age: 63 years Gender: Female Study date: 17-Feb-2019 Status: Outpatient Room: - Height: 61.8 in Weight: 187 lb BSA: 1.86 m-sq Referring Physician: Bola Carrillo MD Teacher Of The Sight Impaired: Josue Schaffer MD [facility] Grain Sampler: Crow Tello [facility] Summary: - Clinical question: R06.00 DYSPNEA - [...] transthoracic approach was used. The study included [id number] imaging, M-mode, complete spectral Doppler, and color [...] MV A Santosh: 1 m/s MV Dec Jennings: 5 m/s2 MV DecT: 210.5 ms MV E Santosh: 1.1 m/s MV E/A Ratio: 1 MV PHT: 62.9 ms MVA By PHT: 3.5 cm2 PV Vmax: 0.8 m/s PV maxP.5 mmHg RAP: 3 mmHg RVSP: 15.1 mmHg HR: 55.9 BPM All images and data generated for this procedure were personally reviewedby mo. Prepared and Electronically Authenticated Josue Schaffer MD [facility] 17-Feb-2019 16:57:24 Bola Carrillo MD ECHO ORDERABLES [facility] * HEMOGLOBIN A1C (02/14/2019 2:40 PM CDT) Only the most recent of2 resultswithin the time period is included. Hemoglobin A1c 5.4 4.2 - 5.6 % 02/14/2019 5:00 PM CDT [facility] Estimated Average Glucose 108 mg/dL 02/14/2019 5:00 PM CDT [facility] Blood BLOOD SPECIMEN WITH EDTA / Unknown Venipuncture / Unknown 02/14/2019 2:40 PM CDT 02/14/2019 2:40 PM CDT Narrative [facility] - 02/14/2019 5:00 PM CDT The following cutoff levels are recommended by [place] [employer]. A1c > 6.5% : considered [...] Mariely Coelho MD LAB - CHEMISTRY ORDERABLES [facility] [address] * [place] [id number] (01/28/2019 4:45 PM CDT) Anatomical Region Laterality [...] XR CHEST 1VW PORTABLE (01/18/2019 12:51 PM GLASSWARE ENGRAVER) Anatomical Region Laterality Modality Chest Radiographic Chelsea ging 01/18/2019 1:01 PM GLASSWARE ENGRAVER Impressions 01/18/2019 1:02 PM GLASSWARE ENGRAVER No acute cardiopulmonary disease Narrative 01/18/2019 1:02 PM GLASSWARE ENGRAVER EXAM: XR CHEST 1VW PORTABLE AT 11:15 [...] IMPRESSION No acute cardiopulmonary disease Maine Whitley [facility] DIAGNOSTIC IM AGING ORDERABLES * EKG 12-LEAD (01/18/2019 12:35 PM GLASSWARE ENGRAVER) Ventricular Rate 55 BPM [facility] Atrial Rate 55 BPM [facility] P-R Interval 132 ms [facility] QRS Duration ms 90 ms [facility] Q-T Interval ms 414 ms [facility] QTC Calculation (Bezet) 396 ms [facility] M[facility] Calculated P [place] 43 degrees [facility] MUSE Calculated R [place] 5 degrees [facility] Calculated T [place] 31 degrees [facility] MUSE Interpretation EKG SINUS BRADYCARDIA OTHERWISE NORMAL ECG NO PREVIOUS ECGS AVAILABLE Confirmed by JULIA DE LA TORRE, LOLI ([id number]), primer expeditor and drier VENTURA BLAISE ([id number]) on 01/20/2019 1:22:26 PM [facility] MUSE 01/18/2019 12:3 5 PM GLASSWARE ENGRAVER 01/20/2019 1:22 PM CDT Maine Whitley [facility] ECG ORDERABLE S [facility] * B-TYPE NATRIURETIC PEPTIDE (01/18/2019 12:19 PM GLASSWARE ENGRAVER) BNP 51 10 - 100 pg/mL 01/18/2019 12:46 PM GLASSWARE ENGRAVER [facility] Blood BLOOD SPECIMEN / Unknown Lab Venipuncture / Unknown 01/18/2019 12:19 PM GLASSWARE ENGRAVER 01/18/2019 12:22 PM GLASSWARE ENGRAVER Maine Whitley [facility] LAB - OVEN ATTENDANT RY ORDERABLES [facility] [address] * (ABNORMAL) URINE MICROSCOPIC ONLY REFLEX TO CULTURE (01/18/2019 12:12 PM GLASSWARE ENGRAVER) Only the most recent of2 resultswithin the time period is included. Reflex Status Culture not indicated 01/18/2019 12:27 PM GLASSWARE ENGRAVER [facility] RBC UA 0-2 None Seen, 0-2, 3-5 # /hpf 01/18/2019 12:27 PM GLASSWARE ENGRAVER [facility] WBC UA 0-5 None Seen, 0-5 # /hpf 01/18/2019 12:27 PM GLASSWARE ENGRAVER [facility] Bacteria UA None Seen None Seen 01/18/2019 12:27 PM GLASSWARE ENGRAVER [facility] Squamous Epithelial Cells 0-2 None Seen, 0-2, 3-5 /hpf 01/18/2019 12:27 PM [facility] Hyaline Casts 3-5(A) None Seen, 0-2 # /lpf 01/18/2019 12:27 PM GLASSWARE ENGRAVER [facility] Urine URINE SPECIMEN OBTAINED BY CLEAN CATCH PROCEDURE / Unknown Collection / Unknown 01/18/2019 12:12 PM GLASSWARE ENGRAVER 01/18/2019 12:15 PM GLASSWARE ENGRAVER Narrative [facility] - 01/18/2019 12:27 PM GLASSWARE ENGRAVER Maine Whitley [employer] FORCES SENIOR SERGEANT-PIECER UP LAB - URINALY SIS ORDERABLES [facility] [address] * CT BRAIN WO CONTRAST [id number] (01/09/2019 12:10 PM GLASSWARE ENGRAVER) Anatomical Region Laterality Modality Head Computed Tomogra phy 01/09/2019 1:23 PM GLASSWARE ENGRAVER Impressions 01/09/2019 1:28 PM GLASSWARE ENGRAVER Negative noncontrast head CT. Narrative 01/09/2019 1:28 PM GLASSWARE ENGRAVER PROCEDURE: CT HEAD WO CONTRAST 01/09/2019 1:23 [...] ABUSE URINE SCREEN 10 (01/08/2019 9:30 PM [facility]) Pathologist [facility] Amphetamines Screen Urine Positive(A) Negative 01/08/2019 9:52 PM [facility] Barbiturates Screen Urine Negative Negative 01/08/2019 9:52 PM [facility] Benzodiazepines Screen Urine Negative Negative 01/08/2019 9:52 PM [facility] Cannabinoids Screen Urine Negative Negative 01/08/2019 9:52 PM [facility] Cocaine Screen Urine Negative Negative 01/08/2019 9:52 PM [facility] Methadone Screen Urine Negative Negative 01/08/2019 9:52 PM [facility] Opiate Screen Urine Negative Negative 01/08/2019 9:52 PM [facility] Phencyclidine Screen Urine Negative Negative 01/08/2019 9:52 PM [facility] Tricyclics Screen Urine Negative Negative 01/08/2019 9:52 PM [facility] Methamphetamine Screen Urine Negative Negative 01/08/2019 9:52 PM [facility] Buprenorphine Screen Urine Negative Negative 01/08/2019 9:52 PM [facility] Oxycodone Screen Urine Negative Negative 01/08/2019 9:52 PM [facility] Propoxyphene Screen Urine Negative Negative 01/08/2019 9:52 PM [facility] Urine URINE / Unknown Collection / Unknown 01/08/2019 9:30 PM [facility] 01/08/2019 9:40 PM [facility] - 01/08/2019 9:52 PM GLASSWARE ENGRAVER This is a presumptive/unconfirmed test for medical [...] URINE CHEMISTR Y ORDERABLES Performing Organization Address [facility] de Phone Number [facility] [address] * CULTURE URINE (01/08/2019 9:30 PM GLASSWARE ENGRAVER) Pathologist [facility] Culture Urine Light growth normal skin/urogen ital edilma SOUTH 01/10/2019 6:37 AM GLASSWARE ENGRAVER [facility] Urine URINE SPECIMEN OBTAINED BY CLEAN CATCH PROCEDURE / Unknown Collection / Unknown 01/08/2019 9:30 PM GLASSWARE ENGRAVER 01/08/2019 9:40 PM GLASSWARE ENGRAVER Kaylah Morrissey MD LAB - MICROBIOLOGY O RDERABLES Performing Organization Address [facility] de Phone Number [facility] [address] * ALCOHOL ETHYL BLOOD (01/08/2019 9:12 PM GLASSWARE ENGRAVER) Ethanol <10.0 <10 mg/dL 01/08/2019 9:3 7 PM GLASSWARE ENGRAVER [facility] Blood BLOOD SPECIMEN / Unknown Lab Venipuncture / Unknown 01/08/2019 9:12 PM GLASSWARE ENGRAVER 01/08/2019 9:14 PM GLASSWARE ENGRAVER [facility] - 01/08/2019 9:37 PM GLASSWARE ENGRAVER Obtain if suspected ingestion or if patient demonstrates harmful ideation, harmful behavior or psychosis. Kaylah Morrissey MD LAB - CHEMISTRY ORDAlex WYLIE Performing Organization Address [facility] de Phone Number [facility] [address] * (ABNORMAL) SALICYLATE LEVEL BLOOD (01/08/2019 9:12 PM GLASSWARE ENGRAVER) Salicylate <5.0(L) 15.0 - 30.0 mg/dL 01/08/2019 9:46 PM [facility] Blood BLOOD SPECIMEN / Unknown Lab Venipuncture / Unknown 01/08/2019 9:12 PM GLASSWARE ENGRAVER 01/08/2019 9:15 PM GLASSWARE ENGRAVER [facility] - 01/08/2019 9:46 PM GLASSWARE ENGRAVER Obtain if suspected ingestion or overdose. Kaylah Morrissey MD LAB - CHEMISTRY BARB WYLIE Performing Organization Address [facility] de Phone Number [facility] [address] * (ABNORMAL) ACETAMINOPHEN LEVEL (01/08/2019 9:12 PM GLASSWARE ENGRAVER) Acetaminophen <0.6(L) 10.0 - 30.0 ug/mL 01/08/2019 9:46 PM GLASSWARE ENGRAVER [facility] Blood BLOOD SPECIMEN / Unknown Lab Venipuncture / Unknown 01/08/2019 9:12 PM GLASSWARE ENGRAVER 01/08/2019 9:15 PM GLASSWARE ENGRAVER Narrative [facility] - 01/08/2019 9:46 PM GLASSWARE ENGRAVER Obtain if suspected ingestion or overdose. Kaylah Morrissey MD LAB - CHEMISTRY BARB WYLIE [facility] [address] Care Teams Orthotist Prosthetist Relationship Specialty Start Date End Date Duy Newman MD [address] [place] [id number] PCP - General Family Medicine 03/15/22
--- OUTSIDE RECORDS SUMMARY | 2025-01-17 12:56 | XMS_ITS | Clinical Summary ---
Author Organization [facility] Address [address] [place] [address] Care Team Providers Care Crate Tier Name Role Phone Duy Newman MD Primary Care Provider [phone] Source Comments [facility],non-owned Affiliates and Associated Physician Practices is amultiple site organization consisting of ambulatory clinics and hospital sitesin [place], [place], [place] and [place]. This disclosure is being madepursuant to the Care Everywhere program and may not contain all information available regarding this patient. Last updated 18.[facility] Allergies Active Allergy Reactions Criticality Noted Date Comments Latex Rash Medium 08/08/2018 Vilazodone Hcl Swelling 07/01/2020 Alprazolam Shortness of Breath,Vision Changes High 0 02/28/2019 rash Zyprexa Swelling 03/26/2019 Medications * Be aware that medications may not be up to date on this document. Alwaysverify current medications with the patient. 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 Essential hypertension 05/09/2019 Hyperlipidemia 05/09/2019 Migraine without [...] 19 Immunizations Name Administration Dates Next Due Uplike primary monoval ent 12+ yr 0.3mL Purple [...] of 2) 2006 MAMMOGRAM 08/04/2022 08/04/2020, 07/02/2019 MEDICARE AWV 12 MONTHS 11/15/2022 11/15/2021, 07/01/2020 PNEUMOCOCCAL VACCINE 50+ (2 of 2 - PPSV23) 11/15/2022 11/15/2021 COVID-19 VACCINE ( - season) 2024 09/14/2021, 02/02/2021, 01/12/2021 INFLUENZA [...] this topic Medical Devices Implanted Type Area Vest Backer Device Identifier Shelf Expiration Date Model / Serial / Lot Cmnt Bone Plc Mv+G Gnta 40gm Med Vsc Implanted:Qty: 1 on 03/22/2022 by Suman Jones MD at [facility] Left: Knee Heraeus Kulzer Jelenko 08/11/2024 [id number] / / [id number] Cmnt Bone Plc Mv+G Gnta 40gm Med Vsc Implanted:Qty: 1 on 03/22/2022 by Suman Jones MD at [facility] Left: Knee Heraeus Kulzer Jelenko 09/11/2023 [id number] / / [id number] Cmpnt Fem Kn Lt 4 Post Stab Gns2 Legion Implanted:Qty: 1 on 03/22/2022 by Suman Jones MD at [facility] Left: Knee [employer] 02/07/2032 [id number] / / [id number] Bsplt Tib Legion 4 Kn Lt Cmnt M Tpr Ti Implanted:Qty: 1 [facility] Left: Knee [employer] 12/09/2031 [id number] / / [id number] Cmpnt Ptlr 26mm Rsrfc Journey Lck Gns2 Implanted:Qty: 1 on 03/22/2022 by Suman Jones MD at [facility] Left: Knee [employer] 10/19/2031 [id number] / / [id number] Ins Tib 3-4 10mm Kn Xlpe Post Stab Hi Implanted:Qty: 1 on 03/22/2022 by Suman Jones MD at [facility] Left: Knee [employer] 04/15/2027 [id number] / / [id number] Explanted Type Area Vest Backer Device Identifier Shelf Expiration Date Model / Serial / Lot Pin Fx 65mm Spd Strl Explanted:Qty: 1 on 03/22/2022 at [facility] Left: Knee [employer] [id number] / / Pin Fx 30mm Spd Rim Strl Explanted:Qty: 1 [facility] Left: Knee [employer] [id number] / / Procedures Procedure Name Priority Date/Time Associated Diagnosis Comments RENAL FUNCTION PANEL AM Draw 03/25/2022 6:25 AM CDT MAMMO BILAT SCREENING Routine 08/04/2020 3:03 PM CDT Breast cancer screening HEPATITIS C ANTIBODY Routine 12/11/2019 10:53 AM AED TRAINER Need for influenza vaccination DEXA BONE DENSITY AXIAL SKELETON Routine 07/02/2019 3:56 PM CDT Postmenopausal from Last 3 Months or Most Recently Relevant to Health Maintenance Results * (ABNORMAL) RENAL FUNCTION PANEL (03/25/2022 6:25 AM CDT) [facility] [address] Glucose 99 70 - 125 mg/dL 03/25/2022 7:00 AM CDT [facility] Sodium 136 136 - 145 mmol/L 03/25/2022 7:00 AM T [facility] Potassium 5.5(H) 3.4 - 5.1 mmol/L 03/25/2022 7:00 AM T [facility] Chloride 104 98 - 107 mmol/L 03/25/2022 7:00 AM T [facility] CO2 23 22 - 29 mmol/L 03/25/2022 7:00 AM T [facility] Calcium 8.66 8.4 - 10.2 mg/dL 03/25/2022 7:00 AM T [facility] Anion Gap 15 10 - 20 mmol/L 03/25/2022 7:00 AM T [facility] BUN 28.0(H) 9.8 - 20.1 mg/dL 03/25/2022 7:00 AM T [facility] Creatinine 1.12(H) 0.57 - 1.11 mg/dL 03/25/2022 7:00 AM T [facility] Albumin 2.9(L) 3.5 - 5.0 gm/dL 03/25/2022 7:00 AM T [facility] Phosphorus 3.06 2.3 - 4.7 mg/dL 03/25/2022 7:00 AM T [facility] eGFR by MDRD 49(L) >60 mL/min/1.7 3m2 03/25/2022 7:00 AM T [facility] eGFR by MDRD 59(L) >60 mL/min/1.7 3m2 03/25/2022 7:00 AM T [facility] Blood BLOOD SPECIMEN / Unknown Lab Venipuncture / Unknown 03/25/2022 6:25 AM CDT 03/25/2022 6:38 AM CDT Juan Alberto Mccormick MD LAB - CHEMISTR Y ORDERABLES [facility] [address] [place], [place] [address] * MAMMO BILAT SCREENING (08/04/2020 3:03 [...] * HEPATITIS C ANTIBODY (12/11/2019 10:53 AM AED TRAINER) Interpretation Hepatitis C Antibody MILTON Negative Negative 12/12/2019 10:59 AM AED TRAINER [facility] ([facility]) Comment: INTERPRETIVE INFORMATION: Hepatitis C Virus Antibody [...] Antibody Index 0.05 IV 12/12/2019 10:59 AM AED TRAINER [facility] ([facility]) Comment: Performed by [employer], [address] [place], [place] [id number] [email or web address], Jeremy Oneal MD, Lab. Director Blood BLOOD SPECIMEN / Unknown Lab Venipuncture / Unknown 12/11/2019 10:53 AM AED TRAINER 12/11/2019 11:00 AM AED TRAINER Bola Carrillo MD LAB - CHEMISTRY BARB WYLIE [facility] ([facility]) [address] [place] [address], [facility] * DEXA BONE DENSITY STUDY [id number] (07/02/2019 3:56 PM CDT) Anatomical Region Laterality [...] 2:21 PM 01/13/2019 11:58 AM Care Teams Crate Tier Relationship Specialty Start Date End Date Duy Newman MD [address] [place] [id number] PCP - General Family Medicine 03/15/22
[2025-01-17 13:27] LABS: Alanine Aminotransferase 28 U/L (6-35); Albumin Level 4.6 g/dL (3.5-5.1); Alkaline Phosphatase 100 U/L (38-126); Anion Gap 12 mmol/L (4-12); Aspartate Amino Transferase 28 U/L (14-36); Bilirubin,Total 0.7 mg/dL (0.2-1.3); Blood Urea Nitrogen 34 mg/dL (7-17); Calcium 9.2 mg/dL (8.4-10.2); Carbon Dioxide 24 mmol/L (22-30); Chloride 107 mmol/L (98-107); Estimated Glomerular Filt Rate 48; Glucose 96 mg/dL (65-110); Magnesium 2.2 mg/dL (1.6-2.3); Phosphorus 3.4 mg/dL (2.5-4.5); Potassium 4.3 mmol/L (3.4-5.0); Sodium 143 mmol/L (137-145)
== END 2025-01-17 12:53 | disposition home or self-care (01) ==
LOC: ANHLAB 12:55
PROVIDERS: PCP Family Medicine; Visit Provider Nurse Practitioner Family
DX: R94.4 Abnormal results of kidney function studies (principal); M81.0 Age-related osteoporosis without current pathological fracture
CPT/HCPCS: 36415; 80053; 83735; 84100

== ENCOUNTER 2025-02-21 11:05 | Outpatient (CLI) | payer MEDICARE, SELFPAY ==
--- OUTSIDE RECORDS SUMMARY | 2025-02-21 11:09 | XMS_ITS | Encounter Summary ---
Author Organization [facility] Address [address] [place] [address] Care Team Providers Care Dye Weigher Helper Name Role Phone Duy Newman MD Primary Care Provider [phone] Encounter Details Date Type Department Care Team (Late st Contact Info) Description 02/20/2025 Orders Only [facility] - Nephrology [address], [address] [place] [address] Yolanda Rendon LPN Social History Tobacco Use Types Packs/Day Years Used Date Smoking Tobacco: Former Cigarettes 0.3 15 0 11/12/1995 - 11/12/2010 Smokeless Tobacco: Never Alcohol Use Standard Drinks/Week Comments No 0 [...] money to get more. Never true 03/23/2022 Comments No Sex and Gender Information Value Date Recorded Sex Assigned at Not on file Legal Sex Female 8:15 AM TURN LASTER Gender Identity Not on file Sexual Orientation Not on file documented as of this encounter Functional Status * Is person deaf or have serious hearing difficulty? Answer Date of Assessment Author No 03/22/2022 1:24 PM CDT Prakash Talavera RN * Is person blind or have serious difficulty seeing? Answer Date of Assessment Author No 03/22/2022 1:24 PM CDT Prakash Talavera RN * Does person have serious difficulty walking/climbing stairs? Answer Date of Assessment Author No 03/22/2022 1:24 PM CDT Prakash Talavera RN * Does person have difficulty dressing/bathing? Answer Date of Assessment Author No 03/22/2022 1:24 PM CDT Prakash Talavera RN * Does person have difficulty doing errands alone? Answer Date of Assessment Author No 03/22/2022 1:24 PM CDT Prakash Talavera RN documented as of this encounter Mental Status * Does person have difficulty concentrating/remembering/making decisions? Answer Entry Date Author No 03/22/2022 1:24 PM CDT Prakash Talavera RN documented in this encounter Plan of Treatment Upcoming Encounters Date Type Department Care Team (Late st Contact Info) Description 02/26/2025 2:30 PM CDT Office Visit [facility] - Nephrology [address], [address] [place] [address] Elsy Ewing, AGRONOMIST-GERIATRIC SOCIAL WORKER [address] [place] [address] documented as of this encounter Visit Diagnoses Not on filedocumented in this encounter Additional Health Concerns Infection Onset Date Last Indicated Resolved Time MRSA Comment:+ MRSA nares 03/15/22 03/15/2022 03/15/2022 documented as of this encounter Care Teams Dye Weigher Helper Relationship Specialty Start Date End Date Duy Newman MD [address] [place] [id number] PCP - General Family Medicine 03/15/22 documented as of this encounter
--- OUTSIDE RECORDS SUMMARY | 2025-02-21 11:09 | XMS_ITS | Clinical Summary ---
Author Organization [facility] Address [facility] [place] [address] Care Team Providers Care Drapery Operator Name Role Phone Srinivasan Cunha MD Primary Care Provider [phone] Medications No known medications Active Problems Problem Noted Date Diagnosed Date History of total left knee replacement 2 Family History Medical History Relation Comments Breast Cancer Sister Relation Status Comments Sister Social History Tobacco Use Types Packs/Day Years Used Date Smoking Tobacco: Never Assessed Comments Unknown Sex and Gender Information Value Date Recorded Sex Assigned at Not on file Legal Sex Female 6:36 PM MEDICAL OFFICE MANAGER Gender Identity Not on file Sexual Orientation Not on file Plan of Treatment Health Maintenance Due Date Last Done Comments Colorectal Cancer Screening Colonoscopy (10 Years) 1956 Hepatitis C 1974 Zoster Vaccines (1 of 2) 2006 Annual Medicare Wellness Visit 2021 Dexa Scan (General) 2021 Pneumococcal Vaccine: 65+ Years (2 of 2 - PPSV23 or PCV20) 11/15/2022 11/15/2021 COVID-19 Vaccine (4 - 2023-2 5 season) 2024 09/14/2021, 02/02/2021, 01/12/2021 Mammogram Screening 10/18/2025 10/18/2023 DTaP, Tdap and Td Vaccines ( 2 - Td or Tdap) 08/08/2028 08/08/2018 RSV Immunization or 60+ Years (1 - 1-dose 75+ series) 2031 Meningococcal B Vaccine Aged Out No l onger eligible based on patient's age to complete this topic Meningococcal Vaccine Aged Out No megan avery eligible based on patient's age to complete this topic RSV Immunizations Under 20 Months Aged Out No longer eligible b ased on patient's age to complete this topic Procedures Procedure Name Priority Date/Time Associated Diagnosis Comments MG SCREENING W SATURNINO HORACIO DIGI Routine 10/18/2023 2:35 PM MEDICAL OFFICE MANAGER Encounter for screening mammogram for malignant neoplasm of breast from Last 3 Months or Most Recently Relevant to Health Maintenance Results * MG SCREENING W SATURNINO HORACIO DIGI (10/18/2023 2:35 PM MEDICAL OFFICE MANAGER) Anatomical Region Laterality Modality Breast Bilateral Mammography 10/31/2023 8:29 AM MEDICAL OFFICE MANAGER Narrative 10/31/2023 8:32 AM MEDICAL OFFICE MANAGER IMAGING STUDIES: Bilateral screening mammograms with computer-aided [...] with computer aided detection. Ordered By: SRINIVASAN CUNHA Interpreted By: Liza Garcia, 10/31/2023 8:29 AM us Srinivasan Cunha MD MAMMO Final Result from Last 3 Months or Most Recently Relevant to Health Maintenance Insurance [place] [address] [place] [address] Care Teams Drapery Operator Relationship Specialty Start Date End Date Srinivasan Cunha MD [address] [place] [id number] PCP - General FAMILY PRACTICE 04/21/22
--- OUTSIDE RECORDS SUMMARY | 2025-02-21 11:10 | XMS_ITS | Clinical Summary ---
Author Organization [facility] [employer] Address [address] [place] [address] Care Team Providers Care Mining Engineer Name Role Phone Duy Newman MD Primary Care Provider [phone] Source Comments [facility] [employer],non-owned Affiliates and Associated Physician Practices is amultiple site organization consisting of ambulatory clinics and hospital sitesin [place], [place], [place] and [place]. This disclosure is being madepursuant to the Care Everywhere program and may not contain all information available regarding this patient. Last updated 18.[facility] [employer] Allergies Active Allergy Reactions Criticality Noted Date Comments Alendronic Acid Other 03/25/2022 Latex Rash Medium 08/08/2018 Vilazodone Hcl Swelling 07/01/2020 Alprazolam Shortness of Breath,Vision Changes High 0 02/28/2019 rash Zyprexa Swelling 03/26/2019 Medications * This document contains information received from the source organization and may not represent a complete record from that organization. * Be aware that medications may not be up to date on this document. Alwaysverify current medications with the patient. Multiple Vitamins-Calciu m (GNP ONE DAILY WOMENS HEALTH PO) Take 1 tablet by mouth once daily Active BIOTIN 5000 PO Take 5,000 mcg by mouth once daily Active Garlic 1000 MG Take 1,000 mg by mouth once daily Active calcium-vitamin D (CALTRATE PLUS D) 600-200 MG-UNIT tablet Take 1 (one) tablet by mouth 2 times daily 180 tablet 5 1 Active SUMAtriptan (IMITREX) 50 MG tablet TAKE 1 TABLET AT ONSET OF HEADACHE. MAY REPEAT IN 2 HOURS. NO MORE THAN 2/DAY. 9 tablet 5 2 Active citalopram (CELEXA) 20 MG tabletIndicatio ns:Generalized anxiety disorder,Depres trey, unspecified depression type Take 1 (one) tablet by mouth once daily 30 tablet 5 2 Active Additional Information Patient taking differently: 10 mgOral DAILY, Reported on 03/24/2022 topiramate (TOPAMAX) 50 MG tablet Take 1 (one) tablet by mouth once daily 90 tablet 1 2 Active Additional Information Patient taking differently:50 mg OralEVERY MORNING, Reported on 03/24/2022 amLODIPine (NORVASC) 5 MG tablet Take 1 (one) tablet by mouth once daily 90 tablet 1 2 Active Additional Information Patient taking differently:5 mg OralEVERY MORNING, Reported on 03/24/2022 famotidine (PEPCID) 40 MG tablet TAKE 1 TABLET BY MOUTH TWICE DAILY 30 tablet 5 2 Active Calcium-Magnesi um-Vitamin D (CALCIUM 1200+D3 PO) Take 2 tablets by mouth once daily Active vitamin D3 (CHOLECALCIFERO L) 25 MCG (1000 UNITS) tablet Take 1,000 Units by mouth once daily Active ascorbic acid (VITAMIN C) 500 MG tablet Take 500 mg by mouth once daily Active traMADol (ULTRAM) 50 MG tablet Take 2 (two) tablets by mouth 4 times daily 120 tablet 2 Active acetaminophen (TYLENOL) 325 MG tablet Take 2 (two) tablets by mouth every 6 hours as needed Maximum allowable Acetaminophen amount = 4 Grams (4000 mg) / 24 hours. 2 Active NARCAN 4 MG/0.1ML nasal spray 1 Active pravastatin (PRAVACHOL) 40 MG tablet TAKE 1 TABLET BY MOUTH EVERY AT BEDTIME 90 tablet 1 2 Active escitalopram (Lexapro) 10 MG tablet Take 1 (one) tablet by mouth once daily 3 Active rosuvastatin (Crestor) 20 MG tablet Take 1 (one) tablet by mouth once daily 3 Active losartan (Cozaar) 50 MG tablet Take 1 (one) tablet by mouth once daily 5 Active pantoprazole EC (Protonix) 40 MG tablet Take 1 (one) tablet by mouth every morning 5 Active sertraline (Zoloft) 50 MG tablet Take 1.5 (one and one-half) tablets by mouth once daily 5 Active triamterene-hyd roCHLOROthiazid e (Maxzide-25) 37.5-25 MG tablet Take 1 (one) tablet by mouth every morning 4 Active Active Problems Problem Noted Date Diagnosed Date Gastro-esophageal reflux disease without esophag itis 03/25/2022 Bilateral primary osteoarthritis of knee 022 Status post left knee replacement 03/22/2022 Class [...] affective disorder 10/08/2019 Overview (10/08/2019): 07.29.19 Chelsea Matthew [employer] 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 Essential hypertension 05/09/2019 Hyperlipidemia 05/09/2019 Migraine without [...] 01/09/2019 06/09/2019 Depressive disorder 12/30/2018 04/18/20 19 Encounters Date Type Department Care Team Description 02/20/2025 Orders Only [facility] - Nephrology [address] [place] [address], [address] [place] [address] Yolanda Rendon LPN from Last 3 Months Immunizations Immunization Administration Dates Next Due Covid Pfizer primary monoval ent 12+ yr 0.3mL Purple [...] on file Legal Sex Female 8:15 AM FISHER SWORDFISH Gender Identity Not on file Sexual Orientation [...] 03/22/2022 5:17 PM CDT Plan of Treatment Upcoming Encounters Date Type Department Care Team (Late st Contact Info) Description 02/26/2025 2:30 PM CDT Office Visit [facility] - Nephrology [address], [address] [place] [address] Elsy Ewing APRN-GEARMAN [address] [facility] [address] [place] [address] Health Maintenance Due Date Last Done Comments [...] ( - season) 2024 09/14/2021, 02/02/2021, 01/12/2021 MEDICARE AWV CALENDAR YEAR 2024 11/15/2021, 07/01/2020 SCREENING FOR DIABETES 03/25/2025 , 03/24/2022, 03/23/2022, Additional history exists INFLUENZA VACCINE (Season Ended) 2025 08/11/2021, 08/24/2020, 01/10/2019 DTAP/TDAP/TD VACCINES (2 - Td or Tdap) [...] complete this topic MENINGOCOCCAL (Group B) VACCINE SHARED DECISION-MAKING Aged Out No longer eligible based on patient's age to complete this topic MENINGOCOCCAL GROUPS A/C/Y/W VACCINE Aged Out No longer eligible based on patient's age to complete this topic Medical Devices Implanted Type Area Template Clerk Device Identifier Shelf Expiration Date Model / Serial / Lot Cmnt Bone Plc Mv+G Gnta 40gm Med Vsc Implanted:Qty: 1 on 03/22/2022 by Suman Jones MD at [facility] Patric Left: Knee Heraeus Kulzer [employer] 08/11/2024 [id number] / / [id number] Cmnt Bone Plc Mv+G Gnta 40gm Med Vsc Implanted:Qty: 1 on 03/22/2022 by Suman Jones MD at [facility] Pat[place] Left: Knee Heraeus Kulzer [employer] 09/11/2023 [id number] / / [id number] Cmpnt Fem Kn Lt 4 Post Stab Gns2 Legion Implanted:Qty: 1 on 03/22/2022 by Suman Jones MD at [facility] Left: Knee [employer] 02/07/2032 [id number] / / [id number] Bsplt Tib Legion 4 Kn Lt Cmnt M Tpr Ti Implanted:Qty: 1 on 03/22/2022 by Suman Jones MD at [facility] Left: Knee [employer] 12/09/2031 [id number] / / [id number] Cmpnt Ptlr 26mm Rsrfc Journey Lck Gns2 Implanted:Qty: 1 on 03/22/2022 by Suman Jones MD at [facility] Left: Knee [employer] 10/19/2031 [id number] / / [id number] Ins Tib 3-4 10mm Kn Xlpe Post Stab Hi Implanted:Qty: 1 on 03/22/2022 by Suman Jones MD at [facility] Left: Knee [employer] 04/15/2027 [id number] / / [id number] Explanted Type Area Template Clerk Device Identifier Shelf Expiration Date Model / Serial / Lot Pin Fx 65mm Spd Strl Explanted:Qty: 1 on 03/22/2022 at [facility] Pat[place] Left: Knee [employer] [id number] / / Pin Fx 30mm Spd Rim Strl Explanted:Qty: 1 on 03/22/2022 at [facility] Left: Knee [employer] [id number] / / Procedures Procedure Name Priority Date/Time Associated Diagnosis Comments RENAL FUNCTION PANEL AM Draw 03/25/2022 6:25 AM CDT MAMMO BILAT SCREENING Routine 08/04/2020 3:03 PM CDT Breast cancer screening HEPATITIS C ANTIBODY Routine 12/11/2019 10:53 AM FISHER SWORDFISH Need for influenza vaccination DEXA BONE DENSITY AXIAL SKELETON Routine 07/02/2019 3:56 PM CDT Postmenopausal from Last 3 Months or Most Recently Relevant to Health Maintenance Results * (ABNORMAL) RENAL FUNCTION PANEL (03/25/2022 6:25 AM CDT) Glucose 99 70 - 125 mg/dL 03/25/2022 7:00 AM CDT [facility] Sodium 136 136 - 145 mmol/L 03/25/2022 7:00 AM CDT [facility] Potassium 5.5(H) 3.4 - 5.1 mmol/L 03/25/2022 7:00 AM CDT [facility] Chloride 104 98 - 107 mmol/L 03/25/2022 7:00 AM CDT [facility] CO2 23 22 - 29 mmol/L 03/25/2022 7:00 AM CDT [facility] Calcium 8.66 8.4 - 10.2 mg/dL 03/25/2022 7:00 AM CDT [facility] Anion Gap 15 10 - 20 mmol/L 03/25/2022 7:00 AM CDT [facility] BUN 28.0(H) 9.8 - 20.1 mg/dL 03/25/2022 7:00 AM CDT [facility] Creatinine 1.12(H) 0.57 - 1.11 mg/dL 03/25/2022 7:00 AM CDT [facility] Albumin 2.9(L) 3.5 - 5.0 gm/dL 03/25/2022 7:00 AM CDT [facility] Phosphorus 3.06 2.3 - 4.7 mg/dL 03/25/2022 7:00 AM CDT [facility] eGFR by MDRD 49(L) >60 mL/min/1.7 2 03/25/2022 7:00 AM CDT [facility] eGFR by MDRD 59(L) >60 mL/min/1.7 3m2 03/25/2022 7:00 AM CDT [facility] Blood BLOOD SPECIMEN / Unknown Lab Venipuncture / Unknown 03/25/2022 6:25 AM CDT 03/25/2022 6:38 AM CDT Juan Alberto Mccormick MD LAB - CHEMISTRY ORDERA BLES Final Result Performing Organization Address City/State/[facility] de Phone Number [facility] [address] [place], [place] [address] * MAMMO BILAT SCREENING (08/04/2020 [...] has occurred. Bola Carrillo MD MAMMO ORDERABLES Final Result * HEPATITIS C ANTIBODY (12/11/2019 10:53 AM FISHER SWORDFISH) Interpretation Hepatitis C Antibody [place] Negative Negative 12/12/2019 10:59 AM FISHER SWORDFISH [facility] ([facility]) Comment: INTERPRETIVE INFORMATION: Hepatitis C Virus [...] Antibody Index 0.05 IV 12/12/2019 10:59 AM FISHER SWORDFISH [facility] ([facility]) Comment: Performed by [facility], [address] [place] [id number] [email or web address], Jeremy Oneal MD, Lab. Director Blood BLOOD SPECIMEN / Unknown Lab Venipuncture / Unknown 12/11/2019 10:53 AM FISHER SWORDFISH 12/11/2019 11:00 AM FISHER SWORDFISH us Bola Carrillo MD LAB - CHEMISTRY ORDERABLES Final Result [facility] ([facility]) [address] [place], [place] [address] * DEXA BONE DENSITY STUDY [id number] (07/02/2019 3:56 PM CDT) Anatomical Region Laterality [...] Major osteoporotic fracture 11.3% Hip fracture 2.1% us Bola Carrillo MD DEXA ORDERABLES Final Result from Last 3 Months or Most Recently Relevant to Health Maintenance Additional Health Concerns Infection Onset Date Last Indicated MRSA Comment:+ MRSA nares 03/15/22 03/15/2022 03/15/2022 Insurance MEDICAID - [place] MEDICARE [facility] MEDICAID - OUT OF CRITICAL ACCESS HOSPITAL [place] [facility] T[place] THIRD REPUBLICAN LIABILITY [employer] THIRD REPUBLICAN LIABILITY [place] - [place] Advance Directives * Full Code (Latest Code Status on File) Date Activated Date Inactivated Comments 03/22/2022 10:32 AM 03/25/2022 6:18 PM * Full Code Date Activated Date Inactivated Comments 01/09/2019 2:21 PM 01/13/2019 11:58 AM Care Teams Mining Engineer Relationship Specialty Start Date End Date Duy Newman MD [address] [place] [id number] PCP - General Family Medicine 03/15/22
[2025-02-21 11:45] LABS: Alanine Aminotransferase 23 U/L (6-35); Albumin Level 4.2 g/dL (3.5-5.1); Alkaline Phosphatase 91 U/L (38-126); Anion Gap 10 mmol/L (4-12); Aspartate Amino Transferase 25 U/L (14-36); Bilirubin,Total 0.5 mg/dL (0.2-1.3); Blood Urea Nitrogen 26 mg/dL (7-17); Calcium 9.5 mg/dL (8.4-10.2); Carbon Dioxide 24 mmol/L (22-30); Chloride 109 mmol/L (98-107); Estimated Glomerular Filt Rate 51; Glucose 87 mg/dL (65-110); Magnesium 1.9 mg/dL (1.6-2.3); Phosphorus 3.1 mg/dL (2.5-4.5); Potassium 3.8 mmol/L (3.4-5.0); Sodium 143 mmol/L (137-145)
[2025-02-21 12:46] LABS: Vitamin D 25 Hydroxy 67.6 ng/mL
== END 2025-02-21 11:06 | disposition home or self-care (01) ==
PROVIDERS: PCP Family Medicine; Visit Provider Nurse Practitioner Family
DX: M81.0 Age-related osteoporosis without current pathological fracture (principal); R94.4 Abnormal results of kidney function studies
CPT/HCPCS: 36415; 80053; 82306; 83735; 84100

== ENCOUNTER 2025-03-27 10:27 | Outpatient (CLI) | payer MEDICARE, SELFPAY ==
--- OUTSIDE RECORDS SUMMARY | 2025-03-27 10:30 | XMS_ITS | Clinical Summary ---
Author Organization [facility] Address [facility] [place] [address] Care Team Providers Care Passenger Elevator Operator Name Role Phone Srinivasan Cunha MD Primary Care Provider [phone] Medications No known medications Active Problems Problem [...] on file Legal Sex Female 6:36 PM ANTENNA ENGINEER Gender Identity Not on file Sexual Orientation Not on file Plan of Treatment Health Maintenance Due Date Last Done Comments Colorectal Cancer Screening Colonoscopy (10 Years) 1956 Hepatitis C 1974 Zoster Vaccines (1 of 2) 2006 Annual Medicare Wellness Visit 2021 Dexa Scan (General) 2021 Pneumococcal Vaccine: 50+ Years (2 of 2 - PPSV23) 11/15/2022 11/15/2021 COVID-19 Vaccine ( - 2023-2 5 season) 2024 09/14/2021, 02/02/2021, [...] SATURNINO HORACIO DIGI Routine 10/18/2023 2:35 PM ANTENNA ENGINEER Encounter for screening mammogram for malignant neoplasm of breast from Last 3 Months or Most Recently Relevant to Health Maintenance Results * MG SCREENING W SATURNINO HORACIO DIGI (10/18/2023 2:35 PM ANTENNA ENGINEER) Anatomical Region Laterality Modality Breast Bilateral Mammography 10/31/2023 8:29 AM ANTENNA ENGINEER Narrative 10/31/2023 8:32 AM ANTENNA ENGINEER IMAGING STUDIES: Bilateral screening mammograms with computer-aided [...] Recently Relevant to Health Maintenance Insurance [place] [address] Care Teams Passenger Elevator Operator Relationship Specialty Start Date End Date Srinivasan Cunha MD [address] [place] [id number] PCP - General FAMILY PRACTICE 04/21/22
--- OUTSIDE RECORDS SUMMARY | 2025-03-27 10:30 | XMS_ITS | Clinical Summary ---
Author Organization [facility] [employer] Address [address] [place] [address] Care Team Providers Care Applique Cutter Name Role Phone Duy Newman MD Primary Care Provider [phone] Elsy Ewing APRN-HYBRID POWERTRAIN DEVELOPMENT ENGINEER Unavailable + [phone] Source Comments [facility] [employer],non-owned Affiliates and Associated Physician Practices is amultiple site organization consisting of ambulatory clinics and hospital sitesin [place], [place], [place] and [place]. This disclosure is being madepursuant to the Care Everywhere program and may not contain all information available regarding this patient. Last updated 18.[facility] [employer] Allergies Active Allergy Reactions Criticality Noted Date [...] mouth 2 times daily 180 tablet 5 11/24/19 21 Active SUMAtriptan (IMITREX) 50 MG tablet TAKE 1 TABLET AT ONSET OF HEADACHE. MAY REPEAT IN 2 HOURS. NO MORE THAN 2/DAY. 9 tablet 5 11/15/19 22 Active topiramate (TOPAMAX) 50 MG tablet Take 1 (one) tablet by mouth once daily 90 tablet 1 11/25/19 22 Active amLODIPine (NORVASC) 5 MG tablet Take 1 (one) tablet by mouth once daily 90 tablet 11/25/19 22 Active famotidine (PEPCID) 40 MG tablet TAKE 1 TABLET BY MOUTH TWICE DAILY 30 tablet 5 12/21/19 22 Active Calcium-Magnesi um-Vitamin D (CALCIUM 1200+D3 PO) Take 2 tablets by mouth once daily Active vitamin D3 (CHOLECALCIFERO L) 25 MCG (1000 UNITS) tablet Take 1,000 Units by mouth once daily Active ascorbic acid (VITAMIN C) 500 MG tablet Take 500 mg by mouth once daily Active traMADol (ULTRAM) 50 MG tablet Take 2 (two) tablets by mouth 4 times daily 120 tablet 03/24/20 22 Active Additional Information Patient not taking.Reported on 02/26/2025 acetaminophen (TYLENOL) 325 MG tablet Take 2 (two) tablets by mouth every 6 hours as needed Maximum allowable Acetaminophen amount = 4 Grams (4000 mg) / 24 hours. 03/24/20 22 Active NARCAN 4 MG/0.1ML nasal spray 05/31/20 21 Active pravastatin (PRAVACHOL) 40 MG tablet TAKE 1 TABLET BY MOUTH EVERY AT BEDTIME 90 tablet 1 04/17/20 22 Active rosuvastatin (Crestor) 20 MG tablet Take 1 (one) tablet by mouth once daily 03/26/20 23 Active losartan (Cozaar) 50 MG tablet Take 1 (one) tablet by mouth once daily 12/29/19 25 Active pantoprazole EC (Protonix) 40 MG tablet Take 1 (one) tablet by mouth every morning 12/17/19 25 Active sertraline (Zoloft) 50 MG tablet Take 1.5 (one and one-half) tablets by mouth once daily 12/15/19 25 Active triamterene-hyd roCHLOROthiazid e (Maxzide-25) 37.5-25 MG tablet Take 1 (one) tablet by mouth every morning 07/16/20 24 Active citalopram (CELEXA) 20 MG tabletIndicatio ns:Generalized anxiety disorder,Depres trey, unspecified depression type Take 1 (one) tablet by mouth once daily 30 tablet 5 11/23/19 22 025 Discontin ued(List Clean-Up) escitalopram (Lexapro) 10 MG tablet Take 1 (one) tablet by mouth once daily 04/14/20 23 025 Discontin ued(Tx Complete) Active Problems Problem Noted Date Diagnosed Date [...] disorder 10/08/2019 Overview (10/08/2019): 07.29.19 Chelsea Castro IDENTIFICATION PRINTING MACHINE SETTER-HYBRID POWERTRAIN DEVELOPMENT ENGINEER Essential hypertension 05/09/2019 Hyperlipidemia 05/09/2019 Migraine without [...] Encounters Date Type Department Care Team Description 03/25/2025 Telephone [facility] - Nephrology [address] [place] [address], [address] [place] [address] Elsy Ewing APRN-YOLY Imaging Results 03/24/2025 2:30 PM CDT - 03/24/2025 11:59 PM CDT Hospital Encounter [facility] [address] [place] [address] Elsy Ewing, IDENTIFICATION PRINTING MACHINE SETTER-YOLY Discharge Disposition: Home or Self Care 03/24/2025 Travel 02/26/2025 2:30 PM CDT Office Visit [facility] - Nephrology [address] [facility], [address] [place] [address] Elsy Ewing, IDENTIFICATION PRINTING MACHINE SETTERZION Stage 3b chronic kidney disease (HCC) (Primary Dx); Hyperlipidemia, unspecified hyperlipidemia type; Essential hypertension 02/20/2025 Orders Only [facility] - Nephrology [address] [facility], [address] [place] [address] Yolanda Rendon LPN from Last 3 Months Immunizations Immunization Administration Dates Next Due [facility] primary monoval ent 12+ yr 0.3mL Purple [...] on file Legal Sex Female 8:15 AM 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 AGENTS SUPERVISOR Gender Identity Not on file Sexual Orientation Not on file Last Filed Vital Signs Vital Sign Reading Time Taken Comments Blood Pressure 122/79 02/26/2025 2:40 PM CDT Pulse 72 02/26/2025 2:40 PM CDT Temperature 36.4 C (97.5 F) 02/26/2025 2:40 PM CDT Respiratory Rate 18 02/26/2025 2:40 PM CDT Oxygen Saturation 97% 02/26/2025 2:40 PM CDT Inhaled Oxygen Concentration - - Weight 88 kg (194 lb) 02/26/2025 2:40 PM CDT Height 154.9 cm (5' 1 ) 02/26/2025 2:40 PM CDT Body Mass Index 36.66 02/26/2025 2:40 PM CDT Plan of Treatment Upcoming Encounters Date Type Department Care Team (Late st Contact Info) Description 05/28/2025 2:30 PM CDT Office Visit [facility] - Nephrology [address] [facility], [address] [place] [address] Elsy Ewing, IDENTIFICATION PRINTING MACHINE SETTER-HYBRID POWERTRAIN DEVELOPMENT ENGINEER [address] [facility] [address] [place] [address] Health Maintenance Due Date Last Done Comments COLOGUARD (AGES 45-75) - COLON CA SCREENING 1956 COLON MONITORING 1956 COLONOSCOPY - COLON CA SCREENING 1956 CT COLONOGRAPHY - COLON CA SCREENING 1956 Colorectal Cancer Screening 1956 FIT - COLON CA SCREENING 1956 FLEX SIG - COLON CA SCREENING 1956 ZOSTER VACCINE (1 of 2) 2006 PNEUMOCOCCAL VACCINE 50+ (2 of 2 - PPSV23) 11/15/2022 11/15/2021 COVID-19 VACCINE ( - season) 2024 09/14/2021, 02/02/2021, 01/12/2021 MEDICARE AWV CALENDAR YEAR 2024 11/15/2021, 07/01/2020 SCREENING FOR DIABETES 03/25/2025 , 03/24/2022, 03/23/2022, Additional history exists INFLUENZA VACCINE (Season Ended) 2025 08/11/2021, 08/24/2020, 01/10/2019 MAMMOGRAM 10/18/2025 10/18/2023, 05/2023, 08/04/2020, Additional history exists DTAP/TDAP/TD VACCINES (2 - [...] this topic Medical Devices Implanted Type Area Nurse Sane Device Identifier Shelf Expiration Date Model / Serial / Lot Cmnt Bone Plc Mv+G Gnta 40gm Med Vsc Implanted:Qty: 1 on 03/22/2022 by Suman Jones MD at [facility] Left: Knee Heraeus Kulzer Bhavana 08/11/2024 [id number] / / [id number] Cmnt Bone Plc Mv+G Gnta 40gm Med Vsc Implanted:Qty: 1 on 03/22/2022 by Suman Jones MD at [facility] [place] Left: Knee Tony Bateman 09/11/2023 [id number] / / [id number] Cmpnt Fem Kn Lt 4 Post Stab Gns2 Legion Implanted:Qty: 1 on 03/22/2022 by Suman Jones MD at [facility] [place] Left: Knee [employer] 02/07/2032 [id number] / / [id number] Bsplt Tib Legion 4 Kn Lt Cmnt M Tpr Ti Implanted:Qty: 1 on 03/22/2022 by Suman Jones MD at [facility] [place] Left: Knee [employer] 12/09/2031 [id number] / / [id number] Cmpnt Ptlr 26mm Rsrfc Journey Lck Gns2 Implanted:Qty: 1 on 03/22/2022 by Suman Jones MD at [facility] [place] Left: Knee [employer] 10/19/2031 [id number] / / [id number] Ins Tib 3-4 10mm Kn Xlpe Post Stab Hi Implanted:Qty: 1 on 03/22/2022 by Suman Jones MD at [facility] [place] Left: Knee [employer] 04/15/2027 [id number] / / [id number] Explanted Type Area Nurse Sane Device Identifier Shelf Expiration Date Model / Serial / Lot Pin Fx 65mm Spd Strl [facility] Knee [employer] [id number] / / Pin Fx 30mm Spd Rim Strl Explanted:Qty: [facility]: Knee [employer] [id number] / / Procedures Procedure Name Priority Date/Time Associated Diagnosis Comments US KIDNEYS W BLADDER Routine 03/24/2025 3:09 PM CDT Stage 3b chronic kidney disease (HCC) RENAL FUNCTION PANEL AM Draw 03/25/2022 6:25 AM CDT MAMMO BILAT SCREENING Routine 08/04/2020 3:03 PM CDT Breast cancer screening HEPATITIS C ANTIBODY Routine 12/11/2019 10:53 AM INSURANCE AGENTS SUPERVISOR Need for influenza vaccination DEXA BONE DENSITY AXIAL SKELETON Routine 07/02/2019 3:56 PM CDT Postmenopausal from Last 3 Months or Most Recently Relevant to Health Maintenance Results * US Kidneys W Bladder (03/24/2025 3:09 PM CDT) Anatomical Region Laterality Modality Abdomen Ultrasound 03/24/2025 4:53 PM CDT Impressions 03/24/2025 4:55 PM CDT IMPRESSION: No hydronephrosis. Unremarkable exam. > Interpreting Provider: Sanjiv Quiroz MD on 03/24/2025 4:55 PM Narrative 03/24/2025 4:55 PM CDT PROCEDURE: US KIDNEYS W BLADDER DATE/TIME OF EXAM: 03/24/2025 3:09 PM CLINICAL INFORMATION: None relevant/not provided if blank. Indication: N18.32: Stage 3b chronic kidney disease (HCC) Additional History: TECHNIQUE: Real-time ultrasound of the kidneys and bladder with DICOM image capture performed by electronics engineering technologist. FINDINGS: The kidneys are symmetric in size. No sonographically evident stone or hydronephrosis. The right kidney measures 10.2 x 4.9 x 3.8 cm and left kidney 8.7 x 4.2 x 5.3 cm. Urinary bladder is unremarkable. Prevoid bladder volume is 85 cc. No post void residual. Procedure Note Sanjiv Quiroz MD - 03/24/2025 PROCEDURE: US KIDNEYS W BLADDER DATE/TIME OF EXAM: 03/24/2025 3:09 PM CLINICAL INFORMATION: None relevant/not provided if blank. Indication: N18.32: Stage 3b chronic kidney disease (HCC) Additional History: TECHNIQUE: Real-time ultrasound of the kidneys and bladder with DICOMimage capture performed by electronics engineering technologist. FINDINGS: The kidneys are symmetric in size. No sonographically evident stone or hydronephrosis. The right kidney measures 10.2 x 4.9 x 3.8 cm and left kidney 8.7 x 4.2 x 5.3 cm. Urinary bladder is unremarkable. Prevoidbladder volume is 85 cc. No post void residual. IMPRESSION: No hydronephrosis. Unremarkable exam. > Interpreting Provider: Sanjiv Quiroz MD on 03/24/2025 4:55 PM us Elsy Ewing IDENTIFICATION PRINTING MACHINE SETTER-HYBRID POWERTRAIN DEVELOPMENT ENGINEER US ORDERABLES Final Result * (ABNORMAL) RENAL FUNCTION PANEL (03/25/2022 6:25 AM CDT) Pathologist [facility] Glucose 99 70 - 125 mg/dL 03/25/2022 [...] >60 mL/min/1.7 3m2 03/25/2022 7:00 AM CDT [facility] Blood BLOOD SPECIMEN / Unknown Lab Venipuncture / Unknown 03/25/2022 6:25 AM CDT 03/25/2022 6:38 AM CDT Juan Alberto Mccormick MD LAB - CHEMISTRY ORDERA BLES Final Result [facility] [address] [place], [place] [address] * MAMMO BILAT SCREENING (08/04/2020 3:03 PM [...] * HEPATITIS C ANTIBODY (12/11/2019 10:53 AM INSURANCE AGENTS SUPERVISOR) Interpretation Hepatitis C Antibody [place] Negative Negative 12/12/2019 10:59 AM INSURANCE AGENTS SUPERVISOR [employer] ([facility]) Comment: INTERPRETIVE INFORMATION: Hepatitis C [...] Antibody Index 0.05 IV 12/12/2019 10:59 AM INSURANCE AGENTS SUPERVISOR [employer] ([facility]) Comment: Performed by [employer], [address] [place] [id number] [email or web address], Jeremy Oneal MD, Lab. Director Blood BLOOD SPECIMEN / Unknown Lab Venipuncture / Unknown 12/11/2019 10:53 AM INSURANCE AGENTS SUPERVISOR 12/11/2019 11:00 AM INSURANCE AGENTS SUPERVISOR Bola Carrillo MD LAB - CHEMISTRY ORDERABLES Final Result Performing Organization Address City/State/[facility] Co de Phone Number [employer] ([facility]) [address] [place] [id number] * US DEXA BONE DENSITY STUDY [id number] (07/02/2019 3:56 PM CDT) Anatomical Region Laterality [...] fracture 2.1% Bola Carrillo MD DEXA ORDERABLES Final Result from Last 3 Months or Most Recently Relevant to Health Maintenance Additional Health Concerns Infection Onset Date Last Indicated MRSA Comment:+ MRSA nares 03/15/22 03/15/2022 03/15/2022 Insurance [place]ICAID - [place] [employer] MANAGED MEDICARE ADV MEDICARE [facility] MEDICAID - OUT OF STATE MEDICAID - [place] [facility] MANAGED MEDICARE ADV TPL THIRD CONSTITUTION PARTY LIABILITY [place]ID [place] Advance Directives * Full Code (Latest Code Status on File) Date Activated Date Inactivated Comments 03/22/2022 10:32 AM 03/25/2022 6:18 PM * Full Code Date Activated Date Inactivated Comments 01/09/2019 2:21 PM 01/13/2019 11:58 AM Care Teams Applique Cutter Relationship Specialty Start Date End Date Duy Newman MD [address] [place] [id number] PCP - General Family Medicine 03/15/22 Elsy Ewing APRN-HYBRID POWERTRAIN DEVELOPMENT ENGINEER [address] [id number] Nurse Practitioner Nurse Practitioner 02/26/25
[2025-03-27 11:31] LABS: Alanine Aminotransferase 39 U/L (6-35); Albumin Level 4.3 g/dL (3.5-5.1); Alkaline Phosphatase 112 U/L (38-126); Anion Gap 9 mmol/L (4-12); Aspartate Amino Transferase 38 U/L (14-36); Bilirubin,Total 0.6 mg/dL (0.2-1.3); Blood Urea Nitrogen 27 mg/dL (7-17); Calcium 9.5 mg/dL (8.4-10.2); Carbon Dioxide 24 mmol/L (22-30); Chloride 108 mmol/L (98-107); Estimated Glomerular Filt Rate 48; Glucose 92 mg/dL (65-110); Magnesium 1.9 mg/dL (1.6-2.3); Sodium 141 mmol/L (137-145)
== END 2025-03-27 10:28 | disposition home or self-care (01) ==
LOC: ANHLAB 10:29
PROVIDERS: PCP Family Medicine; Visit Provider Nurse Practitioner Family
DX: M81.0 Age-related osteoporosis without current pathological fracture (principal); R94.4 Abnormal results of kidney function studies
CPT/HCPCS: 36415; 80053; 83735; 84100

== ENCOUNTER 2025-04-25 11:23 | Outpatient (CLI) | payer MEDICARE, SELFPAY ==
--- OUTSIDE RECORDS SUMMARY | 2025-04-25 11:26 | XMS_ITS | Clinical Summary ---
Author Organization [facility] [employer] Address [address] [place] [address] Care Team Providers Care Atomic Welder Name Role Phone Duy Newman MD Primary Care Provider [phone] Elsy Ewing APRN-SCIENTIFIC INFORMATICS LEADER Unavailable [phone] Source Comments [facility],non-owned Affiliates and Associated Physician Practices is amultiple site organization consisting of ambulatory clinics and hospital sitesin [place], [place] and [place]. This disclosure is being madepursuant to the Care Everywhere program and may not contain all information available regarding this patient. Last updated 18.[facility] [employer] Allergies Active Allergy Reactions Criticality Noted Date [...] Alwaysverify current medications with the patient. Multiple Vitamins-Calci um (GNP ONE DAILY WOMENS HEALTH PO) Take 1 tablet by mouth once daily Active BIOTIN 5000 PO Take 5,000 mcg by mouth once daily Active Garlic 1000 MG Take 1,000 mg by mouth once daily Active calcium-vitami n D (CALTRATE PLUS D) 600-200 MG-UNIT tablet Take 1 (one) tablet by mouth 2 times daily 180 tablet 5 1 Active SUMAtriptan (IMITREX) 50 MG tablet TAKE 1 TABLET AT ONSET OF HEADACHE. MAY REPEAT IN 2 HOURS. NO MORE THAN 2/DAY. 9 tablet 5 2 Active topiramate (TOPAMAX) 50 MG tablet Take 1 (one) tablet by mouth once daily 90 tablet 1 2 Active amLODIPine (NORVASC) 5 MG tablet Take 1 (one) tablet by mouth once daily 90 tablet 1 2 Active famotidine (PEPCID) 40 MG tablet TAKE 1 TABLET BY MOUTH TWICE DAILY 30 tablet 5 2 Active Calcium-Magnes ium-Vitamin D (CALCIUM 1200+D3 PO) Take 2 tablets by mouth once daily Active vitamin D3 (CHOLECALCIFER OL) 25 MCG (1000 UNITS) tablet Take 1,000 Units by mouth once daily Active ascorbic acid (VITAMIN C) 500 MG tablet Take 500 mg by mouth once daily Active traMADol (ULTRAM) 50 MG tablet Take 2 (two) tablets by mouth 4 times daily 120 tablet 2 Active Additional Information Patient not taking.Reported on 02/26/2025 acetaminophen (TYLENOL) 325 MG tablet Take 2 (two) tablets by mouth every 6 hours as needed Maximum allowable Acetaminophen amount = 4 Grams (4000 mg) / 24 hours. 2 Active NARCAN 4 MG/0.1ML nasal spray 1 Active pravastatin (PRAVACHOL) 40 MG tablet TAKE 1 TABLET BY MOUTH EVERY AT BEDTIME 90 tablet 1 2 Active rosuvastatin (Crestor) 20 MG tablet Take [...] tablets by mouth once daily 5 Active triamterene-hy droCHLOROthiaz archana (Maxzide-25) 37.5-25 MG tablet Take 1 (one) [...] disorder 10/08/2019 Overview (10/08/2019): 07.29.19 Chelsea Matthew MEDINAN-SCIENTIFIC INFORMATICS LEADER Essential hypertension 05/09/2019 Hyperlipidemia 05/09/2019 Migraine without [...] Encounters Date Type Department Care Team Description 04/07/2025 Orders Only [facility] - Nephrology [address] [facility], [address] [place] [address] Elsy Ewing APRN-YOLY Stage 3b chronic kidney disease (HCC) 04/03/2025 12:30 PM CDT - 04/03/2025 11:59 PM CDT Hospital Encounter [facility] - Radiology [address] [place] [address] Suman Olvera MD Orthopedics Discharge Disposition: Home or Self Care 03/25/2025 Telephone [facility] - Nephrology [address] [facility], [address] [place] [address] Elsy Ewing APRN-CNP Imaging Results 03/24/2025 2:30 PM CDT - 03/24/2025 11:59 PM CDT Hospital Encounter [facility] [address] [place] [address] Elsy Ewing APRN-CNP Discharge Disposition: Home or Self Care 03/24/2025 Travel 02/26/2025 2:30 PM CDT Office Visit [facility] - Nephrology [address] [facility], [address] [place] [address] Elsy Ewing APRN-CNP Stage 3b chronic kidney disease (HCC) (Primary Dx); Hyperlipidemia, unspecified hyperlipidemia type; Essential hypertension 02/20/2025 Orders Only [facility] - Nephrology [address] [facility], [address] [place] [address] Yolanda Rendon LPN from Last 3 Months Immunizations Immunization Administration Dates Next Due QuantuModeling primary monoval ent 12+ yr 0.3mL Purple [...] on file Legal Sex Female 8:15 AM BIOINFORMATICS SUPPORT SPECIALIST Gender Identity Not on file Sexual Orientation [...] 2:40 PM CDT Height 154.9 cm (5' 1) 02/26/2025 2:40 PM CDT Body Mass Index 36.66 02/26/2025 2:40 PM CDT Plan of Treatment Upcoming Encounters Date Type Department Care Team (Late st Contact Info) Description 05/28/2025 2:30 PM CDT Office Visit [facility] - Nephrology [address] [facility], [address] [place] [address] Elsy Ewing APRN-SCIENTIFIC INFORMATICS LEADER [address] [facility] [address] [place] [address] Health Maintenance Due Date Last Done Comments [...] MEDICARE AWV CALENDAR YEAR 2024 11/15/2021, 07/01/2020 INFLUENZA VACCINE (Season Ended) 2025 08/11/2021, 08/24/2020, 01/10/2019 MAMMOGRAM 10/18/2025 10/18/2023, 05/2023, 08/04/2020, Additional history exists SCREENING FOR DIABETES 03/27/2028 , 03/25/2022, 03/24/2022, Additional history exists DTAP/TDAP/TD VACCINES (2 - [...] this topic Medical Devices Implanted Type Area Chlorination Operator Device Identifier Shelf Expiration Date Model / Serial / Lot Cmnt Bone Plc Mv+G Gnta 40gm Med Vsc Implanted:Qty: 1 on 03/22/2022 by Suman Olvera MD at [facility] Left: Knee Heraeus Kulzer Bhavana 08/11/2024 [id number] / / [id number] Cmnt Bone Plc Mv+G Gnta 40gm Med Vsc Implanted:Qty: 1 on 03/22/2022 by Suman Olvear MD at [facility] Left: Knee Tony Bateman 09/11/2023 [id number] / / [id number] Cmpnt Fem Kn Lt 4 Post Stab Gns2 Legion Implanted:Qty: 1 on 03/22/2022 by Suman Olvera MD at [facility] Left: Knee [employer] 02/07/2032 [id number] / / [id number] Bsplt Tib Legion 4 Kn Lt Cmnt M Tpr Ti Implanted:Qty: 1 on 03/22/2022 by Suman Olvera MD at [facility] Left: Knee [employer] 12/09/2031 [id number] / / [id number] Cmpnt Ptlr 26mm Rsrfc Journey Lck Gns2 Implanted:Qty: 1 on 03/22/2022 by Suman Olvera MD at [facility] Left: Knee [employer] 10/19/2031 [id number] / / [id number] Ins Tib 3-4 10mm Kn Xlpe Post Stab Hi Implanted:Qty: 1 on 03/22/2022 by Suman Olvera MD at [facility] Left: Knee [employer] 04/15/2027 [id number] / / [id number] Explanted Type Area Chlorination Operator Device Identifier Shelf Expiration Date Model / Serial / Lot Pin Fx 65mm Spd Strl [facility] Knee [employer] [id number] / / Pin Fx 30mm Spd Rim Strl Explanted:Qty: 1 on 03/22/2022 at [facility] Left: Knee [employer] [id number] / / Procedures Procedure Name Priority Date/Time Associated Diagnosis Comments XR KNEE LEFT 3VW Routine 04/03/2025 12:3 5 PM CDT Left knee pain, unspecified chronicity RENAL FUNCTION PANEL Routine 03/27/2025 Stage 3b chronic kidney disease (HCC) US KIDNEYS W BLADDER Routine 03/24/2025 3:09 PM CDT Stage 3b chronic kidney disease (HCC) MAMMO BILAT SCREENING Routine 08/04/2020 3:03 PM CDT Breast cancer screening HEPATITIS C ANTIBODY Routine 12/11/2019 10:53 AM BIOINFORMATICS SUPPORT SPECIALIST Need for influenza vaccination DEXA BONE DENSITY AXIAL SKELETON Routine 07/02/2019 3:56 PM CDT Postmenopausal from Last 3 Months or Most Recently Relevant to Health Maintenance Results * XR Knee Left 3Vw (04/03/2025 12:35 PM CDT) Anatomical Region Laterality Modality Lower Extremity Radiographic Chelsea ging 04/20/2025 9:55 AM CDT Impressions 04/20/2025 9:57 AM CDT Left knee arthroplasty with no evidence of complication. Decreased small joint effusion. THIS IS AN ELECTRONICALLY VERIFIED FINAL REPORT 04/20/2025 9:57 AM - Electronically signed by Canelo Whitley M.D. CH: SILVIANO Report ID: [id number] Reading Location: [id number] Narrative 04/20/2025 9:57 [place] [address] RADIOLOGY REPORT Patient Name: JOANIE GALAN Date of Service:04/20/2025 Date of :1955 Age:69 Sex:F Requesting Ashli OLVERA Examination:XR KNEE LEFT 3VW EXAM DESCRIPTION: XR KNEE LEFT 3VW REASON FOR STUDY: Left knee pain. Left knee replacement 2022, follow up. Duration: . TECHNIQUE: XR KNEE LEFT 3VW COMPARISON: 03/09/2023. FINDINGS: Left knee arthroplasty. Very thin lucency at the medial tibial bone prosthesis interface is unchanged. Components are in expected alignment. Small joint effusion appears decreased. There is evidence of patellar resurfacing with spacer. No evidence of complication. Procedure Note Canelo Whitley Jr., MD - 04/20/2025 [place] [address] RADIOLOGY REPORT Patient Name: JOANIE GALAN Date of Service:04/20/2025 Date of :1955 Age:69 Sex:F Requesting Ashli OLVERA Examination:XR KNEE LEFT 3VW EXAM DESCRIPTION: XR KNEE LEFT 3VW REASON FOR STUDY: Left knee pain. Left knee replacement 2022, follow up. Duration: . TECHNIQUE: XR KNEE LEFT 3VW COMPARISON: 03/09/2023. FINDINGS: Left knee arthroplasty. Very thin lucency at the medial tibial bone prosthesis interface is unchanged. Components are in expected alignment. Small joint effusion appears decreased. There is evidence of patellar resurfacing with spacer. No evidence of complication. IMPRESSION Left knee arthroplasty with no evidence of complication. Decreased small joint effusion. THIS IS AN ELECTRONICALLY VERIFIED FINAL REPORT 04/20/2025 9:57 AM - Electronically signed by Canelo Whitley M.D. CH: SILVIANO Report ID: [id number] Reading Location: [id number] us Suman Olvera MD DIAGNOSTIC IMAGING ORDERABLES Fi nal Result * RENAL FUNCTION PANEL (03/27/2025) Blood BLOOD SPECIMEN / Unknown 03/27/2025 us Elsy Ewing CRT-SCIENTIFIC INFORMATICS LEADER LAB - CHEMISTRY ORDERA BLES Final Result OTHER LAB * US Kidneys W Bladder (03/24/2025 3:09 [...] bladder with DICOM image capture performed by surgical scrub technologist. FINDINGS: The kidneys are symmetric in [...] and bladder with DICOMimage capture performed by surgical scrub technologist. FINDINGS: The kidneys are symmetric in [...] on 03/24/2025 4:55 PM us Elsy Ewing CRT-SCIENTIFIC INFORMATICS LEADER US ORDERABLES Final Result * MAMMO BILAT SCREENING (08/04/2020 3:03 PM [...] * HEPATITIS C ANTIBODY (12/11/2019 10:53 AM BIOINFORMATICS SUPPORT SPECIALIST) Interpretation Hepatitis C Antibody [place] Negative Negative 12/12/2019 10:59 AM BIOINFORMATICS SUPPORT SPECIALIST [facility] ([facility]) Comment: INTERPRETIVE INFORMATION: Hepatitis C Virus [...] Antibody Index 0.05 IV 12/12/2019 10:59 AM BIOINFORMATICS SUPPORT SPECIALIST [facility] ([facility]) Comment: Performed by [facility] [facility], [address] [place] [address] [email or web address], Jeremy Oneal MD, Lab. Director Blood BLOOD SPECIMEN / Unknown Lab Venipuncture / Unknown 12/11/2019 10:53 AM BIOINFORMATICS SUPPORT SPECIALIST 12/11/2019 11:00 AM BIOINFORMATICS SUPPORT SPECIALIST Bola Carrillo MD LAB - CHEMISTRY ORDERABLES Final Result [facility] ([facility]) [address] [place] [address], [facility] * DEXA BONE DENSITY STUDY [id number] (07/02/2019 3:56 PM CDT) Anatomical Region Laterality [...] - [place] [facility] MANAGED MEDICARE [facility] - [facility] MEDICAID - [place] [facility] MANAGED MEDICARE ADV TPL THIRD LIBERTARIAN LIABILITY MEDICAID - [place] TPL [employer]IRD LIBERTARIAN LIABILITY MEDICAID - [place] Advance Directives * Full Code (Latest Code Status on File) Date Activated Date Inactivated Comments 03/22/2022 10:32 AM 03/25/2022 6:18 PM * Full Code Date Activated Date Inactivated Comments 01/09/2019 2:21 PM 01/13/2019 11:58 AM Care Teams Atomic Welder Relationship Specialty Start Date End Date Duy Newman MD [address] [place] [id number] PCP - General Family Medicine 03/15/22 Elsy Ewing, CRT-SCIENTIFIC INFORMATICS LEADER [address] [address] Nurse Practitioner Nurse Practitioner 02/26/25
[2025-04-25 11:52] LABS: Alanine Aminotransferase 25 U/L (6-35); Albumin Level 4.6 g/dL (3.5-5.1); Alkaline Phosphatase 114 U/L (38-126); Anion Gap 9 mmol/L (4-12); Aspartate Amino Transferase 30 U/L (14-36); Bilirubin,Total 0.4 mg/dL (0.2-1.3); Blood Urea Nitrogen 40 mg/dL (7-17); Calcium 9.8 mg/dL (8.4-10.2); Carbon Dioxide 27 mmol/L (22-30); Chloride 104 mmol/L (98-107); Estimated Glomerular Filt Rate 49; Glucose 94 mg/dL (65-110); Magnesium 1.8 mg/dL (1.6-2.3); Phosphorus 4.6 mg/dL (2.5-4.5); Potassium 4.9 mmol/L (3.4-5.0); Sodium 140 mmol/L (137-145); Total Protein 7.6 g/dL (6.3-8.2)
[2025-04-25 12:13] LABS: Vitamin D 25 Hydroxy 49.2 ng/mL
== END 2025-04-25 11:24 | disposition home or self-care (01) ==
LOC: ANHLAB 11:25
PROVIDERS: PCP Family Medicine; Visit Provider Nurse Practitioner Family
DX: M81.0 Age-related osteoporosis without current pathological fracture (principal); R94.4 Abnormal results of kidney function studies
CPT/HCPCS: 36415; 80053; 82306; 83735; 84100

== ENCOUNTER 2025-05-07 18:50 | Emergency (ER) | payer MEDICARE, MEDICAID, SELFPAY ==
[2025-05-07 18:50] VITALS: BP 153/51; PULSE 71; RESP 16; TEMP 36.4; O2SAT 99
--- NOTE | 2025-05-07 20:30 | ED_ITS ---
HPI - Skin/Abscess/Foreign Bdy General Chief complaint: Skin/Abscess/Foreign Body Stated complaint: something bit me on my back Time Seen by Provider: 05/07/25 19:36 Source: patient Mode of arrival: ambulatory Limitations: no limitations History of Present Illness HPI narrative: Patient is a 69-year-old female who presents the ED with report of a possible insect bite to her upper back. Patient reports she noticed the area of around 1 week ago. States it is somewhat painful, itchy and has been draining. Concerned for infection and possible spider bite. Denies fever, history of diabetes. Related Data Home Medications ?Medication ?Instructions ?Recorded ?Confirmed ?Last Taken ?Type ascorbic acid (vitamin C) 1,000 mg 1 g PO DAILY 06/16/24 03/27/25 Unknown History capsule calcium carbonate 600 mg PO DAILY 06/16/24 03/27/25 Unknown History romosozumab-aqqg 210 mg/2.34 210 mg subcut MONTHLY 06/16/24 03/27/25 Unknown History mL(105 mg/1.17 mL x2)subcutaneous syringe famotidine 40 mg tablet 40 mg PO 03/27/25 03/27/25 Unknown History Allergies Allergy/AdvReac Type Severity Reaction Status Date / Time No Known Allergies Allergy Verified 03/27/25 09:27 Review of Systems Review of Systems: All systems reviewed & are unremarkable except as noted in HPI. All systems reviewed & are unremarkable except as noted in HPI and below PMFSH Past Medical History Medical History Stage 3a chronic kidney disease Stage 3b chronic kidney disease Fibromyalgia Major depression in partial remission Osteoporosis without current pathological fracture Migraine without aura and without status migrainosus, not intractable Unilateral primary osteoarthritis, left knee Generalized anxiety disorder Gastro-esophageal reflux disease without esophagitis Hyperlipidemia, unspecified Essential (primary) hypertension Surgical History Surgical History History of Mohs micrographic surgery for skin cancer 11/2020 H/O: hysterectomy 1999 History of total knee arthroplasty Left knee, 03/22/2022 Family History Family History Mother Liver cancer Father Bone cancer Social History Social History Smoking status: Former smoker Tobacco type: cigarettes Second hand tobacco smoke exposure: No Alcohol intake: never Substance use: never Substance use type: does not use Lack of Transportation: No Lack of Food: Never True Current Housing: I Have Housing Concerned About Future Housing: No Difficulty Paying Gas/Electric Bills: No Difficulty Paying for Meds: No Currently Unemployed: YES Education: High School Diploma/GED Living arrangements: alone Occupation/Education: retired Gender identity (if verbalized by the patient): Female Sexual Orientation (if Verbalized by the Patient): Straight or Heterosexual Spiritual care concerns: No Exam Narrative: GENERAL: Well appearing, obese with BMI of 37.4, non-toxic, in no acute distress. HEAD: Normocephalic, atraumatic. RESPIRATORY: Airway patent, respirations nonlabored. CARDIOVASCULAR: Regular rate and rhythm MUSCULOSKELETAL: Moves all extremities. No gross deformities. SKIN: Warm, dry, normal color. 2cm large scabbed region to mid upper back with mild surrounding erythema/mild TTP. No active bleeding or draining. No fluctuance or significant induration. NEURO: A&O X3. Speech clear. PSYCHIATRIC: Appropriate mood and affect. Normal interaction. Course Vital Signs Vital signs: Vital Signs Temperature 97.6 F 05/07/25 18:50 Pulse Rate 71 05/07/25 18:50 Respiratory Rate 16 05/07/25 18:50 Blood Pressure 153/51 H 05/07/25 18:50 Pulse Oximetry 99 05/07/25 18:50 Oxygen Delivery Room Air 05/07/25 18:50 Temperature 97.6 F 05/07/25 18:50 Pulse Rate 86 05/07/25 20:43 Respiratory Rate 18 05/07/25 20:43 Blood Pressure 119/52 L 05/07/25 20:43 Pulse Oximetry 97 05/07/25 20:43 Oxygen Delivery Room Air 05/07/25 18:50 MDM - Skin/Abscess/Foreign Bdy MDM Narrative Medical decision making narrative: Exam consistent w/ possible bug bite with mild surrounding cellulitis. Will treat for such. Bedside ultrasound was utilized by myself and no evidence of focal abscess. Will cover with doxycycline. Given return precautions. Discharged in stable condition. Medical Records Attestation: I reviewed the patient's medical records. Discharge Plan Discharge Clinical Impression: Cellulitis Qualifiers: Site of cellulitis: trunk Site of cellulitis of trunk: back Qualified Code(s): L03.312 - Cellulitis of back [any part except buttock] Insect bite Qualifiers: Encounter type: initial encounter Site of insect bite: unspecified site Qualified Code(s): W57.XXXA - Bitten or stung by nonvenomous insect and other nonvenomous arthropods, initial encounter Patient Disposition: Home Condition: Stable Instructions: Antibiotic Form, Cellulitis (ED), Insect Bite or Sting (ED) Additional Instructions: Take antibiotics as prescribed. Keep wound clean and dry, bandaged if needed. Avoid itching. Follow-up with primary care doctor for further evaluation. Return to the ED for new or worsening concerns. Patient Language: Citizen Of [place] Prescriptions: New doxycycline monohydrate 100 mg tablet 100 mg PO BID 7 Days Qty: 14 0RF No Action calcium carbonate 600 mg calcium (1,500 mg) tablet 600 mg PO DAILY ascorbic acid (vitamin C) 1,000 mg capsule 1 g PO DAILY romosozumab-aqqg 210mg/2.34mL ( 105mg/1.17mLx2) syringe 210 mg subcut MONTHLY famotidine 40 mg tablet 40 mg PO rosuvastatin 20 mg tablet 20 mg PO DAILY Qty: 90 1RF losartan 50 mg tablet 50 mg PO DAILY Qty: 90 1RF amlodipine 5 mg tablet 5 mg PO DAILY Qty: 90 1RF sertraline 50 mg tablet 75 mg PO DAILY Qty: 90 1RF pantoprazole 40 mg tablet,delayed release (DR/EC) 40 mg PO QAM Qty: 90 1RF metoprolol succinate 50 mg tablet extended release 24 hr 50 mg PO DAILY Qty: 90 0RF sumatriptan succinate 100 mg tablet See Rx Instructions PO .COMPLEX Qty: 12 0RF Rx Instructions: take 1 tab at onset of headache; if no relief, may repeat 1 tab after at least 2 hrs; max = 2 tabs/24 hrs PO Follow-up/Referrals: Duy Newman MD [Primary Care Provider] - Time of Disposition: 20:34
[2025-05-07] MEDS: DOXYCYCLINE HYCLATE 100 MG TABLET PO (20:38)
[2025-05-07 20:43] VITALS: BP 119/52; PULSE 86; RESP 18; O2SAT 97
== END 2025-05-07 20:45 | disposition home or self-care (01) ==
PROVIDERS: Emergency Provider Physician Assistant; PCP Family Medicine
DX: S20.469A Insect bite (nonvenomous) of unspecified back wall of thorax, initial encounter (principal); L03.312 Cellulitis of back [any part except buttock and flank]; I12.9 Hypertensive chronic kidney disease with stage 1 through stage 4 chronic kidney disease, or unspecified chronic kidney disease; N18.30 Chronic kidney disease, stage 3 unspecified; E78.5 Hyperlipidemia, unspecified; M17.12 Unilateral primary osteoarthritis, left knee; M79.7 Fibromyalgia; M81.0 Age-related osteoporosis without current pathological fracture; K21.9 Gastro-esophageal reflux disease without esophagitis; F41.1 Generalized anxiety disorder; F32.4 Major depressive disorder, single episode, in partial remission; Z96.652 Presence of left artificial knee joint; Z85.828 Personal history of other malignant neoplasm of skin; Z90.710 Acquired absence of both cervix and uterus; Z87.891 Personal history of nicotine dependence; Z79.899 Other long term (current) drug therapy; W57.XXXA Bitten or stung by nonvenomous insect and other nonvenomous arthropods, initial encounter
CPT/HCPCS: 99283; A9270

== ENCOUNTER 2025-05-14 12:27 | Outpatient (CLI) | payer MEDICARE, SELFPAY ==
--- OUTSIDE RECORDS SUMMARY | 2025-05-14 12:41 | XMS_ITS | Clinical Summary ---
Author Organization [facility] Address [facility] [place] [address] Care Team Providers Care Specialty Foods Cook Name Role Phone Srinivasan Newman MD Primary Care Provider [phone] Medications No known medications Active Problems Problem [...] on file Legal Sex Female 6:36 PM FARM INSTRUCTOR Gender Identity Not on file Sexual Orientation [...] SATURNINO HORACIO DIGI Routine 10/18/2023 2:35 PM FARM INSTRUCTOR Encounter for screening mammogram for malignant neoplasm of breast from Last 3 Months or Most Recently Relevant to Health Maintenance Results * MG SCREENING W SATURNINO HORACIO DIGI (10/18/2023 2:35 PM FARM INSTRUCTOR) Anatomical Region Laterality Modality Breast Bilateral Mammography 10/31/2023 8:29 AM FARM INSTRUCTOR Narrative 10/31/2023 8:32 AM FARM INSTRUCTOR IMAGING STUDIES: Bilateral screening mammograms with computer-aided [...] Liza Garcia, 10/31/2023 8:29 AM us Srinivasan Newman MD MAMMO Final Result from Last 3 Months or Most Recently Relevant to Health Maintenance Insurance [place] [address] [place] [address] Care Teams Specialty Foods Cook Relationship Specialty Start Date End Date Srinivasan Newman MD [address] [place] [id number] PCP - General FAMILY PRACTICE 04/21/22
--- OUTSIDE RECORDS SUMMARY | 2025-05-14 12:42 | XMS_ITS | Clinical Summary ---
Author Organization [facility] Address [address] [place] [address] Care Team Providers Care Records Management Director Name Role Phone Duy Newman MD Primary Care Provider [phone] Elsy Ewing APRN-J2EE ENGINEER Unavailable + [phone] Source Comments [facility],non-owned Affiliates and Associated Physician Practices is amultiple site organization consisting of ambulatory clinics and hospital sitesin [place], [place], [place] and [place]. This disclosure is being madepursuant to the Care Everywhere program and may not contain all information available regarding this patient. Last updated 18.[facility] Allergies Active Allergy Reactions Criticality Noted Date [...] disorder 10/08/2019 Overview (10/08/2019): 07.29.19 Chelsea Matthew MEDINAN-J2EE ENGINEER Essential hypertension 05/09/2019 Hyperlipidemia 05/09/2019 Migraine [...] Department Care Team Description 04/07/2025 Orders Only [facility] - Nephrology [address] [place] [address] Elsy Ewing APRN-YOLY Stage 3b chronic kidney disease (HCC) 04/03/2025 12:30 PM CDT - 04/03/2025 11:59 PM CDT Hospital Encounter [facility] - Radiology [address] [place] [address] Suman Olvera MD Orthopedics Discharge Disposition: Home or Self Care 03/25/2025 Telephone [facility] - Nephrology [address], [address] [place] [address] Elsy Ewing APRN-CNP Imaging Results 03/24/2025 2:30 PM CDT - 03/24/2025 11:59 PM CDT Hospital Encounter [facility] [address] [place] [address] Elsy Ewing APRN-CNP Discharge Disposition: Home or Self Care 03/24/2025 Travel 02/26/2025 2:30 PM CDT Office Visit [facility] - Nephrology [address], [address] [place] [address] Elsy Ewing APRN-CNP Stage 3b chronic kidney disease (HCC) (Primary Dx); Hyperlipidemia, unspecified hyperlipidemia type; Essential hypertension 02/20/2025 Orders Only [facility] - Nephrology [address], [address] [place] [address] Yolanda Rendon LPN from Last 3 Months Immunizations Immunization Administration Dates Next Due [employer] primary monoval ent 12+ yr 0.3mL Purple [...] on file Legal Sex Female 8:15 AM 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 PLATE MACHINE TENDER Gender Identity Not on file Sexual Orientation [...] Description 05/28/2025 2:30 PM CDT Office Visit [facility] - Nephrology [address], [address] [place] [address] Elsy Ewing APRN-J2EE ENGINEER [address] [facility] [address] [place] [address] Health Maintenance Due Date Last Done Comments COLOGUARD (AGES 45-75) - COLON CA SCREENING 1955 COLON MONITORING 1955 COLONOSCOPY - COLON CA SCREENING 1956 CT COLONOGRAPHY - COLON CA SCREENING 1955 Colorectal Cancer Screening 1955 FIT - COLON CA SCREENING 1955 FLEX SIG - COLON CA SCREENING 1955 ZOSTER VACCINE (1 of 2) 2006 PNEUMOCOCCAL VACCINE 50+ (2 of 2 - PCV20 or PCV21) 11/15/2022 11/15/2021 COVID-19 VACCINE (4 - season) 2024 09/14/2021, 02/02/2021, 01/12/2021 MEDICARE AWV CALENDAR YEAR 2024 11/15/2021, 07/01/2020 INFLUENZA VACCINE (#1) 2025 , 08/24/2020, 01/10/2019 MAMMOGRAM 10/18/2025 10/18/2023, 05/2023, 08/04/2020, [...] this topic Medical Devices Implanted Type Area Operating Systems Specialist Device Identifier Shelf Expiration Date Model / Serial / Lot Cmnt Bone Plc Mv+G Gnta 40gm Med Vsc Implanted:Qty: 1 on 03/22/2022 by Suman Olvera MD at [facility] Left: Knee Heraeus Kulzer Luciko 08/11/2024 [id number] / / [id number] Cmnt Bone Plc Mv+G Gnta 40gm Med Vsc Implanted:Qty: 1 on 03/22/2022 by Suman Olvera MD at [facility] Left: Knee Tony Bateman 09/11/2023 [id number] / / [id number] Cmpnt Fem Kn Lt 4 Post Stab Gns2 Legion Implanted:Qty: 1 on 03/22/2022 by Suman Olvera MD at [facility] Left: Knee [employer] 02/07/2032 [id number] / / [id number] Bsplt Tib Legion 4 Kn Lt Cmnt M Tpr Ti Implanted:Qty: 1 on 03/22/2022 by Suman Olvera MD at [facility] Left: Knee [employer] 12/09/2031 [id number] / / [id number] Cmpnt Ptlr 26mm Rsrfc Journey Lck Gns2 Implanted:Qty: 1 on 03/22/2022 by Suman Olvera MD at [facility] Left: Knee [employer] 10/19/2031 [id number] / / [id number] Ins Tib 3-4 10mm Kn Xlpe Post Stab Hi Implanted:Qty: 1 on 03/22/2022 by Suman Olvera MD at [facility] Left: Knee [employer] 04/15/2027 [id number] / / [id number] Explanted Type Area Operating Systems Specialist Device Identifier Shelf Expiration Date Model / Serial / Lot Pin Fx 65mm Spd Strl [facility] Knee [employer] [id number] / / Pin Fx 30mm Spd Rim Strl Explanted:Qty: 1 [facility] Left: Knee [employer] [id number] / / Procedures Procedure Name Priority Date/Time [...] HEPATITIS C ANTIBODY Routine 12/11/2019 10:53 AM PAPER PLATE MACHINE TENDER Need for influenza vaccination DEXA BONE DENSITY [...] Canelo Whitley M.D. CH: SILVIANO Report ID: [id number] Reading Location: [id number] Narrative 04/20/2025 9:57 [place] [address] RADIOLOGY REPORT Patient Name: JOANIE GALAN Date [...] No evidence of complication. Procedure Note Canelo Whitely Jr., MD - 04/20/2025 [place] [address] RADIOLOGY REPORT Patient Name: JOANIE GALAN Date [...] Canelo Whitley M.D. CH: SILVIANO Report ID: [id number] Reading Location: [id number] us Suman Olvera MD DIAGNOSTIC IMAGING ORDERABLES Fi nal Result * RENAL FUNCTION PANEL (03/27/2025) Blood BLOOD SPECIMEN / Unknown 03/27/2025 us Elsy Ewing HAND INSERTER OPERATOR-J2EE ENGINEER LAB - CHEMISTRY ORDERA BLES Final Result [...] bladder with DICOM image capture performed by medical imaging technologist. FINDINGS: The kidneys are symmetric in [...] and bladder with DICOMimage capture performed by medical imaging technologist. FINDINGS: The kidneys are symmetric in [...] on 03/24/2025 4:55 PM us Elsy Ewing HAND INSERTER OPERATOR-J2EE ENGINEER US ORDERABLES Final Result * MAMMO BILAT [...] * HEPATITIS C ANTIBODY (12/11/2019 10:53 AM PAPER PLATE MACHINE TENDER) Interpretation Hepatitis C Antibody [place] Negative Negative 12/12/2019 10:59 AM PAPER PLATE MACHINE TENDER [facility] ([facility]) Comment: INTERPRETIVE INFORMATION: Hepatitis C Virus [...] Antibody Index 0.05 IV 12/12/2019 10:59 AM PAPER PLATE MACHINE TENDER [facility] ([facility]) Comment: Performed by [facility], [address] [place] [address] [email or web address], Jeremy Oneal MD, Lab. Director Blood BLOOD SPECIMEN / Unknown Lab Venipuncture / Unknown 12/11/2019 10:53 AM PAPER PLATE MACHINE TENDER 12/11/2019 11:00 AM PAPER PLATE MACHINE TENDER us Bola Carrillo MD LAB - CHEMISTRY ORDERABLES Final Result [facility] ([facility]) [address] [place] [address], [facility] * US DEXA BONE DENSITY STUDY [id number] (07/02/2019 3:56 PM CDT) Anatomical Region Laterality [...] - [place] [employer] MANAGED MEDICARE [place] [address] [facility] MEDICAID - [place] [facility] MEDICAID - [place] [employer] MANAGED MEDICARE ADV TPL THIRD DEMOCRAT LIABILITY MEDICAID - [place] T[place] THIRD DEMOCRAT LIABILITY MED[place]ID - [place] Advance Directives * Full Code (Latest Code Status on File) Date Activated Date Inactivated Comments 03/22/2022 10:32 AM 03/25/2022 6:18 PM * Full Code Date Activated Date Inactivated Comments 01/09/2019 2:21 PM 01/13/2019 11:58 AM Care Teams Records Management Director Relationship Specialty Start Date End Date Duy Newman MD [address] [place] [address] PCP - General Family Medicine 03/15/22 Elsy Ewing, HAND INSERTER OPERATOR-J2EE ENGINEER [address] [address] Nurse Practitioner Nurse Practitioner 02/26/25
[2025-05-14 13:09] LABS: Hematocrit 36.5 % (37.0-47.0); Hemoglobin 11.7 g/dL (12.0-15.0); Mean Corpuscular HGB Conc 32.1 g/dl (32-36); Mean Corpuscular Hemoglobin 30.8 pg (26-34); Mean Corpuscular Volume 96.1 fl (80-100); Platelet Count Result 223 k/mm3 (150-375); Red Blood Count 3.80 M/mm3 (4.2-5.4); White Blood Count 5.7 K/mm3 (4.5-10.0)
[2025-05-14 13:11] LABS: Add Urine Microscopic? NO; Appearance Urine Clear (Clear); Glucose Urine UA Negative (Negative); Leukocyte Esterase Ur Negative LEU/UL (Negative); Nitrate Urine Negative (Negative); Specific Grav Ur 1.016 (1.001-1.035)
[2025-05-14 13:25] LABS: Albumin Level 4.4 g/dL (3.5-5.1); Anion Gap 9 mmol/L (4-12); Blood Urea Nitrogen 36 mg/dL (7-17); Calcium 9.3 mg/dL (8.4-10.2); Carbon Dioxide 25 mmol/L (22-30); Chloride 106 mmol/L (98-107); Estimated Glomerular Filt Rate 57; Glucose 90 mg/dL (65-110); Potassium 4.5 mmol/L (3.4-5.0); Sodium 140 mmol/L (137-145)
== END 2025-05-14 12:28 | disposition home or self-care (01) ==
PROVIDERS: PCP Family Medicine; Referring Provider Nurse Practitioner Family
DX: N18.32 Chronic kidney disease, stage 3b (principal); M81.0 Age-related osteoporosis without current pathological fracture
CPT/HCPCS: 36415; 80069; 81003; 85027

== ENCOUNTER 2025-06-01 16:35 | Outpatient (CLI) | payer MEDICARE, SELFPAY ==
--- NOTE | 2025-06-01 | CONSULT_PTH ---
PATIENT: Joanie Galan LOC: [facility] U#:[id number] AGE/SX: 69/F ROOM: RE06/01/[address]: Kia Cowan PA-C : 1955 BED: DIS: 06/01/2025 SPEC #: [id number] RECD: 06/02/25 14:12 STATUS: [place] REQ #: [id number] FATOU: 06/01/25 00:[address]: Kia Cowan DEPT: [facility] Consult RECD BY: Jasvir Ken ENTERED: 06/02/25 14:13 SP TYPE: Consult OTHR DR: Duy Newman MD Tissues: A - Peripheral Smear Procedures: Hematology Consult
--- OUTSIDE RECORDS SUMMARY | 2025-06-01 16:39 | XMS_ITS | Encounter Summary ---
Author Organization [facility] Address [address] [place] [address] Care Team Providers Care 3Rd Pressman Name Role Phone Duy Newman MD Primary Care Provider [phone] Elsy Ewing SENIOR BUSINESS CONSULTANT-ESTIMATOR BINDING Unavailable + [phone] Encounter Details Date Type Department Care Team (Late st Contact Info) Description 05/22/2025 Orders Only [facility] - Nephrology [address], [address] [place] [address] Yolanda Rendon LPN Social History [...] on file Legal Sex Female 8:15 AM GEODETIC SURVEY DIRECTOR Gender Identity Not on file Sexual Orientation [...] of Assessment Author No 03/22/2022 1:24 PM ROSIET Prakash Talavera RN documented as of this encounter Mental Status * Does person have difficulty concentrating/remembering/making decisions? Answer Entry Date Author No 03/22/2022 1:24 PM Prakash Torres RN documented in this encounter Plan of Treatment Upcoming Encounters Date Type Department Care Team (Late st Contact Info) Description 11/30/2025 11:00 AM GEODETIC SURVEY DIRECTOR Office Visit [facility] - Nephrology [address], [address] [place] [address] Elsy Ewing, SENIOR BUSINESS CONSULTANT-ESTIMATOR BINDING [address] [facility] [address] [place] [address] documented as of this encounter Visit Diagnoses Not on filedocumented in this encounter Additional Health Concerns Infection Onset Date Last Indicated Resolved Time MRSA Comment:+ MRSA nares 03/15/22 03/15/2022 03/15/2022 documented as of this encounter Care Teams 3Rd Pressman Relationship Specialty Start Date End Date Duy Newman MD [address] [place] [address] PCP - General Family Medicine 03/15/22 Elsy Ewing, SENIOR BUSINESS CONSULTANT-ESTIMATOR BINDING [address] [address] Nurse Practitioner Nurse Practitioner 02/26/25 documented as of this encounter
--- OUTSIDE RECORDS SUMMARY | 2025-06-01 16:39 | XMS_ITS | Encounter Summary ---
Author Organization [facility] Address [address] [place] [address] Care Team Providers Care Title Investigator Name Role Phone Duy Newman MD Primary Care Provider [phone] Elsy Ewing APRN-SOLE RUFFER Unavailable [phone] Encounter Details Date Type Department Care Team (Late st Contact Info) Description 05/22/[address] [facility] - Nephrology [address], [address] [place], [place] [id number] Elsy Ewing BUSINESS ADMINISTRATION TEACHER-SOLE RUFFER [address] [facility] [address] [place] [address] Stage 3b chronic kidney disease (HCC) Social History Tobacco Use Types Packs/Day Years [...] on file Legal Sex Female 8:15 AM ENGINEERING TECHNICIAN Gender Identity Not on file Sexual Orientation [...] 03/22/2022 1:24 PM ROSIET Prakash Talavera RN * Does person have difficulty doing errands alone? Answer Date of Assessment Author No 03/22/2022 1:24 PM Prakash Torres RN documented as of this encounter Mental Status * Does person have difficulty concentrating/remembering/making decisions? Answer Entry Date Author No 03/22/2022 1:24 PM Prakash Torres RN documented in this encounter Plan of Treatment Upcoming Encounters Date Type Department Care Team (Late st Contact Info) Description 11/30/2025 11:00 AM ENGINEERING TECHNICIAN Office Visit [facility] - Nephrology [address], [address] [place], [place] [address] Elsy Ewing APRN-SOLE RUFFER [address] [facility] [address] [place], [place] [address] documented as of this encounter Procedures Procedure Name Priority Date/Time Associated Diagnosis Comments URINALYSIS REFLEX TO MICROSCOPIC NO CULTURE Routine 05/14/2025 Stage 3b chronic kidney disease (HCC) CBC W AUTO DIFFERENTIAL Routine 05/14/2025 Stage 3b chronic kidney disease (HCC) documented in this encounter Results * CBC WITH DIFFERENTIAL (05/14/2025) Blood BLOOD SPECIMEN / Unknown 05/14/2025 Elsy Ewing APRN-SOLE RUFFER LAB - HEMATOLOGY ORDER GILBERTO Final Result Performing Organization Address City/[facility] Co de Phone Number OTHER LAB * URINALYSIS REFLEX TO MICROSCOPIC NO CULTURE (05/14/2025) Urine URINE SPECIMEN OBTAINED BY CLEAN CATCH PROCEDURE / Unknown 05/14/2025 Elsy Ewing APRN-SOLE RUFFER LAB - URINALYSIS ORDER GILBERTO Final Result Performing Organization Address [facility] Co de Phone Number OTHER LAB documented in this encounter Visit Diagnoses Diagnosis Stage 3b chronic kidney disease (HCC) documented in this encounter Additional Health Concerns Infection Onset Date Last Indicated Resolved Time MRSA Comment:+ MRSA nares 03/15/22 03/15/2022 03/15/2022 documented as of this encounter Care Teams Title Investigator Relationship Specialty Start Date End Date Duy Newman MD [address] [place] [address] PCP - General Family Medicine 03/15/22 Elsy Ewing APRN-CNP [address] [place] [address] Nurse Practitioner Nurse Practitioner 02/26/25 documented as of this encounter
--- OUTSIDE RECORDS SUMMARY | 2025-06-01 16:39 | XMS_ITS | Clinical Summary ---
Author Organization [facility] [employer] Address [address] [place] [address] Care Team Providers Care Office Services Representative Name Role Phone Duy Newman MD Primary Care Provider [phone] Elsy Ewing APRN-AIR CONDITIONING MECHANIC INDUSTRIAL Unavailable + [phone] Source Comments [facility],non-owned Affiliates and Associated Physician Practices is amultiple site organization consisting of ambulatory clinics and hospital sitesin [place], [place], [place] and [place]. This disclosure is being madepursuant to the Care Everywhere program and may not contain all information available regarding this patient. Last updated 18.[facility] [employer] Allergies Active Allergy Reactions Criticality Noted Date [...] daily 90 tablet 1 11/25/19 22 Active famotidine (PEPCID) 40 MG tablet TAKE 1 TABLET BY MOUTH TWICE DAILY 30 tablet 5 12/21/19 22 Active ascorbic acid (VITAMIN C) 500 MG tablet Take 500 mg by mouth once daily Active acetaminophen (TYLENOL) 325 MG tablet Take 2 (two) tablets by mouth every 6 hours as needed Maximum allowable Acetaminophen amount = 4 Grams (4000 mg) / 24 hours. 03/24/20 22 Active NARCAN 4 MG/0.1ML nasal spray 05/31/20 21 Active rosuvastatin (Crestor) 20 MG tablet Take [...] by mouth once daily 12/15/19 25 Active carvedilol (Coreg) 3.125 MG tablet TAKE 1 TABLET BY MOUTH EVERY 12 HOURS WITH FOOD 05/13/20 25 Active gabapentin (Neurontin) 100 MG capsule Take 1 (one) capsule by mouth 3 times daily 05/13/20 25 Active calcium carbonate (Tums) 500 MG chew tablet Take 1 (one) tablet by mouth daily with food (chew and swallow) Active furosemide (Lasix) 20 MG tablet Take 1 (one) tablet by mouth once daily 30 tablet 2 05/28/20 25 Active Calcium-Magnes ium-Vitamin D (CALCIUM 1200+D3 PO) Take 2 tablets by mouth once daily 025 Discontin ued(List Clean-Up) vitamin D3 (CHOLECALCIFER OL) 25 MCG (1000 UNITS) tablet Take 1,000 Units by mouth once daily 025 Discontin ued(List Clean-Up) traMADol (ULTRAM) 50 MG tablet Take 2 (two) tablets by mouth 4 times daily 120 tablet 03/24/20 22 025 Discontin ued(List Clean-Up) pravastatin (PRAVACHOL) 40 MG tablet TAKE 1 TABLET BY MOUTH EVERY AT BEDTIME 90 tablet 1 04/17/20 22 025 Discontin ued(List Clean-Up) triamterene-hy droCHLOROthiaz archana (Maxzide-25) 37.5-25 MG tablet Take 1 (one) tablet by mouth every morning 07/16/20 24 025 Discontin ued(List Clean-Up) metoprolol succinate XL 24hr (Toprol XL) 50 MG tablet Take 1 (one) tablet by mouth once daily 04/10/20 25 025 Discontin ued(List Clean-Up) Active Problems Problem Noted Date Diagnosed Date Gastro-esophageal reflux disease without esophag itis 03/25/2022 Bilateral primary osteoarthritis of knee 022 Encounter for insertion of p rosthetic knee after prior removal of knee prosthesis 03/25/2022 Status post left knee replacement 03/22/2022 Class [...] disorder 10/08/2019 Overview (10/08/2019): 07.29.19 Chelsea Castro HUMAN SERVICE COORDINATOR-AIR CONDITIONING MECHANIC INDUSTRIAL Essential hypertension 05/09/2019 Hyperlipidemia 05/09/2019 Migraine without [...] Encounters Date Type Department Care Team Description 05/28/2025 11:00 AM CDT Office Visit [facility] - Nephrology [address] [facility], [address] [place] [address] Elsy Ewing HUMAN SERVICE COORDINATOR-AIR CONDITIONING MECHANIC INDUSTRIAL Stage 3a chronic kidney disease (HCC) (Primary Dx); Female incontinence; Hyperlipidemia, unspecified hyperlipidemia type; Essential hypertension 05/22/2025 Orders Only [facility] - Nephrology [address] [facility], [address] [place] [address] Yolanda Rendon LPN 05/22/2025 Orders Only [facility] - Nephrology [address] [facility], [address] [place] [address] Elsy Ewing HUMAN SERVICE COORDINATOR-AIR CONDITIONING MECHANIC INDUSTRIAL Stage 3b chronic kidney disease (HCC) 04/07/2025 Orders Only [facility] - Nephrology [address] [facility], [address] [place] [address] Elsy Ewing HUMAN SERVICE COORDINATOR-AIR CONDITIONING MECHANIC INDUSTRIAL Stage 3b chronic kidney disease (HCC) 04/03/2025 12:30 PM CDT - 04/03/2025 11:59 PM CDT Hospital Encounter [facility] - Radiology [address] [place] [address] Suman Jones MD Orthopedics Discharge Disposition: Home or Self Care 03/25/2025 Telephone [facility] - Nephrology [address] [facility], [address] [place] [address] Elsy Ewing HUMAN SERVICE COORDINATOR-AIR CONDITIONING MECHANIC INDUSTRIAL Imaging Results 03/24/2025 2:30 PM CDT - 03/24/2025 11:59 PM CDT Hospital Encounter [facility] [address] [place] [address] Elsy Ewing, HUMAN SERVICE COORDINATOR-AIR CONDITIONING MECHANIC INDUSTRIAL Discharge Disposition: Home or Self Care 03/24/2025 Travel from Last 3 Months Immunizations Immunization Administration [...] 11/12/2010 Smokeless Tobacco: Never Tobacco Cessation:Counseling Given: Not Answered Alcohol Use Standard Drinks/Week Comments No 0 [...] on file Legal Sex Female 8:15 AM SHELVING SUPERVISOR Gender Identity Not on file Sexual Orientation Not on file Last Filed Vital Signs Vital Sign Reading Time Taken Comments Blood Pressure 135/71 05/28/2025 10:51 AM CDT Pulse 60 05/28/2025 10:51 AM CDT Temperature 37.1 C (98.7 F) 05/28/2025 10:51 AM CDT Respiratory Rate 18 02/26/2025 2:40 PM CDT Oxygen Saturation 97% 05/28/2025 10:51 AM CDT Inhaled Oxygen Concentration - - Weight 92.8 kg (204 lb 9.6 oz) 05/28/2025 10:51 AM CDT Height 154.9 cm (5' 1) 05/28/2025 10:51 AM CDT Body Mass Index 38.66 05/28/2025 10:51 AM CDT Plan of Treatment Upcoming Encounters Date Type Department Care Team (Late st Contact Info) Description 11/30/2025 11:00 AM SHELVING SUPERVISOR Office Visit [facility] - Ne[facility] [address] [facility], [address] [place], [place] [id number] Elsy Ewing, HUMAN SERVICE COORDINATOR-AIR CONDITIONING MECHANIC INDUSTRIAL [address] [facility] [address] [place] [address] Health Maintenance Due Date Last [...] PCV20 or PCV21) 11/15/2022 11/15/2021 COVID-19 VACCINE ( season) 2024 09/14/2021, 02/02/2021, 01/12/2021 MEDICARE AWV CALENDAR YEAR 2024 11/15/2021, 07/01/2020 INFLUENZA VACCINE (#1) 2025 , 08/24/2020, 01/10/2019 MAMMOGRAM 10/18/2025 10/18/2023, 1205/2023, 08/04/2020, Additional history exists SCREENING FOR DIABETES 03/27/2028 5, 03/25/2022, 03/24/2022, Additional history exists DTAP/TDAP/TD VACCINES [...] this topic Medical Devices Implanted Type Area Trolley Car Mechanic Device Identifier Shelf Expiration Date Model / Serial / Lot Cmnt Bone Plc Mv+G Gnta 40gm Med Vsc Implanted:Qty: 1 on 03/22/2022 by Suman Jones MD at [facility] Left: Knee aeus Blaynelzer Bhavana 08/11/2024 [id number] / / [id number] Cmnt Bone Plc Mv+G Gnta 40gm Med Vsc Implanted:Qty: 1 on 03/22/2022 by Suman Jones MD at [facility] Left: Knee Heraeus Kulzer Luciharry 09/11/2023 [id number] / / [id number] Cmpnt Fem Kn Lt 4 Post Stab Gns2 Legion Implanted:Qty: 1 on 03/22/2022 by Suman Jones MD at [facility] Left: Knee [employer] 02/07/2032 [id number] / / [id number] Bsplt Tib Legion 4 Kn Lt Cmnt M Tpr Ti Implanted:Qty: 1 on 03/22/2022 by Suman Jones MD at [facility] Left: Knee [employer] 12/09/2031 [id number] / / [id number] Cmpnt Ptlr 26mm Rsrfc Journey Lck Gns2 Implanted:Qty: 1 [facility]: Knee [employer] 10/19/2031 [id number] / / [id number] Ins Tib 3-4 10mm Kn Xlpe Post Stab Hi Implanted:Qty: 1 on 03/22/20[facility] Left: Knee [employer] 04/15/2027 [id number] / / [id number] Explanted Type Area Trolley Car Mechanic Device Identifier Shelf Expiration Date Model / Serial / Lot Pin Fx 65mm Spd Strl Explanted:Qty: 1 [facility] Left: Knee [employer] [id number] / / Pin Fx 30mm Spd Rim Strl Explanted:Qty: 1 on [facility] Left: Knee [employer] [id number] / / Procedures Procedure Name Priority Date/Time Associated Diagnosis Comments CBC W AUTO DIFFERENTIAL Routine 05/14/2025 Stage 3b chronic kidney disease (HCC) URINALYSIS REFLEX TO MICROSCOPIC NO CULTURE Routine 05/14/2025 Stage 3b chronic kidney disease (HCC) LAB RESULTS ORDER 05/14/2025 LAB RESULTS ORDER 05/14/2025 LAB RESULTS ORDER 05/14/2025 XR KNEE LEFT 3VW Routine 04/03/2025 12:3 5 PM CDT Left knee pain, unspecified chronicity RENAL FUNCTION PANEL Routine 03/27/2025 Stage 3b chronic kidney disease (HCC) US KIDNEYS W BLADDER Routine 03/24/2025 3:09 PM CDT Stage 3b chronic kidney disease (HCC) MAMMO BILAT SCREENING Routine 08/04/2020 3:03 PM CDT Breast cancer screening HEPATITIS C ANTIBODY Routine 12/11/2019 10:53 AM SHELVING SUPERVISOR Need for influenza vaccination DEXA BONE DENSITY AXIAL SKELETON Routine 07/02/2019 3:56 PM CDT Postmenopausal from Last 3 Months or Most Recently Relevant to Health Maintenance Results * LAB RESULTS ORDER (05/14/2025) Only the most recent of3 resultswithin the time period is included. 05/14/2025 Narrative 05/14/2025 Ordered by an unspecified provider. us Scanned Document LAB - THERAPEUTIC DRUG MONITORI NG ORDERABLES Final Result * URINALYSIS REFLEX TO MICROSCOPIC NO CULTURE (05/14/2025) Urine URINE SPECIMEN OBTAINED BY CLEAN CATCH PROCEDURE / Unknown 05/14/2025 Elsy Ewing APRN-AIR CONDITIONING MECHANIC INDUSTRIAL LAB - URINALYSIS ORDER GILBERTO Final Result OTHER LAB * CBC WITH DIFFERENTIAL (05/14/2025) Blood BLOOD SPECIMEN / Unknown 05/14/2025 us Elsy Ewing HUMAN SERVICE COORDINATOR-AIR CONDITIONING MECHANIC INDUSTRIAL LAB - HEMATOLOGY ORDER GILBERTO Final Result OTHER LAB * XR Knee Left 3Vw (04/03/2025 12:35 PM CDT) Anatomical Region Laterality Modality Lower Extremity Radiographic Chelsea ging 04/20/2025 9:55 AM CDT Impressions 04/20/2025 9:57 AM CDT Left knee arthroplasty with no evidence of complication. Decreased small joint effusion. THIS IS AN ELECTRONICALLY VERIFIED FINAL REPORT 04/20/2025 9:57 AM - Electronically signed by Canelo Whitley M.D. CH: SILVIANO Report ID: [id number] Reading Location: [id number] [facility] 04/20/2025 9:57 [place] [address] RADIOLOGY REPORT Patient Name: JOANIE GALAN Date of Service:04/20/2025 Date of :1955 Age:69 Sex:F Requesting PhysicianJEAN MAY Examination:XR KNEE LEFT [...] Note Canelo Whitley Jr., MD - 04/20/2025 [place] [address] RADIOLOGY REPORT Patient Name: JOANIE GALAN Date of Service:04/20/2025 Date of :1955 Age:69 Sex:F Requesting PhysicianJEAN MAY Examination:XR KNEE LEFT [...] Canelo Whitley M.D. CH: SILVIANO Report ID: [id number] Reading Location: [id number] Suman Jones MD DIAGNOSTIC IMAGING ORDERABLES Fi nal Result * RENAL FUNCTION PANEL (03/27/2025) Blood BLOOD SPECIMEN / Unknown 03/27/2025 Elsy Bryan Kaylin HUMAN SERVICE COORDINATOR-AIR CONDITIONING MECHANIC INDUSTRIAL LAB - CHEMISTRY ORDERA BLES Final Result [...] bladder with DICOM image capture performed by aeronautical engineering technologist. FINDINGS: The kidneys are symmetric [...] and bladder with DICOMimage capture performed by aeronautical engineering technologist. FINDINGS: The kidneys are symmetric [...] on 03/24/2025 4:55 PM us Elsy Ewing HUMAN SERVICE COORDINATOR-[facility] US ORDERABLES Final Result * MAMMO BILAT [...] abnormal calcifications documented. No change has occurred. us Bola Carrillo MD MAMMO ORDERABLES Final Result * HEPATITIS C ANTIBODY (12/11/2019 10:53 AM SHELVING SUPERVISOR) Interpretation Hepatitis C Antibody [place] Negative Negative 12/12/2019 10:59 AM SHELVING SUPERVISOR [employer] ([facility]) Comment: INTERPRETIVE INFORMATION: Hepatitis C Virus Antibody [...] Antibody Index 0.05 IV 12/12/2019 10:59 AM SHELVING SUPERVISOR [employer] ([facility]) Comment: Performed by [facility], [address] [place] [address] [email or web address], Jeremy Oneal MD, Lab. Director Blood BLOOD SPECIMEN / Unknown Lab Venipuncture / Unknown 12/11/2019 10:53 AM SHELVING SUPERVISOR 12/11/2019 11:00 AM SHELVING SUPERVISOR us Bola Carrillo MD LAB - CHEMISTRY ORDERABLES Final Result [employer] ([facility]) [address] * US DEXA BONE DENSITY STUDY [id number] (07/02/2019 3:56 PM CDT) Anatomical Region Laterality [...] Onset Date Last Indicated MRSA Comment:+ MRSA owen 03/15/22 03/15/2022 03/15/2022 Insurance MEDICAID - [place] [facility] MEDICARE ADV MEDICARE [facility] MEDICAID - OUT OF STATE MEDICAID - [place] [employer] [place] [phone] [employer] THIRD CONSTITUTION PARTY LIABILITY [place] [address] THIRD CONSTITUTION PARTY LIABILITY [place]ID - [place] Advance Directives * Full Code (Latest Code Status on File) Date Activated Date Inactivated Comments 03/22/2022 10:32 AM 03/25/2022 6:18 PM * Full Code Date Activated Date Inactivated Comments 01/09/2019 2:21 PM 01/13/2019 11:58 AM Care Teams Office Services Representative Relationship Specialty Start Date End Date Duy Newman MD [address] [place] [address] [id number] PCP - General Family Medicine 03/15/22 Elsy Ewing, HUMAN SERVICE COORDINATOR-AIR CONDITIONING MECHANIC INDUSTRIAL [address] [id number] Nurse Practitioner Nurse Practitioner 02/26/25
--- OUTSIDE RECORDS SUMMARY | 2025-06-01 16:39 | XMS_ITS | Clinical Summary ---
Author Organization [facility] Address [facility] [place] [address] Care Team Providers Care Oriental Rug Repairer Name Role Phone Srinivasan Newman MD Primary Care Provider [phone] Medications No known medications Active Problems Problem [...] on file Legal Sex Female 6:36 PM LIQUOR RUNNER Gender Identity Not on file Sexual Orientation [...] SATURNINO HORACIO DIGI Routine 10/18/2023 2:35 PM LIQUOR RUNNER Encounter for screening mammogram for malignant neoplasm of breast from Last 3 Months or Most Recently Relevant to Health Maintenance Results * MG SCREENING W SATURNINO HORACIO DIGI (10/18/2023 2:35 PM LIQUOR RUNNER) Anatomical Region Laterality Modality Breast Bilateral Mammography 10/31/2023 8:29 AM LIQUOR RUNNER Narrative 10/31/2023 8:32 AM LIQUOR RUNNER IMAGING STUDIES: Bilateral screening mammograms with computer-aided [...] Recently Relevant to Health Maintenance Insurance [place] [address] [place] [address] Care Teams Oriental Rug Repairer Relationship Specialty Start Date End Date Srinivasan Newman MD [address] [place] [id number] PCP - General FAMILY PRACTICE 04/21/22
[2025-06-01 17:35] LABS: Hematocrit 36.6 % (37.0-47.0); Hemoglobin 11.9 g/dL (12.0-15.0); Immature Granulocyte Percent A 0.1 % (0-0.5); Lymphocytes Absolute Auto 3.07 K/mm3 (0.9-3.2); Mean Corpuscular HGB Conc 32.5 g/dl (32-36); Mean Corpuscular Hemoglobin 30.7 pg (26-34); Mean Corpuscular Volume 94.6 fl (80-100); Nucleated Red Blood Cells Absolute Auto 0.000 K/mm3 (0.0-0.012); Nucleated Red Blood Cells Perc 0.0 % (0.0-0.2); Platelet Count Result 239 k/mm3 (150-375); Red Blood Count 3.87 M/mm3 (4.2-5.4); White Blood Count 8.0 K/mm3 (4.5-10.0)
[2025-06-01 17:49] LABS: Partial Thromboplastin Time 31.5 Seconds (22.3-36.8)
== END 2025-06-01 16:36 | disposition home or self-care (01) ==
PROVIDERS: PCP Family Medicine
DX: D69.2 Other nonthrombocytopenic purpura (principal)
CPT/HCPCS: 36415; 85025; 85730; 86037; 86364

== ENCOUNTER 2025-06-06 12:11 | Outpatient (CLI) | payer MEDICARE, SELFPAY ==
--- OUTSIDE RECORDS SUMMARY | 2025-06-06 12:16 | XMS_ITS | Clinical Summary ---
Author Organization [facility] Address [facility] [place] [address] Care Team Providers Care Wicker Molded Candles Name Role Phone Srinivasan Newman MD Primary Care Provider Medications No known medications Active Problems Problem [...] on file Legal Sex Female 6:36 PM OBSERVATION NURSE Gender Identity Not on file Sexual Orientation [...] SATURNINO HORACIO DIGI Routine 10/18/2023 2:35 PM OBSERVATION NURSE Encounter for screening mammogram for malignant neoplasm of breast from Last 3 Months or Most Recently Relevant to Health Maintenance Results * MG SCREENING W SATURNINO HORACIO DIGI (10/18/2023 2:35 PM OBSERVATION NURSE) Anatomical Region Laterality Modality Breast Bilateral Mammography 10/31/2023 8:2 9 AM OBSERVATION NURSE Narrative 10/31/2023 8:32 AM OBSERVATION NURSE IMAGING STUDIES: Bilateral screening mammograms with computer-aided [...] Recently Relevant to Health Maintenance Insurance MEDICAID [facility] Care Teams Wicker Molded Candles Relationship Specialty Start Date End Date Srinivasan Newman MD [address] [place] [id number] PCP - General FAMILY PRACTICE 04/21/22
--- OUTSIDE RECORDS SUMMARY | 2025-06-06 12:16 | XMS_ITS | Clinical Summary ---
Author Organization [facility] Address [address] [place] [address] Care Team Providers Care Batch Plant Supervisor Name Role Phone Duy Newman MD Primary Care Provider [phone] Elsy Ewing APRN-PROBATION MANAGER Unavailable + [phone] Source Comments [facility],non-owned Affiliates and Associated Physician Practices is amultiple site organization consisting of ambulatory clinics and hospital sitesin [place], [place], [place] and [place]. This disclosure is being madepursuant to the Care Everywhere program and may not contain all information available regarding this patient. Last updated 18.[facility] Allergies Active Allergy Reactions Criticality Noted Date [...] disorder 10/08/2019 Overview (10/08/2019): 07.29.19 Chelsea Castro SOLID CENTER WINDER-PROBATION MANAGER Essential hypertension 05/09/2019 Hyperlipidemia 05/09/2019 Migraine [...] Encounters Date Type Department Care Team Description 06/02/2025 Telephone [facility] - Nephrology 2 [facility], [address] [place] [address] Elsy Ewing, SOLID CENTER WINDER-PROBATION MANAGER Med Question 05/28/2025 11:00 AM CDT Office Visit [facility] - Nephrology 2 [facility], [facility] [address] [place] [address] Elsy Ewing, SOLID CENTER WINDER-PROBATION MANAGER Stage 3a chronic kidney disease (HCC) (Primary Dx); Female incontinence; Hyperlipidemia, unspecified hyperlipidemia type; Essential hypertension 05/22/2025 Orders Only [facility] - Nephrology 2 [facility], [address] [place] [address] Yolanda Rendon LPN 05/22/2025 Orders Only [facility] - Nephrology 2 [facility], [address] [place] [address] Elsy Ewing, SOLID CENTER WINDER-PROBATION MANAGER Stage 3b chronic kidney disease (HCC) 04/07/2025 Orders Only [facility] - Nephrology 2 [facility], [address] [place] [address] Elsy Ewing, SOLID CENTER WINDER-PROBATION MANAGER Stage 3b chronic kidney disease (HCC) 04/03/2025 12:30 PM CDT - 04/03/2025 11:59 PM CDT Hospital Encounter [facility] - Radiology [address] [place] [address] Suman Jones MD Orthopedics Discharge Disposition: Home or Self Care 03/25/2025 Telephone [facility] - Nephrology 2 [facility], [facility] [address] [place] [address] Elsy Ewing, NAWAF-PROBATION MANAGER Imaging Results 03/24/2025 2:30 PM CDT - 03/24/2025 11:59 PM CDT Hospital Encounter [facility] [address] [place] [address] Elsy Ewing, NAWAF-YOLY Discharge Disposition: Home or Self Care 03/24/2025 [...] on file Legal Sex Female 8:15 AM HEAD DOFFER Gender Identity Not on file Sexual Orientation [...] st Contact Info) Description 11/30/2025 11:00 AM HEAD DOFFER Office Visit [facility] - Nephrology 2 [facility], [address] [place], [place] [address] Elsy Ewing, SOLID CENTER WINDER-PROBATION MANAGER 2 [facility] [address] [place], [place] [id number] Health Maintenance Due Date Last Done Comments [...] 2024 11/15/2021, 07/01/2020 INFLUENZA VACCINE (#1) 2025 1, 08/24/2020, 01/10/2019 MAMMOGRAM 10/18/2025 10/18/2023, 05/2023, 08/04/2020, [...] this topic Medical Devices Implanted Type Area Cracking And Fanning Machine Operator Device Identifier Shelf Expiration Date Model / Serial / Lot Cmnt Bone Plc Mv+G Gnta 40gm Med Vsc Implanted:Qty: 1 on 03/22/2022 by Suman Jones MD at [facility] Left: Knee Heraeus Kulzer Bhavana 08/11/2024 [id number] / / [id number] Cmnt Bone Plc Mv+G Gnta 40gm Med Vsc Implanted:Qty: 1 on 03/22/2022 by Suman Jones MD at [facility] Left: Knee Heraeus Kulzer Bhavana 09/11/2023 [id number] / / [id number] Cmpnt Fem Kn Lt 4 Post Stab Gns2 Legion Implanted:Qty: 1 on 03/22/2022 by Suman Jones MD at [facility] Left: Knee [employer] 02/07/2032 [id number] / / [id number] Bsplt Tib Legion 4 Kn Lt Cmnt M Tpr Ti Implanted:Qty: 1 on 03/22/2022 by Suman Jones MD at [facility] Patric Left: Knee [employer] 12/09/2031 [id number] / / [id number] Cmpnt Ptlr 26mm Rsrfc Journey Lck Gns2 Implanted:Qty: 1 on 03/22/2022 by Suman Jones MD at [facility] Patric Left: Knee [employer] 10/19/2031 [id number] / / [id number] Ins Tib 3-4 10mm Kn Xlpe Post Stab Hi Implanted:Qty: 1 on 03/22/2022 by Suman Jones MD at [facility] Patric Left: Knee [employer] 04/15/2027 [id number] / / [id number] Explanted Type Area Cracking And Fanning Machine Operator Device Identifier Shelf Expiration Date Model / Serial / Lot Pin Fx 65mm Spd Strl Explanted:Qty: 1 on 03/22/2022 at [facility] Patric Left: Knee [employer] [id number] / / Pin Fx 30mm Spd Rim Strl Explanted:Qty: 1 on 03/22/2022 at [facility]. Patric Left: Knee [employer] [id number] / / Procedures Procedure Name Priority Date/Time [...] HEPATITIS C ANTIBODY Routine 12/11/2019 10:53 AM HEAD DOFFER Need for influenza vaccination DEXA BONE DENSITY [...] CATCH PROCEDURE / Unknown 05/14/2025 Elsy Ewing SOLID CENTER WINDER-PROBATION MANAGER LAB - URINALYSIS ORDER GILBERTO Final Result OTHER LAB * CBC WITH DIFFERENTIAL (05/14/2025) Blood BLOOD SPECIMEN / Unknown 05/14/2025 Elsy Ewing SOLID CENTER WINDER-PROBATION MANAGER LAB - HEMATOLOGY ORDER GILBERTO Final Result [...] Canelo Whitley M.D. CH: SILVIANO Report ID: [id number] Reading Location: [id number] Narrative 04/20/2025 9:57 [place] [address] RADIOLOGY REPORT Patient Name: JOANIE GALAN Date [...] Note Canelo Whitley Jr., MD - 04/20/2025 [place] [address] RADIOLOGY REPORT Patient Name: JOANIE GALAN Date [...] Canelo Whitley M.D. CH: SILVIANO Report ID: [id number] Reading Location: [place] [address] us Suman Jones MD DIAGNOSTIC IMAGING ORDERABLES Fi nal Result * RENAL FUNCTION PANEL (03/27/2025) Blood BLOOD SPECIMEN / Unknown 03/27/2025 Elsy Ewing SOLID CENTER WINDER-PROBATION MANAGER LAB - CHEMISTRY ORDERA BLES Final Result [...] bladder with DICOM image capture performed by medicine technologist. FINDINGS: The kidneys are symmetric in [...] and bladder with DICOMimage capture performed by medicine technologist. FINDINGS: The kidneys are symmetric in [...] on 03/24/2025 4:55 PM us Elsy Ewing SOLID CENTER WINDER-PROBATION MANAGER US ORDERABLES Final Result * MAMMO BILAT [...] * HEPATITIS C ANTIBODY (12/11/2019 10:53 AM HEAD DOFFER) Interpretation Hepatitis C Antibody MILTON Negative Negative 12/12/2019 10:59 AM HEAD DOFFER [facility] ([facility]) Comment: INTERPRETIVE INFORMATION: Hepatitis C [...] Antibody Index 0.05 IV 12/12/2019 10:59 AM HEAD DOFFER [facility] ([facility]) Comment: Performed by [facility], [address] [place] [address] [email or web address], Jeremy Oneal MD, Lab. Director Blood BLOOD SPECIMEN / Unknown Lab Venipuncture / Unknown 12/11/2019 10:53 AM HEAD DOFFER 12/11/2019 11:00 AM HEAD DOFFER us Bola Carrillo MD LAB - CHEMISTRY ORDERABLES Final Result [facility] ([facility]) [address] * US DEXA BONE DENSITY STUDY [id number] (07/02/2019 3:56 PM CDT) Anatomical Region Laterality [...] 03/15/22 03/15/2022 03/15/2022 Insurance [place] - [place] [facility] MANAGED MEDICARE [facility] MEDICARE [facility] MEDICAID - OUT OF STATE [place]ID - [place] [facility] MEDICARE [facility] THIRD LIBERTARIAN LIABILITY [place] [address] THIRD LIBERTARIAN LIABILITY Member Subscriber Plan / Payer (Ef fective 2021-Present) Name:Joanie Galan Relation to Subscriber:Self Name:Joanie Galan Payer ID:Not on file Group ID:Not on file Type:Third Republican Liability Address: [address] [id number] [place]ID - [place] Advance Directives * Full Code (Latest Code Status on File) Date Activated Date Inactivated Comments 03/22/2022 10:32 AM 03/25/2022 6:18 PM * Full Code Date Activated Date Inactivated Comments 01/09/2019 2:21 PM 01/13/2019 11:58 AM Care Teams Batch Plant Supervisor Relationship Specialty Start Date End Date Duy Newman MD [address] [place] [id number] PCP - General Family Medicine 03/15/22 Elsy Ewing, SOLID CENTER WINDER-PROBATION MANAGER [address] [address] Nurse Practitioner Nurse Practitioner 02/26/25
[2025-06-06 13:16] LABS: Alanine Aminotransferase 24 U/L (6-35); Albumin Level 4.1 g/dL (3.5-5.1); Alkaline Phosphatase 107 U/L (38-126); Anion Gap 8 mmol/L (4-12); Aspartate Amino Transferase 31 U/L (14-36); Bilirubin,Total 0.5 mg/dL (0.2-1.3); Blood Urea Nitrogen 29 mg/dL (7-17); Calcium 8.8 mg/dL (8.4-10.2); Carbon Dioxide 24 mmol/L (22-30); Chloride 109 mmol/L (98-107); Estimated Glomerular Filt Rate 58; Glucose 91 mg/dL (65-110); Magnesium 1.9 mg/dL (1.6-2.3); Potassium 3.9 mmol/L (3.4-5.0); Sodium 141 mmol/L (137-145); Total Protein 7.0 g/dL (6.3-8.2)
[2025-06-06 13:21] LABS: Parathyroid Intact 58.8 pg/mL (14.5-75.2)
[2025-06-08 13:08] LABS: Calcium, Ionized 4.8 mg/dL (4.5-5.6)
== END 2025-06-06 12:12 | disposition home or self-care (01) ==
LOC: ANHLAB 12:14
PROVIDERS: PCP Family Medicine; Visit Provider Nurse Practitioner Family
DX: M81.0 Age-related osteoporosis without current pathological fracture (principal); R94.4 Abnormal results of kidney function studies
CPT/HCPCS: 36415; 80053; 82306; 82330; 83735; 83970; 84080; 84100

== ENCOUNTER 2025-06-09 14:36 | Outpatient (RCR) | payer MEDICARE, SELFPAY ==
[2025-06-09 14:39] VITALS: BMI 38.5
== END 2025-08-25 06:24 | disposition home or self-care (01) ==
LOC: ANHDMC 14:36
PROVIDERS: PCP Family Medicine; Visit Provider Family Medicine
DX: N18.31 Chronic kidney disease, stage 3a (principal); E78.2 Mixed hyperlipidemia; E66.9 Obesity, unspecified; Z71.3 Dietary counseling and surveillance
CPT/HCPCS: 97802

== ENCOUNTER 2025-07-04 12:02 | Outpatient (CLI) | payer MEDICARE, SELFPAY ==
--- OUTSIDE RECORDS SUMMARY | 2025-07-04 12:06 | XMS_ITS | Clinical Summary ---
Author Organization [facility] Address [address] [place] [address] Care Team Providers Care Book Shelver Name Role Phone Duy Newman MD Primary Care Provider [phone] Elsy Ewing APRN-RECORD FILING CLERK Unavailable + [phone] Source Comments [facility],non-owned Affiliates and Associated Physician Practices is amultiple site organization consisting of ambulatory clinics and hospital sitesin [place], [place], [place] and [place]. This disclosure is being madepursuant to the Care Everywhere program and may not contain all information available regarding this patient. Last updated 18.[facility] Allergies Active Allergy Reactions Criticality Noted Date [...] TWICE DAILY 30 tablet 5 2 Active ascorbic acid (VITAMIN C) 500 MG tablet Take 500 mg by mouth once daily Active acetaminophen (TYLENOL) 325 MG tablet Take 2 (two) tablets by mouth every 6 hours as needed Maximum allowable Acetaminophen amount = 4 Grams (4000 mg) / 24 hours. 2 Active NARCAN 4 MG/0.1ML nasal spray 1 Active rosuvastatin (Crestor) 20 MG tablet Take [...] tablets by mouth once daily 5 Active carvedilol (Coreg) 3.125 MG tablet TAKE 1 TABLET BY MOUTH EVERY 12 HOURS WITH FOOD 5 Active gabapentin (Neurontin) 100 MG capsule Take 1 (one) capsule by mouth 3 times daily 5 Active calcium carbonate (Tums) 500 MG chew tablet Take 1 (one) tablet by mouth daily with food (chew and swallow) Active furosemide (Lasix) 20 MG tablet Take 1 (one) tablet by mouth once daily 30 tablet 2 5 Active Active Problems Problem Noted Date Diagnosed [...] disorder 10/08/2019 Overview (10/08/2019): 07.29.19 Chelsea Castro APRN-YOLY Essential hypertension 05/09/2019 Hyperlipidemia 05/09/2019 Migraine without [...] Type Department Care Team Description 06/02/2025 Telephone [facility] - Nephrology 2 [facility], [address] [place], [place] [address] Elsy Ewing APRN-CNP Med Question 05/28/2025 11:00 AM CDT Office Visit [facility] - Nephrology 2 [facility], [address] [place], [place] [id number] Elsy Ewing APRN-YOLY Stage 3a chronic kidney disease (HCC) (Primary Dx); Female incontinence; Hyperlipidemia, unspecified hyperlipidemia type; Essential hypertension 05/22/2025 Orders Only [facility] - Nephrology 2 [facility], [facility] [address] [place] [address] Yolanda Rendon LPN 05/22/2025 Orders Only [facility] - Nephrology 2 [facility], [address] [place] [address] Elsy Ewing WAITER/WAITRESS FIRST CLASS-RECORD FILING CLERK Stage 3b chronic kidney disease (HCC) 04/07/2025 Orders Only [facility] [address] [place] [address] Elsy Ewing, WAITER/WAITRESS FIRST CLASS-RECORD FILING CLERK Stage 3b chronic kidney disease (HCC) 04/03/2025 12:30 PM CDT - 04/03/2025 11:59 PM CDT Hospital Encounter [facility] - Radiology [address] [place] [id number] Suman Olvera MD Orthopedics Discharge Disposition: Home or Self Care from Last 3 Months Immunizations Immunization Administration Dates Next Due CovGalapagos primary monoval ent 12+ yr 0.3mL Purple [...] on file Legal Sex Female 8:15 AM GLASS SAGGER Gender Identity Not on file Sexual Orientation [...] st Contact Info) Description 11/30/2025 11:00 AM GLASS SAGGER Office Visit [facility] - Nephrology 2 [facility], [address] [place] [address] Elsy Ewing, NAWAF-RECORD FILING CLERK 2 [facility] [address] [place] [address] Health Maintenance Due Date Last Done Comments [...] 2025 , 08/24/2020, 01/10/2019 MAMMOGRAM 10/18/2025 10/18/2023, 12/05/2023, 08/04/2020, Additional history exists SCREENING FOR DIABETES [...] this topic Medical Devices Implanted Type Area All Source Intelligence Analyst Device Identifier Shelf Expiration Date Model / Serial / Lot Cmnt Bone Plc Mv+G Gnta 40gm Med Vsc Implanted:Qty: 1 on 03/22/2022 by Suman Olvera MD at [facility] Left: Knee Heraeus Kulzer Bhavana 08/11/2024 [id number] / / [id number] Cmnt Bone Plc Mv+G Gnta 40gm Med Vsc Implanted:Qty: 1 on 03/22/2022 by Suman Olvera MD at [facility] Patric Left: Knee Tony Bateman 09/11/2023 [id number] / / [id number] Cmpnt Fem Kn Lt 4 Post Stab Gns2 Legion Implanted:Qty: 1 on 03/22/2022 by Suman Olvera MD at [facility] [employer] Left: Knee [employer] 02/07/2032 [id number] / / [id number] Bsplt Tib Legion 4 Kn Lt Cmnt M Tpr Ti Implanted:Qty: 1 on 03/22/2022 by Suman Olvera MD at [facility] Patric Left: Knee [employer] 12/09/2031 [id number] / / [id number] Cmpnt Ptlr 26mm Rsrfc Journey Lck Gns2 Implanted:Qty: 1 on 03/22/2022 by Suman Olvera MD at [facility] [employer] Left: Knee [employer] 10/19/2031 [id number] / / [id number] Ins Tib 3-4 10mm Kn Xlpe Post Stab Hi Implanted:Qty: 1 on 03/22/2022 by Suman Olvera MD at [facility] [employer] Left: Knee [employer] 04/15/2027 [id number] / / [id number] Explanted Type Area All Source Intelligence Analyst Device Identifier Shelf Expiration Date Model / Serial / Lot Pin Fx 65mm Spd Strl [facility]:Q[facility]: Knee [employer] [id number] / / Pin Fx 30mm Spd Rim Strl Explanted:Qty: 1 [facility] Left: Knee [employer] [id number] / / Procedures Procedure Name Priority Date/Time [...] 03/27/2025 Stage 3b chronic kidney disease (HCC) MAMMO BILAT SCREENING Routine 08/04/2020 3:03 PM CDT Breast cancer screening HEPATITIS C ANTIBODY Routine 12/11/2019 10:53 AM GLASS SAGGER Need for influenza vaccination DEXA BONE DENSITY [...] BY CLEAN CATCH PROCEDURE / Unknown 05/14/2025 us Elsy Ewing APRN-RECORD FILING CLERK LAB - URINALYSIS ORDER GILBERTO Final Result OTHER LAB * CBC WITH DIFFERENTIAL (05/14/2025) Blood BLOOD SPECIMEN / Unknown 05/14/2025 us Elsy Ewing WAITER/WAITRESS FIRST CLASS-RECORD FILING CLERK LAB - HEMATOLOGY ORDER GILBERTO Final Result [...] Electronically signed by Canelo Whitley M.D. CH: Report ID: [id number] Reading Location: [id number] [facility] 04/20/2025 9:57 [place] [address] RADIOLOGY REPORT Patient Name: JOANIE GALAN Date [...] Note Canelo Whitley Jr., MD - 04/20/2025 [place] [address] RADIOLOGY REPORT Patient Name: JOANIE GALAN Date [...] Canelo Whitley M.D. CH: SILVIANO Report ID: [id number] Reading Location: [place] [address] Suman Olvera MD DIAGNOSTIC IMAGING ORDERABLES Fi nal Result * RENAL FUNCTION PANEL (03/27/2025) Blood BLOOD SPECIMEN / Unknown 03/27/2025 Elsy Ewing WAITER/WAITRESS FIRST CLASS-RECORD FILING CLERK LAB - CHEMISTRY ORDERA BLES Final Result OTHER LAB * MAMMO BILAT SCREENING (08/04/2020 3:03 PM [...] * HEPATITIS C ANTIBODY (12/11/2019 10:53 AM GLASS SAGGER) Interpretation Hepatitis C Antibody MILTON Negative Negative 12/12/2019 10:59 AM GLASS SAGGER [facility] ([facility]) Comment: INTERPRETIVE INFORMATION: Hepatitis C [...] Antibody Index 0.05 IV 12/12/2019 10:59 AM GLASS SAGGER [facility] ([facility]) Comment: Performed by [facility], [facility] [place] [address] [email or web address], Jeremy Oneal MD, Lab. Director Blood BLOOD SPECIMEN / Unknown Lab Venipuncture / Unknown 12/11/2019 10:53 AM GLASS SAGGER 12/11/2019 11:00 AM GLASS SAGGER us Bola Carrillo MD LAB - CHEMISTRY ORDERABLES Final Result [facility] ([facility]) [place] [id number] * US DEXA BONE DENSITY STUDY [id number] (07/02/2019 3:56 PM CDT) Anatomical Region Laterality Modality Radiographic Chelsae ging 07/02/2019 5:02 PM CDT Impressions 07/02/2019 [...] 03/15/22 03/15/2022 03/15/2022 Insurance [place] [facility] MANAGED MEDICARE ADV MEDICARE [facility] MEDICAID - OUT OF [facility] [place]ICAID - [place] [facility] MANAGED MEDICARE ADV [facility] MANAGED MEDICARE ADV SELF PAY NO INSURANCE Member Subscriber Plan / Payer (Ef fective for All Dates) Name:Joanie Galan Member ID:Not on file Relation to Subscriber:Not on file Name:JOANIE GALAN Subscriber ID:Not on file (Home) Address: [address] [address] Payer ID:Not on file Group ID:Not on file Type:Self Pay Address: [place], [place] [facility] THIRD CONSTITUTION PARTY LIABILITY THIRD CONSTITUTION PARTY LIABILITY [place] Advance Directives * Full Code (Latest Code Status on File) Date Activated Date Inactivated Comments 03/22/2022 10:32 AM 03/25/2022 6:18 PM * Full Code Date Activated Date Inactivated Comments 01/09/2019 2:21 PM 01/13/2019 11:58 AM Care Teams Book Shelver Relationship Specialty Start Date End Date Duy Newman MD [address] [place] [id number] PCP - General Family Medicine 03/15/22 Elsy Ewing APRN-RECORD FILING CLERK [address] [address] Nurse Practitioner Nurse Practitioner 02/26/25
[2025-07-04 13:09] LABS: Alanine Aminotransferase 21 U/L (6-35); Albumin Level 4.5 g/dL (3.5-5.1); Alkaline Phosphatase 112 U/L (38-126); Anion Gap 11 mmol/L (4-12); Aspartate Amino Transferase 33 U/L (14-36); Bilirubin,Total 0.6 mg/dL (0.2-1.3); Blood Urea Nitrogen 34 mg/dL (7-17); Calcium 9.0 mg/dL (8.4-10.2); Carbon Dioxide 24 mmol/L (22-30); Chloride 102 mmol/L (98-107); Estimated Glomerular Filt Rate 38; Glucose 97 mg/dL (65-110); Magnesium 2.3 mg/dL (1.6-2.3); Potassium 4.0 mmol/L (3.4-5.0); Sodium 137 mmol/L (137-145); Total Protein 7.5 g/dL (6.3-8.2)
== END 2025-07-04 12:03 | disposition home or self-care (01) ==
PROVIDERS: PCP Family Medicine; Visit Provider Nurse Practitioner Family
DX: M81.0 Age-related osteoporosis without current pathological fracture (principal); R94.4 Abnormal results of kidney function studies
CPT/HCPCS: 36415; 80053; 83735; 84100